=== PATIENT | male | born 1960 ===

== ENCOUNTER 2017-09-04 22:55 | Emergency (ER) | payer MEDICARE ==
[2017-09-04 22:55] VITALS: BMI 27.5
[2017-09-05 01:19] VITALS: BP 118/64; PULSE 84; RESP 18; TEMP 98.2; O2SAT 99
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
[2017-09-05] MEDS ORDERED: oxyCODONE 5 mg Immediate Release Tab PO STA ×2 (01:56→05:49)
--- NOTE | 2017-09-05 05:05 | RAD ---
EXAM: XR Right Ankle Complete, 3 or More Views CLINICAL HISTORY: 57 years old, male; Pain; Ankle; Right; Additional info: Injury TECHNIQUE: Frontal, lateral and oblique views of the right ankle. COMPARISON: No relevant prior studies available. FINDINGS: Limitations: Suboptimal positioning. Bones/joints: No displaced fracture. No dislocation. Hallux valgus deformity. Hammertoe deformities. No significant joint effusion. Soft tissues: Minimal calcification along distal Achilles tendon. IMPRESSION: 1. No displaced fracture. 2. If pain persists, suggest splinting and follow up radiographs in 7-10 days. 3. Incidental/non-acute findings are described above.
--- NOTE | 2017-09-05 10:34 | RAD ---
PROCEDURE: Pelvis and left hip HISTORY: injury COMPARISON: TECHNIQUE: Five views FINDINGS: There is an extensive amount of hardware in the left hip and femur. There is complete fusion of the left hip joint. A compression screw extends through the hip into the acetabulum and iliac bone. There is a distal thin intramedullary génesis that splits distally extending into both femoral condyles. There is no evidence of acute fracture. IMPRESSION: No acute findings
== END 2017-09-05 06:04 | disposition home or self-care (01) ==
LOC: ED 22:55
DX: S93.401A Sprain of unspecified ligament of right ankle, initial encounter (principal); S76.012A Strain of muscle, fascia and tendon of left hip, initial encounter; W01.0XXA Fall on same level from slipping, tripping and stumbling without subsequent striking against object, initial encounter; Y92.89 Other specified places as the place of occurrence of the external cause

== ENCOUNTER 2017-12-18 12:44 | Emergency (ER) | payer MEDICARE ==
[2017-12-18 12:56] VITALS: BMI 22.8
[2017-12-18 13:04] VITALS: BP 121/77; PULSE 84; RESP 18; TEMP 98.2; O2SAT 100
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
--- NOTE | 2017-12-18 13:58 | RAD ---
PROCEDURE: Left Foot Radiographs. HISTORY: Left foot pain COMPARISON: None. FINDINGS: BONES: There is diffuse bone demineralization. There is no acute fracture or bone destruction. Bone alignment is normal. JOINTS: Normal. SOFT TISSUES: Normal. OTHER FINDINGS: None. IMPRESSION: No acute fracture or dislocation.
== END 2017-12-18 15:08 | disposition home or self-care (01) ==
LOC: ED 12:44
DX: S93.602A Unspecified sprain of left foot, initial encounter (principal); W20.8XXA Other cause of strike by thrown, projected or falling object, initial encounter; I50.9 Heart failure, unspecified; I10 Essential (primary) hypertension; Z87.891 Personal history of nicotine dependence

== ENCOUNTER 2018-01-17 16:32 | Inpatient (IN) | payer MEDICARE, OTHER ==
[2018-01-17 16:32] VITALS: BMI 22.8
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
--- NOTE | 2018-01-17 17:36 | CT ---
PROCEDURE: CT HEAD WITHOUT CONTRAST. HISTORY: AMS, ? seizure/syncope COMPARISON: 12/29/2016 TECHNIQUE: Axial computed tomography images were obtained through the head/brain without intravenous contrast. Coronal and sagittal reconstructed images. Radiation dose: Total exam DLP = 884.98 mGy-cm. This CT exam was performed using one or more of the following dose reduction techniques: Automated exposure control, adjustment of the mA and/or kV according to patient size, and/or use of iterative reconstruction technique. FINDINGS: HEMORRHAGE: No intracranial hemorrhage. BRAIN: No mass effect or edema. No atrophy or chronic microvascular ischemic changes. VENTRICLES: Unremarkable. No hydrocephalus. CALVARIUM: Unremarkable. PARANASAL SINUSES: Unremarkable as visualized. No significant inflammatory changes. MASTOID AIR CELLS: Unremarkable as visualized. No inflammatory changes. OTHER FINDINGS: None. IMPRESSION: No acute intracranial abnormalities. No significant findings to account for the clinical presentation.
--- NOTE | 2018-01-17 17:53 | RAD ---
HISTORY: AMS, ? seizure COMPARISON: 08/01/2016 FINDINGS: LUNGS: No active pulmonary disease. PLEURA: No significant pleural effusion identified, no pneumothorax apparent. CARDIOVASCULAR: No radiographic findings to suggest acute or significant cardiovascular disease. OSSEOUS STRUCTURES: No significant abnormalities. VISUALIZED UPPER ABDOMEN: Normal. OTHER FINDINGS: None. IMPRESSION: No active disease. No significant interval change compared to the prior examination(s). Concordant results with the preliminary interpretation rendered by the emergency department physician procedure.
[2018-01-17 18:27] LABS: BASO # 0.03 K/mm3 (0.0-2.0); BASO % 0.2 % (0.0-3.0); EOS % 0.2 % (1.5-5.0); GRAN # 10.12 (1.4-6.5); GRAN % 83.6 % (50.0-68.0); HEMOGLOBIN 12.8 g/dL (14.0-18.0); LYMPH # 1.3 (1.2-3.4); LYMPH % 10.6 % (22.0-35.0); MEAN CELL VOLUME 87.1 fl (80.0-105.0); MEAN CORPUSCULAR HGB CONC 34.5 g/dl (31.0-37.0); MEAN PLATELET VOLUME 9.6 fl (7.0-11.0); MONO # 0.7 (0.1-0.6); MONO % 5.4 % (1.0-6.0); RBC 4.26 10^6/uL (3.5-6.1); RED CELL DISTRIBUTION WIDTH 13.3 % (11.5-14.5); WHITE BLOOD COUNT 12.1 10^3/ul (4.5-11.0)
[2018-01-17 18:38] LABS: INR 1.18 (0.93-1.08); PARTIAL THROMBOPLASTIN TIME 24.9 Seconds (25.1-36.5); PROTHROMBIN TIME 13.5 SECONDS (9.4-12.5)
[2018-01-17 18:46] LABS: ALB/GLOB RATIO 1.4 (1.1-1.8); ALBUMIN 4.8 g/dL (3.0-4.8); ALT/SGPT 20 U/L (7-56); AST/SGOT 39 U/L (17-59); BLOOD UREA NITROGEN 24 mg/dL (7-21); GFR AFRICAN-AMERICAN > 60; GFR NON-AFRICAN AMERICAN > 60
[2018-01-17] MEDS ORDERED: Potassium Chloride 20 mEq ER Tab PO STA ×2 (18:48→21:24)
[2018-01-17] MEDS ORDERED: HYDROmorphone 1 mg/ml ISec IVP STA (18:52)
[2018-01-17 18:56] LABS: TROPONIN I < 0.01 ng/mL
--- NOTE | 2018-01-17 21:09 | CARD ---
APPROVED REPORT EKG Measurement Heart [id number] <Conclusion> Normal sinus rhythm Right bundle branch block Abnormal ECG
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
[2018-01-17] MEDS: Morphine 30 mg SR Tab PO SCH (22:38)
[2018-01-18] MEDS: oxyCODONE 30 mg Immediate Release Tab PO PRN ×2 (03:27→15:02)
[2018-01-18] MEDS: Pantoprazole 40 mg EC Tab PO SCH (05:17)
[2018-01-18 06:47] LABS: BASO # 0.04 K/mm3 (0.0-2.0); BASO % 0.3 % (0.0-3.0); EOS # 0.1 (0.0-0.7); EOS % 0.5 % (1.5-5.0); GRAN # 9.04 (1.4-6.5); GRAN % 73.2 % (50.0-68.0); HEMOGLOBIN 12.1 g/dL (14.0-18.0); LYMPH # 2.5 (1.2-3.4); LYMPH % 20.1 % (22.0-35.0); MEAN CELL VOLUME 88.8 fl (80.0-105.0); MEAN CORPUSCULAR HEMOGLOBIN 29.6 pg (25.0-35.0); MEAN CORPUSCULAR HGB CONC 33.3 g/dl (31.0-37.0); MONO # 0.7 (0.1-0.6); MONO % 5.9 % (1.0-6.0); RBC 4.09 10^6/uL (3.5-6.1); RED CELL DISTRIBUTION WIDTH 13.4 % (11.5-14.5); WHITE BLOOD COUNT 12.4 10^3/ul (4.5-11.0)
[2018-01-18 06:59] LABS: LDL CHOLESTEROL 62 mg/dL (0-129)
[2018-01-18 07:11] LABS: FREE T4 1.83 ng/dL (0.78-2.19)
[2018-01-18 07:18] LABS: INR 1.21 (0.93-1.08)
[2018-01-18 07:20] LABS: ALB/GLOB RATIO 1.3 (1.1-1.8); ALBUMIN 4.1 g/dL (3.0-4.8); ALT/SGPT 17 U/L (7-56); AST/SGOT 26 U/L (17-59); BLOOD UREA NITROGEN 18 mg/dL (7-21); CALCIUM 8.3 mg/dL (8.4-10.5); GFR AFRICAN-AMERICAN > 60; GFR NON-AFRICAN AMERICAN > 60; HDL CHOLESTEROL 59 mg/dL (29-60)
[2018-01-18] MEDS ORDERED: Potassium Chloride 20 mEq ER Tab PO STA (07:33)
[2018-01-18 09:00] LABS: TROPONIN I < 0.01 ng/mL
[2018-01-18 09:06] LABS: FREE T4 1.89 ng/dL (0.78-2.19); T4 8.9 ug/dL (5.5-11.0)
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
[2018-01-18] MEDS ORDERED: Gadodiamide 287 MG/ML VIAL (15ML) IV ONE (10:12)
[2018-01-18] MEDS: POLYETHYLENE GLYCOL 3350 17 GM/Dose PACKET PO SCH ×3 (12:28→18:08)
[2018-01-18] MEDS: Enoxaparin 40 mg Syringe SC SCH (12:28)
[2018-01-18] MEDS: Morphine 30 mg SR Tab PO SCH ×2 (12:28→21:49)
[2018-01-18 12:41] LABS: FOLATE 10.8 ng/mL
--- NOTE | 2018-01-18 12:51 | US ---
PROCEDURE: Bilateral carotid artery duplex ultrasound HISTORY: Carotid stenosis PHYSICIAN(S): David Patel MD. TECHNIQUE: Duplex sonography and color-flow Doppler were used to evaluate the carotid bifurcations and limited segments of the vertebral arteries bilaterally. FINDINGS: There is mild smooth heterogeneous plaque noted at the carotid bifurcations bilaterally. The peak systolic velocity in the proximal right internal carotid artery is 69 cm/sec. This corresponds to a 20 to 39% proximal right ICA stenosis. Normal systolic velocities are noted in the proximal right external carotid artery. There is antegrade flow in the right vertebral artery. The peak systolic velocity in the proximal left internal carotid artery is 69 cm/sec. This corresponds to a 20 to 39% proximal left ICA stenosis. Normal systolic velocities are noted in the proximal left external carotid artery. There is antegrade flow in the left vertebral artery. IMPRESSION: 1. Bilateral 20-39% proximal ICA stenoses. 2. Antegrade flow in both vertebral arteries.
--- NOTE | 2018-01-18 13:39 | CARD ---
APPROVED REPORT EXAM: Two-dimensional and M-mode echocardiogram with Doppler and color Doppler. INDICATION Syncope 2D DIMENSIONS Left Atrium (2D)3.0 (1.6-4.0cm)IVSd1.3 (0.7-1.1cm) LVDd3.5 (3.9-5.9cm)PWd1.3 (0.7-1.1cm) LVDs2.6 (2.5-4.0cm)FS (%) 25.1 % LVEF (%)50.6 (>50%) M-Mode DIMENSIONS Aortic Root3.50 (2.2-3.7cm)Aortic Cusp Exc.2.10 (1.5-2.0cm) Aortic Valve AoV Peak Bojgwrtk234.0cm/Bogdan Peak GR.6mmHg Mitral Valve MV E Kyebohnb46.4cm/sMV A Fqiikajv26.4cm/sE/A ratio1.3 TDI E/Lateral E'0.0E/Medial E'0.0 Tricuspid Valve TR Peak Dzkmuzha488dt/sRAP VYZPMMMD28qhVgLE Peak Gr.19mmHg [id number] LEFT VENTRICLE The left ventricle is normal size. There is normal left ventricular wall thickness. Left ventricle systolic function is borderline. There is normal LV segmental wall motion. Transmitral Doppler flow pattern is abnormal. RIGHT VENTRICLE The right ventricle is normal size. There is normal right ventricular wall thickness. The right ventricular systolic function is normal. ATRIA The left atrium size is normal. The right atrium size is normal. AORTIC VALVE The aortic valve is not well visualized. No aortic regurgitation is present. There is no aortic valvular stenosis. MITRAL VALVE The mitral valve is normal in structure. There is no mitral valve regurgitation noted. There is no mitral valve stenosis. GREAT VESSELS The aortic root is normal in size. PERICARDIAL EFFUSION There is no pericardial effusion. <Conclusion> The left ventricle is normal size. There is normal left ventricular wall thickness. Left ventricle systolic function is borderline. There is normal LV segmental wall motion.
[2018-01-18 14:49] LABS: URINE BILIRUBIN NEGATIVE (NEGATIVE); URINE BLOOD SMALL (NEGATIVE); URINE GLUCOSE (UA) NEGATIVE (NEGATIVE); URINE LEUKOCYTE ESTERASE NEGATIVE Leu/uL (NEGATIVE); URINE PROTEIN NEGATIVE mg/dL (<30 mg/dL); URINE UROBILINOGEN 0.2 E.U./dL (<1 E.U./dL)
[2018-01-18 14:50] LABS: URINE APPEARANCE CLEAR (CLEAR); URINE COLOR YELLOW (YELLOW)
[2018-01-18 14:53] LABS: URINE BACTERIA FEW (NEG); URINE WBC 0 - 2 /hpf (0-6)
--- NOTE | 2018-01-18 14:57 | MRI ---
PROCEDURE: MRI BRAIN WITH AND WITHOUT CONTRAST HISTORY: ?syncope/siezure activity COMPARISON: None. TECHNIQUE: Multiplanar, multisequence MR images of the brain were obtained with and without intravenous contrast enhancement. FINDINGS: HEMORRHAGE: None DWI: No evidence of an acute or early subacute infarction. BRAIN PARENCHYMA: There is borderline diffuse cerebral atrophy appreciated. Minimal white matter signal changes are appreciated at the left periventricular space with a chronic lacune identified at the left periventricular white matter as well. Corticomedullary differentiation remains good throughout the brain and high-resolution imaging through the temporal lobes fail to demonstrate a pattern that would suggest mesial temporal sclerosis. There is no mass effect or suspicious extra-axial fluid collection identified. Posterior fossa contents appear grossly unremarkable. ENHANCEMENT: No abnormal intracranial enhancement. VENTRICLES: Unremarkable. No hydrocephalus. CRANIUM: Unremarkable. ORBITS: Grossly unremarkable. PARANASAL SINUSES/MASTOIDS: Clear VASCULAR SYSTEM: Skull base flow voids intact. OTHER FINDINGS: None . IMPRESSION: 1. Limited diffuse cerebral pleural atrophy and trace chronic microangiopathy. No abnormal intracranial enhancement. 2. No definite intracranial hemorrhage, mass effect or evidence of an acute or subacute brain infarction at this time. A chronic lacune is seen in the left periventricular white matter. 3. High-resolution imaging through the temporal lobes fails demonstrate definitive pathology.
--- NOTE | 2018-01-18 14:59 | MRI ---
PROCEDURE: Magnetic Resonance Angiography Brain HISTORY: ?syncope/seizure COMPARISON: None available. TECHNIQUE: 3D time of flight MR angiography of the intracranial arteries was performed. Rotating maximum intensity projection images were generated. FINDINGS: INTERNAL CAROTID ARTERIES: Unremarkable. The skull base, petrous, cavernous and supraclinoid segments are bilaterally widely patient. ANTERIOR CEREBRAL ARTERIES: Unremarkable. A1 and A2 segments are widely patent. Smaller distal branches unremarkable, as visualized. MIDDLE CEREBRAL ARTERIES: Unremarkable. M1 and M2 segments are widely patent. Perisylvian branches grossly symmetric. POSTERIOR CIRCULATION: Basilar Artery: Unremarkable. Distal Vertebral Arteries: Patent as imaged. Right dominant vertebrobasilar circulation. Posterior Cerebral Arteries: Unremarkable. Posterior Inferior Cerebellar Arteries: Unremarkable. ANEURYSM/ VASCULAR MALFORMATIONS: None. OTHER FINDINGS: None. IMPRESSION: Unremarkable MR angiography of the brain.
[2018-01-18] MEDS: Sodium Chloride 0.9% 1,000 ML IV SCH ×3 (15:03→20:37)
--- NOTE | 2018-01-18 16:38 | CP.PCM.PCO ---
Physician Communication Note - Physician Communication Note Physician Communication Note: pt was at ECHO, as per RN pt is not agitated, no acute issues, will f/u am
[2018-01-18 17:10] LABS: BARBITURATES, UR NEGATIVE (NEGATIVE); BENZODIAZEPINES, UR NEGATIVE (NEGATIVE); OPIATES, UR POSITIVE (NEGATIVE); PHENCYCLIDINE, UR NEGATIVE (NEGATIVE)
--- NOTE | 2018-01-18 19:16 | PN ---
DATE: 01/18/2018 SUBJECTIVE: The patient is seen on his way to MRI. Overnight nurse's notes were reviewed. The patient's telemetry monitoring shows sinus rhythm, sinus bradycardia. PHYSICAL EXAMINATION: VITAL SIGNS: T-max is 98; pulse 61, 56, 58; blood pressure 143/90; respirations 18; O2 sat 96%. HEENT: Head examination normocephalic, atraumatic. HEENT examination shows pinkish conjunctivae. Anicteric sclerae. No oropharyngeal lesion. No neck rigidity. CHEST: Kyphosis. LUNGS: Shows no rales, crackles or wheezing. CARDIOVASCULAR: S1, S2, regular rhythm. ABDOMEN: Soft. Positive bowel sound. No hepatosplenomegaly noted. GENITALIA: Male. RECTAL: Deferred. EXTREMITY: Shows no pitting edema, no calf tenderness, no Homans' sign. MUSCULOSKELETAL: Shows positive left lower extremity deformity. Motor strength is 5/5 in the upper and lower extremity. Cranial nerves II through XII limited. Gait examination is not tested. PSYCHIATRIC: Positive for narcotic dependent. DIAGNOSTICS: On 01/18/2018, WBC 12.4, hemoglobin and hematocrit 12.1 and 36.3; platelet 372; granulocytes 73. PT 14, INR 1.21. Chemistries: Potassium is 3.5, BUN is down to normal at 18, creatinine 0.6, calcium 8.3, magnesium 2.1. LFTs are within normal limit. Troponin is negative. Cholesterol 149, LDL 62, HDL 59. Vitamin B12 of 358. Thyroid panel is negative. RPR negative. The patient's carotid ultrasound, MRI of the brain were noted. Echocardiogram results were noted. IMPRESSION AND PLAN: 1. Questionable seizure versus questionable syncope. 2. Questionable possible drug and narcotic withdrawal symptoms. 3. Questionable seizure-like activity with questionable and possible syncope. 4. Chronic narcotic-dependent pain syndrome. 5. History of avascular necrosis of the left lower extremity. 6. Asymptomatic bradycardia. 7. History of hypertension. 8. Leukocytosis with granulocytosis. 9. Normocytic anemia. 10. Hypokalemia. 11. Mild prerenal kidney injury. 12. Ketonuria. 13. Microscopic hematuria. 14. Pyuria. 15. Bacteriuria. 16. Bilateral 20-39% proximal internal carotid artery stenosis. 17. Cerebral cortical atrophy of the brain. 18. Left periventricular white matter chronic lacunar infarct. 21. Left periventricular white matter chronic lacunar infarct. 22. Left ventricular ejection fraction of 50%. 23. Borderline left ventricular systolic function of 50%. 24. Right bundle-branch block. 25. Hypokalemia. 26. Constipation. 27. Narcotic dependent. 28. Chronic narcotic-dependent pain syndrome. 29. Hypercholesterolemia. 1. Questionable seizure versus questionable syncope. 2. Questionable possible drug and narcotic withdrawal symptoms. 3. Questionable seizure-like activity with questionable and possible syncope. 4. Chronic narcotic-dependent pain syndrome. 5. History of avascular necrosis of the left lower extremity. 6. Asymptomatic bradycardia. 7. History of hypertension. 8. Leukocytosis with granulocytosis. 9. Normocytic anemia. 10. Hypokalemia. 11. Mild prerenal kidney injury. 12. Ketonuria. 13. Microscopic hematuria. 14. Pyuria. 15. Bacteriuria. 16. Bilateral 20-39% proximal internal carotid artery stenosis. 17. Cerebral cortical atrophy of the brain. 18. Left periventricular white matter chronic lacunar infarct. 21. Left periventricular white matter chronic lacunar infarct. 22. Left ventricular ejection fraction of 50%. 23. Borderline left ventricular systolic function of 50%. 24. Right bundle-branch block. 25. Hypokalemia. 26. Constipation. 27. Narcotic dependent. 28. Chronic narcotic-dependent pain syndrome. 29. Hypercholesterolemia. Plan at this time, the patient is awaiting Neurology, Psychiatry and Cardiology evaluation. The patient's EEG results are pending. Repeat labs ordered. Current medications: Aspirin 81 mg daily. The patient's potassium supplementation ordered, Lipitor 40 mg daily, Lovenox 40 mg subcu daily, MiraLax 17 g three times a day, morphine extended release 90 mg every 12, Lovenox 40 mg subcu daily, Lipitor 40 mg daily, MiraLax 17 g three times a day, morphine extended release 90 mg every 12, oxycodone 30 mg every 8 p.r.n., Protonix 40 mg daily, Senokot 17.2 mg at bedtime, 0.9 normal saline at 100 mL an hour, oxygen 2 L continuous. Heart-healthy diet, out of bed, seizure precaution, CLIFFORD stockings, SCDs, occupational therapy, physical therapy ordered. The patient underwent EEG, results pending. The patient is awaiting Neurology, Cardiology, Psychiatry evaluation. Dictated and electronically signed, not read. Luis San MD [facility]
--- NOTE | 2018-01-18 23:18 | CON ---
DATE: 01/18/2018 HISTORY OF PRESENT ILLNESS: This is a 57-year-old male with past medical history of right bundle branch block , history of DVT, COPD, chronic pain and osteoarthritis, came to the emergency room, possibly had a witnessed seizure-like activity and tried to wake him up and immediately after the episode, patient did not bit tongue, no urinary incontinence, with the patient. PAST MEDICAL HISTORY: Hypertension, anemia, anxiety, depression, history of DVT, COPD. SOCIAL HISTORY: Active smoker. ALLERGIES: ALLERGIC TO CELEBREX, IBUPROFEN AND NAPROXEN. MEDICATIONS: Oxycodone. PHYSICAL EXAMINATION: HEENT: Normocephalic, atraumatic. NECK: Supple. NEUROLOGIC: Awake, oriented to self. ASSESSMENT: A 57-year-old with a past medical history of deep venous thrombosis, chronic obstructive lung disease, arthritis and query seizure at home. No tongue bite, no urinary incontinence. CAT scan of the head was done, which was reported negative and workup in progress. We will do MRI of the head and MRA. We will follow up. Ernst Snyder MD
[2018-01-19] MEDS: Pantoprazole 40 mg EC Tab PO SCH (05:09)
[2018-01-19] MEDS: Sodium Chloride 0.9% 1,000 ML IV SCH ×2 (05:12→22:52)
[2018-01-19 06:53] LABS: BASO # 0.03 K/mm3 (0.0-2.0); BASO % 0.4 % (0.0-3.0); EOS # 0.2 (0.0-0.7); EOS % 1.9 % (1.5-5.0); GRAN # 4.92 (1.4-6.5); GRAN % 63.5 % (50.0-68.0); HEMOGLOBIN 11.7 g/dL (14.0-18.0); LYMPH % 26.3 % (22.0-35.0); MEAN CELL VOLUME 88.3 fl (80.0-105.0); MEAN CORPUSCULAR HEMOGLOBIN 29.8 pg (25.0-35.0); MEAN CORPUSCULAR HGB CONC 33.8 g/dl (31.0-37.0); MEAN PLATELET VOLUME 9.7 fl (7.0-11.0); MONO # 0.6 (0.1-0.6); MONO % 7.9 % (1.0-6.0); RBC 3.92 10^6/uL (3.5-6.1); RED CELL DISTRIBUTION WIDTH 13.1 % (11.5-14.5); WHITE BLOOD COUNT 7.8 10^3/ul (4.5-11.0)
[2018-01-19 07:45] LABS: ALB/GLOB RATIO 1.3 (1.1-1.8); ALBUMIN 3.8 g/dL (3.0-4.8); ALT/SGPT 22 U/L (7-56); AST/SGOT 22 U/L (17-59); BILIRUBIN,DIRECT 0.2 mg/dL (0.0-0.4); BLOOD UREA NITROGEN 8 mg/dL (7-21); CALCIUM 8.4 mg/dL (8.4-10.5); GFR AFRICAN-AMERICAN > 60; GFR NON-AFRICAN AMERICAN > 60
[2018-01-19] MEDS ORDERED: Potassium Chloride 40 mEq/30 ml LIQ UD PO ONE (09:03)
[2018-01-19] MEDS: Enoxaparin 40 mg Syringe SC SCH (09:12)
[2018-01-19] MEDS: POLYETHYLENE GLYCOL 3350 17 GM/Dose PACKET PO SCH ×3 (09:13→17:30)
[2018-01-19] MEDS: Morphine 30 mg SR Tab PO SCH ×2 (09:13→22:50)
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
--- NOTE | 2018-01-19 12:55 | DS ---
HOSPITAL COURSE: The patient is seen in room 362 bed 1. The patient is lying in the bed. Overnight nurse's notes were reviewed. EEG was completed, results pending. The patient was seen by speech therapist. The patient was noted to have [id number] oropharyngeal dysphagia with moderate aspiration due to oral motor weakness, low voice, slow oral transit, oral residual, intermittent fatigue and tremors. Overnight nurse's notes were reviewed. No adverse events documented; otherwise, the patient was pain free. PHYSICAL EXAMINATION: VITAL SIGNS: T-max 98.2; pulse 63, 65; blood pressure 95/72, 123/89, 143/90, 149/89; respirations 20, O2 sat 95-96%. HEENT: The patient's head examination: Normocephalic, atraumatic. HEENT examination shows pinkish conjunctivae. Anicteric sclerae. No oropharyngeal lesion. No neck rigidity. CHEST: Examination, symmetrical. LUNGS: Examination shows no rales, crackles or wheezing. CARDIOVASCULAR: S1, S2. Regular rhythm. ABDOMEN: Soft. Positive bowel sound. GENITALIA: Male. RECTAL: Examination is deferred. EXTREMITIES: Shows no pitting edema, no calf tenderness, no Velia's signs. Motor strength is 5/5. MUSCULOSKELETAL: Examination shows a body mass index of 23. Cranial nerves II-XII limited. Gait examination is not tested. DIAGNOSTICS: 01/19, WBC 7.8, hemoglobin/hematocrit 11.7 and 34.6; platelets 328. Sodium 143, potassium 3.5, chloride 103, CO2 29, anion gap 15, BUN 8, creatinine 0.6. GFR greater than 60. Glucose 96, calcium 8.4, magnesium 2.1 and 1.8. LFTs are normal. Troponin is negative. B12, folate, lipid panel was noted. Blood cultures negative. MRI and MRA of the brain was noted. Echocardiogram results were noted and explained to the patient. FINAL IMPRESSION, PLAN AND DISCHARGE DIAGNOSES: 1. Questionable seizure-like activity with questionable possible syncope versus possible drug and narcotic withdrawal. 2. Chronic narcotic-dependent pain syndrome. 3. Hypertension. 4. Leukocytosis with granulocytosis. 5. Normocytic anemia. 6. Hypokalemia. 7. Prerenal kidney injury. 8. Ketonuria. 9. Microscopic hematuria. 10. Bacteriuria. 11. Bilateral 20-39% proximal internal carotid artery stenosis. 12. Cerebral cortical atrophy of the brain. 13. Left periventricular white matter chronic lacunar infarct. 14. Borderline left ventricular systolic function with left ventricular ejection fraction of 51%. 15. Right bundle-branch block. 1. Questionable seizure versus questionable syncope. 2. Questionable possible drug and narcotic withdrawal symptoms. 3. Questionable seizure-like activity with questionable and possible syncope. 4. Chronic narcotic-dependent pain syndrome. 5. History of avascular necrosis of the left lower extremity. 6. Asymptomatic bradycardia. 7. History of hypertension. 8. Leukocytosis with granulocytosis. 9. Normocytic anemia. 10. Hypokalemia. 11. Mild prerenal kidney injury. 12. Ketonuria. 13. Microscopic hematuria. 14. Pyuria. 15. Bacteriuria. 16. Bilateral 20-39% proximal internal carotid artery stenosis. 17. Cerebral cortical atrophy of the brain. 18. Left periventricular white matter chronic lacunar infarct. 21. Left periventricular white matter chronic lacunar infarct. 22. Left ventricular ejection fraction of 50%. 23. Borderline left ventricular systolic function of 50%. 24. Right bundle-branch block. 25. Hypokalemia. 26. Constipation. 27. Narcotic dependent. 28. Chronic narcotic-dependent pain syndrome. 29. Hypercholesterolemia. 1. Questionable seizure versus questionable syncope. 2. Questionable possible drug and narcotic withdrawal symptoms. 3. Questionable seizure-like activity with questionable and possible syncope. 4. Chronic narcotic-dependent pain syndrome. 5. History of avascular necrosis of the left lower extremity. 6. Asymptomatic bradycardia. 7. History of hypertension. 8. Leukocytosis with granulocytosis. 9. Normocytic anemia. 10. Hypokalemia. 11. Mild prerenal kidney injury. 12. Ketonuria. 13. Microscopic hematuria. 14. Pyuria. 15. Bacteriuria. 16. Bilateral 20-39% proximal internal carotid artery stenosis. 17. Cerebral cortical atrophy of the brain. 18. Left periventricular white matter chronic lacunar infarct. 21. Left periventricular white matter chronic lacunar infarct. 22. Left ventricular ejection fraction of 50%. 23. Borderline left ventricular systolic function of 50%. 24. Right bundle-branch block. 25. Hypokalemia. 26. Constipation. 27. Narcotic dependent. 28. Chronic narcotic-dependent pain syndrome. 29. Hypercholesterolemia. 16. [id number] oropharyngeal dysphagia with moderate risk for aspiration due to oral motor weakness, low voice, slow oral transit, oral residue and intermittent fatigue and tremors. 17. Constipation. 18. Dyslipidemia. PLAN: At this time, the patient has been medically cleared. The patient will be discharged to Psychiatry Service to 5B, was accepted; otherwise, the patient main may be discharged home after cleared by Neurology, Psychiatry and Cardiology if EEG is negative. Discharge followup with his own PMD, Neurology, Psychiatry and Pain Management doctor. The patient and the family to release all records from this hospitalization to PMD, Neurology, Psychiatry and Pain Management. DISCHARGE RESTRICTION: No alcohol, no smoking, no driving. The patient was advised to resume all home medications. The patient's home medications are Colace 100 mg three times a day, Tylenol 650 every 6 hours p.r.n., DuoNeb nebulizer four times a day, Xanax 2 mg every 8 hours p.r.n., aspirin 81 daily, Lipitor 40 mg daily, Drisdol 50,000 units weekly, morphine extended release 100 mg p.o. every 12 hours, oxycodone 30 mg four times a day. p.r.n. The last two medications, morphine and oxycodone, appears to be the most active medication. The other medications, the patient has apparently been not taking. The patient was also advised to resume his Protonix 40 mg, daily MiraLax 17 g 3 times a day. In addition, the patient was advised to take aspirin 81 daily, Colace 100 mg three times a day, Lipitor 40 mg daily, MiraLax 17 g three times a day, Protonix 40 mg daily. The patient was extensively explained about the details of his medical condition. The patient was explained about all the diagnostic test results which he acknowledged to understand. All questions concerned answered at length during this hospitalization at length and the patient was advised to minimize or control his narcotic use and the patient was advised about the consequences and risk of narcotic use, which he acknowledged to understand. The patient was advised close outpatient followup with his primary care physician, Neurology, Psychiatry, Pain Management, and Cardiology. Dictated and electronically signed, not read. Luis San MD [facility] # [id number] MTDAhmet
--- NOTE | 2018-01-19 14:13 | CON ---
DATE: 01/19/2018 CARDIOLOGY CONSULTATION HISTORY OF PRESENT ILLNESS: The patient is a 57-year-old male who presented with an episode of mild confusion. He states he was resting when all of a sudden developed mild headache and dizziness and some forgetfulness. No chest pain noted. No shortness of breath. PAST MEDICAL HISTORY: Includes a history of pulmonary embolism several years ago. The patient had seizure as a childhood. He denies previous cardiac history although is unaware of a previous myocardial infarction. No chest pain. No shortness of breath. He does suffer from hypercholesterolemia. He is on oxycodone at home. REVIEW OF SYSTEMS: [id number] review of systems was free of cardiac symptomatology. PHYSICAL EXAMINATION: VITAL SIGNS: Blood pressure 100 systolic, heart rates in the 70s. NECK: Negative JVD. LUNGS: Without rales. HEART: S1 and S2. EXTREMITIES: Without edema. LABORATORY DATA: Hemoglobin is 11.7. Chemistries: BUN and creatinine are unremarkable. Troponin is negative x1. EKG reveals normal sinus rhythm with right bundle-branch block with nonspecific ST-T changes. Echocardiogram reveals good LV function. No LV outflow obstruction. IMPRESSION: 1. Altered mental status, which is now resolved. 2. History of hypercholesterolemia. 3. History of pulmonary embolism. 4. Abnormal EKG. PLAN: The patient is being discharged today. We will arrange for an outpatient stress test to rule out coronary artery disease, which is unrelated to his presenting symptoms. David Zhao MD
[2018-01-19] MEDS: oxyCODONE 30 mg Immediate Release Tab PO PRN (16:50)
--- NOTE | 2018-01-20 02:59 | CON ---
DATE: 01/19/2018 HISTORY OF PRESENT ILLNESS: In short, the patient is a 57-year-old male who was admitted on the medical side for evaluation of altered mental status and possible seizures witnessed by his . Patient presented to be depressed and patient has multiple stressors in his life, that is why medical team requested evaluation by this data analyst report writer. Patient was seen and examined today. Patient presented to be alert, pleasant, mildly anxious. Patient's is next to him. Patient's son is resting in his bed. As per patient, patient's son has autistic spectrum disorder and he is blind. Patient reported that he lost his mother last year and anniversary is coming this February. Patient reported that recently he was feeling depressed. Patient reported that he has nightmares. Patient reported that at times he feels hopeless and helpless. Patient reported that he has difficulty to function, has insomnia, poor appetite, but patient denied any thoughts of killing himself or others. Patient reported that he is not seeing Psychiatrist in the community and alprazolam was prescribed by Dr. Herrera, Brick Baker. Patient reported that at times he could hear some noises or voices what are not there, but patient does not present to be psychotic. Patient reported that he never tried to kill himself in the past . Based on the history, patient has one short psychiatric admission and it was under Dr. Arellano's service in 2013 for suicidal ideations. Patient said that he is stressed out to take care of his autistic son. This data analyst report writer reviewed vital signs, seems to be stable. Temperature 98.2, pulse is 72, blood pressure 95/72, respiration 20, oxygen saturation is 95. As per nursing staff, patient has episode of desaturation when he tried to ambulate. Physical therapy also evaluated the patient and recommended Transitional Care Unit. This data analyst report writer reviewed medical notes as well as patient had brain MRI, which was done yesterday . There is no definite intracranial hemorrhage, mass effect or evidence of acute or subacute brain infarction at this time. A chronic lacunar seen in left periventricular white matter. High resolution imaging through the temporal lobe failed to demonstrate definitive pathology, limited diffuse atrophy and trace chronic microangiopathy. Had MRA also done, which was negative. Patient was seen by Dr. Snyder, notes reviewed. MEDICATIONS: Reviewed. Patient is on aspirin, Lipitor, Colace, Lovenox, morphine, oxycodone, Protonix, MiraLax, Senokot and sodium chloride. LABORATORY DATA: Labs reviewed. Initially,patient has leukocytosis, but today patient's WBC cells 7.8, hemoglobin and hematocrit 11.7 and 34.6. Coagulation reviewed. Chemistry reviewed. Toxicology positive for opioids. MENTAL STATUS EXAMINATION: Patient presented to be alert, oriented, pleasant, cooperative, intermittent eye contact. Speech was normal rate, tone, quality and quantity. Mood described, "I am depressed." Affect was constricted. Thought process: Sometimes, patient appears to be circumstantial and tangential. Thought content: Patient reported that at times he hears some voices or noises. Patient does not appear to be psychotic, but guarded. Insight and judgment seems to be fair. Impulses are well controlled. IMPRESSION: Based on presentation, patient most likely has mood spectrum disorder, rule out major depressive disorder, rule out posttraumatic stress disorder. Patient's twin daughter in early infancy. Patient's son is having autistic spectrum and he is blind. PLAN: This data analyst report writer offered the patient admission to the Psychiatric Inpatient Unit. Patient wants to think about it with his . Patient denied that he is suicidal, but patient appears to be depressed and anxious. Patient might benefit from admission, but this is up to the family. Meanwhile, patient has multiple medical issues. Patient desaturates when ambulates also. Physical therapy recommended Transitional Care Unit. This data analyst report writer offered Remeron for the nighttime for insomnia and depressive symptoms. Risks, benefits and alternatives discussed with the patient over the weekend. Dr. Coleman will follow up on this patient. Thank you very much for letting me participate in care of your patient. Should you have any questions, give me a call back. Cindy Gould MD
[2018-01-20] MEDS: oxyCODONE 30 mg Immediate Release Tab PO PRN ×2 (05:09→13:37)
[2018-01-20] MEDS: Pantoprazole 40 mg EC Tab PO SCH (06:30)
[2018-01-20 06:59] LABS: BASO # 0.02 K/mm3 (0.0-2.0); BASO % 0.3 % (0.0-3.0); EOS # 0.1 (0.0-0.7); EOS % 1.6 % (1.5-5.0); GRAN # 5.27 (1.4-6.5); GRAN % 70.2 % (50.0-68.0); HEMOGLOBIN 12.1 g/dL (14.0-18.0); LYMPH # 1.5 (1.2-3.4); LYMPH % 20.3 % (22.0-35.0); MEAN CELL VOLUME 88.1 fl (80.0-105.0); MEAN PLATELET VOLUME 9.9 fl (7.0-11.0); MONO # 0.6 (0.1-0.6); MONO % 7.6 % (1.0-6.0); RBC 4.04 10^6/uL (3.5-6.1); WHITE BLOOD COUNT 7.5 10^3/ul (4.5-11.0)
[2018-01-20 07:24] LABS: ALB/GLOB RATIO 1.2 (1.1-1.8); ALBUMIN 3.9 g/dL (3.0-4.8); ALT/SGPT 22 U/L (7-56); AST/SGOT 29 U/L (17-59); BILIRUBIN,DIRECT 0.3 mg/dL (0.0-0.4); BLOOD UREA NITROGEN 11 mg/dL (7-21); CALCIUM 8.8 mg/dL (8.4-10.5); GFR AFRICAN-AMERICAN > 60; GFR NON-AFRICAN AMERICAN > 60
[2018-01-20 08:19] VITALS: BP 122/83; RESP 19; TEMP 98.6; O2SAT 94
[2018-01-20] MEDS: Morphine 30 mg SR Tab PO SCH (09:34)
[2018-01-20] MEDS: POLYETHYLENE GLYCOL 3350 17 GM/Dose PACKET PO SCH ×2 (09:37→13:42)
[2018-01-20] MEDS: Enoxaparin 40 mg Syringe SC SCH (09:38)
[2018-01-20 14:27] VITALS: PULSE 79
--- NOTE | 2018-01-20 21:29 | CON ---
DATE: 01/20/2018 HISTORY OF PRESENT ILLNESS: Patient is a 57-year-old male who is medically admitted for evaluation of altered mental status and witnessed seizures by his . Psychiatry followed up with patient yesterday for depression secondary to multiple stressors in his life. I reviewed Dr. Gould's note, which indicated that patient did admit to depression, nightmares, feelings of hopelessness and helplessness, insomnia, poor appetite. Patient denies having any thoughts of harming himself or others and although he at times continue hearing voices that are not there, he did not appear to be psychotic at all. Patient had indicated he was considering transfer to the psychiatric unit and this provider is following up with patient regarding his current functioning and symptoms. I met with the patient at bedside this morning and he remains alert and well oriented to circumstances and month and year and location. Patient has very good memory of Dr. Gould's visit yesterday and he is communicative, speak with this provider today. Patient reported that he is depressed about current stressors in his life; however, he is not hopeless and he does not have any wishes or suicidal thoughts. He is hopeful about the future, improving. He does not have any hallucinations and he presented as coherent and goal-directed and responses relevant as well as consistent with questions. Delusions were not elicited. Patient's sleep is a little bit affected he indicated that he deferred on taking Remeron as he does not want to take this medication as he is generally against anti-depressants due to fear of side effect. Patient feels like he could function fairly well without antidepressant at this time and he deferred on any further psychiatric management while he is in the hospital. Specifically, he refuses any inpatient hospitalizations or transitions that suspect. Patient does report that his had made an appointment to see a psychiatrist in [place] and the followup is supposed to schedule for next week. Patient that Remeron be discontinued. Insight and judgment are considered to be fair. VITAL SIGNS: Reviewed by this provider. LABORATORY DATA: Reviewed by this provider. RELEVANT PSYCHIATRIC MEDICATIONS: Only include Remeron 30 mg at bedtime which patient respectively requests to be discontinued as he does not want to take any psychiatric antidepressants. IMPRESSION: Rule out major depressive disorder, rule out posttraumatic stress disorder. Patient's presentation appears to be secondary to adjustment disorder with depression and anxiety. PLAN AND RECOMMENDATIONS: I will continue Remeron per patients' request. Patient appears to be stable, though depressed. He is showing good judgment and can communicate easily. He does not appear to be a danger to himself. Denies having any suicidal thoughts. He is not psychotic. He does not have any history of suicide attempt. Patient also reports intent to follow up with a psychiatric outpatient provider next week, indicates that his has setup an appointment for him to follow up with somebody in [place] next week. Psychiatry will sign off on this patient at this time. Please re-consult if there are any changes in patient's presentation. Sage Coleman MD
--- NOTE | 2018-01-21 07:57 | DS ---
HOSPITAL COURSE: The patient was declined to be admitted to Psychiatry, now being discharged to TCU. The patient's discharge could not be done yesterday because of the delay in evaluation period by the Psychiatry and non-acceptance and denial by the Psychiatry. PHYSICAL EXAMINATION: VITAL SIGNS: T-max 98.6, pulse 68 to 79, blood pressure 122/83, respirations 19, O2 sat is 94%, 95%, 96%. GENERAL: Patient was seen lying in the bed, complaining of reflux symptoms, which he said that is worse by lying down. The patient was advised to sit up in the chair and walk around and the patient was advised to avoid lying down after having breakfast, which would increase his reflux, but that does not want to be out of bed to chair. HEENT: Head: Normocephalic, atraumatic. HEENT: Shows pink conjunctivae. Anicteric sclerae. No oropharyngeal lesion. NECK: No neck rigidity. CHEST: Kyphosis. LUNGS: Shows no rales, crackles or wheezing. CARDIOVASCULAR: S1, S2. Regular rhythm. ABDOMEN: Soft. Positive bowel sound. GENITALIA: Male. RECTAL: Deferred. EXTREMITIES: Shows no pitting edema, no calf tenderness, no Velia's signs. NEUROLOGIC: Patient is alert, awake, oriented x3. Cranial nerves II though XII intact. Gait examination is not tested. Vascular examination, palpable pulses. Motor strength is 5/5. MUSCULOSKELETAL: Shows a body mass index of 23. DIAGNOSTICS: 01/20, WBC 7.5, hemoglobin/hematocrit 12.1 and 35.6, platelets 335. Granulocytes 70. PT 14. Sodium 146, potassium 3.5, chloride 101, CO2 31, anion gap 17, BUN 11, creatinine 0.6. GFR greater than 60. Glucose 100, calcium 8.8, magnesium 1.9. LFTs are normal. RPR is nonreactive. Urine cultures, no growth. Blood cultures, no growth. FINAL IMPRESSION, PLAN AND DISCHARGE DIAGNOSES: 1. Questionable seizure versus seizure-like activity versus syncope. 2. Possible drug, narcotics and withdrawal. 3. Chronic narcotic-dependent pain syndrome. 4. Hypertension. 5. Leukocytosis with granulocytosis. 6. Normocytic anemia. 7. Hypokalemia. 8. Prerenal kidney injury. 9. Ketonuria. 10. Microscopic hematuria. 11. Bacteriuria. 12. Bilateral 20%-39% proximal internal carotid artery stenosis. 13. Cerebral cortical atrophy of the brain. 14. Left periventricular white matter chronic lacunar infarct. 15. Borderline left ventricular systolic function with left ventricular ejection fraction of 51%. 16. Right bundle-branch block. 17. [id number] oropharyngeal dysphagia with moderate risk for aspiration due to oral motor weakness, low voice, slow oral transit, oral residue and intermittent fatigue and tremors. 16. Constipation. 17. Dyslipidemia. 18. Altered mental status. 19. Depression. 20. Anxiety. 21. Insomnia. 22. Mood spectrum disorder. 23. Possible major depressive disorder. 24. Possible posttraumatic stress disorder. 25. Right bundle branch block. PLAN: At this time, the patient has been cleared for discharge and transferred to TCU by Cardiology, Neurology, Psychiatry. CURRENT DISCHARGE MEDICATIONS: As follows: Ecotrin 81 mg daily, Colace 100 mg three times a day, Lipitor 40 mg daily, Lovenox 40 mg subcu daily, MiraLax 17 g 3 times a day, Morphine Sulfate extended release 90 mg every 12, oxycodone 30 mg every 8 p.r.n. The patient was given K-rider 20 mEq x2 today, Protonix 40 mg daily, Remeron 15 mg at bedtime p.r.n., Senokot 17.2 mg at bedtime. At present, the patient will be discharged on the above medication to be continued. The patient will be continued on Transitional Care Unit for physical therapy, occupational therapy, ambulation therapy. The patient will be ordered out of bed to chair. During this hospitalization, the patient was extensively explained about the details of his medical condition, diagnoses, test results. All details are explained to the patient at length and all questions concerned answered, which he acknowledged and understood in detail. Time spent in the entire discharge process more than 45 minutes. Dictated and electronically signed, not read. Luis San MD
--- NOTE | 2018-01-22 10:48 | CP.PCM.PCO ---
Physician Communication Note - Physician Communication Note Physician Communication Note: psychiatric team signed off
[2018-01-22 15:25] LABS: 23 KD (IGG) BAND Nonreactive
== END 2018-01-20 14:31 | DRG 101 ==
LOC: ED 16:32 → ERH 18:48 → 3RNO 21:08
PROVIDERS: ADMIT Internal Medicine; ATTEND Internal Medicine
DX: R56.9 Unspecified convulsions (principal); F11.20 Opioid dependence, uncomplicated; I13.0 Hypertensive heart and chronic kidney disease with heart failure and stage 1 through stage 4 chronic kidney disease, or unspecified chronic kidney disease; N39.0 Urinary tract infection, site not specified; D64.9 Anemia, unspecified; E78.00 Pure hypercholesterolemia, unspecified; E78.5 Hyperlipidemia, unspecified; E87.6 Hypokalemia; F17.200 Nicotine dependence, unspecified, uncomplicated; F32.89 Other specified depressive episodes; F41.9 Anxiety disorder, unspecified; G47.00 Insomnia, unspecified; G89.4 Chronic pain syndrome; H54.7 Unspecified visual loss; I50.9 Heart failure, unspecified; N18.9 Chronic kidney disease, unspecified; I45.10 Unspecified right bundle-branch block; I65.29 Occlusion and stenosis of unspecified carotid artery; J44.9 Chronic obstructive pulmonary disease, unspecified; K59.00 Constipation, unspecified; R13.12 Dysphagia, oropharyngeal phase; R31.29 Other microscopic hematuria; Z79.82 Long term (current) use of aspirin; Z81.8 Family history of other mental and behavioral disorders; Z82.3 Family history of stroke; Z86.711 Personal history of pulmonary embolism; Z86.718 Personal history of other venous thrombosis and embolism; Z87.442 Personal history of urinary calculi; Z90.81 Acquired absence of spleen; Z88.6 Allergy status to analgesic agent; G31.9 Degenerative disease of nervous system, unspecified; R00.1 Bradycardia, unspecified

== ENCOUNTER 2018-01-20 14:35 | Inpatient (IN) | payer OTHER ==
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
[2018-01-20 17:06] VITALS: BMI 24.7
[2018-01-20] MEDS: POLYETHYLENE GLYCOL 3350 17 GM/Dose PACKET PO SCH (17:23)
[2018-01-20] MEDS: oxyCODONE 30 mg Immediate Release Tab PO PRN (19:39)
[2018-01-20] MEDS: Morphine 30 mg SR Tab PO SCH (21:52)
[2018-01-21] MEDS: Enoxaparin 40 mg Syringe SC SCH (05:21)
[2018-01-21] MEDS: Pantoprazole 40 mg EC Tab PO SCH (05:21)
[2018-01-21] MEDS: oxyCODONE 30 mg Immediate Release Tab PO PRN ×2 (05:26→17:58)
[2018-01-21] MEDS: Potassium Chloride 20 mEq ER Tab PO SCH (08:05)
--- NOTE | 2018-01-21 08:55 | CP.PCM.PN ---
Subjective - Date & Time of Evaluation Date of Evaluation: 01/21/18 Time of Evaluation: 07:55 - Subjective Subjective: (covering for Dr. San) Patient is seen this morning in the transitional care unit room 314. He is lying in bed comfortable. He has no new complaints. Objective - Vital Signs/Intake and Output Vital Signs (last 24 hours): Temp Pulse Resp BP Pulse Ox 97.7 F 59 L 18 111/74 95 01/20/18 16:48 01/20/18 16:48 01/20/18 16:48 01/20/18 16:48 01/20/18 14:57 - Medications Medications: Current Medications Aspirin (Aspirin Chewable) 81 mg PO 0800 [facility] Last Admin: 01/21/18 08:05 Dose: 81 mg Atorvastatin Calcium (Lipitor) 40 mg PO DAILY [facility] Docusate Sodium (Colace) 100 mg PO TID [facility] Last Admin: 01/20/18 17:22 Dose: Not Given Enoxaparin Sodium (Lovenox) 40 mg SC 0600 [facility] PRN Reason: Protocol Last Admin: 01/21/18 05:21 Dose: 40 mg Mirtazapine (Remeron) 15 mg PO HS PRN PRN Reason: Anxiety Morphine Sulfate (Morphine Extended Release Tab) 90 mg PO Q12 [facility] Last Admin: 01/20/18 21:52 Dose: 90 mg Oxycodone HCl (Oxycodone Immediate Release Tab) 30 mg PO Q8 PRN PRN Reason: Pain, moderate (4-7) Last Admin: 01/21/18 05:26 Dose: 30 mg Pantoprazole Sodium (Protonix Ec Tab) 40 mg PO 0600 [facility] Last Admin: 01/21/18 05:21 Dose: 40 mg Polyethylene Glycol (Miralax) 17 gm PO TID [facility] Last Admin: 01/20/18 17:23 Dose: Not Given Potassium Chloride (K-Dur 20 Meq Er Tab) 20 meq PO 0800 [facility] Last Admin: 01/21/18 08:05 Dose: 20 meq Sennosides (Senokot Tab) 17.2 mg PO HS [facility] Last Admin: 01/20/18 21:53 Dose: 17.2 mg - Constitutional Appears: No Acute Distress - Head Exam Head Exam: ATRAUMATIC, NORMOCEPHALIC - Cardiovascular Exam Cardiovascular Exam: +S1, +S2 - GI/Abdominal Exam GI & Abdominal Exam: Soft, Normal Bowel Sounds. absent: Tenderness - Extremities Exam Extremities Exam: Normal Inspection - Neurological Exam Neurological Exam: Alert, Awake, Oriented x3 Assessment and Plan - Assessment and Plan (Free Text) Assessment: Seizure like activity vs. syncope History of DVT/PE COPD Osteoarthritis HTN Plan: Patient is seen this morning. He will continue physical therapy. He is on chronic pain medications. He will continue his maintenance medications.
[2018-01-21] MEDS: Morphine 30 mg SR Tab PO SCH ×2 (09:59→21:33)
[2018-01-21] MEDS: POLYETHYLENE GLYCOL 3350 17 GM/Dose PACKET PO SCH ×3 (10:01→17:55)
[2018-01-22] MEDS: Pantoprazole 40 mg EC Tab PO SCH (05:26)
[2018-01-22] MEDS: Enoxaparin 40 mg Syringe SC SCH (05:26)
[2018-01-22] MEDS: oxyCODONE 30 mg Immediate Release Tab PO PRN ×3 (05:31→22:24)
[2018-01-22 07:25] LABS: BASO # 0.01 K/mm3 (0.0-2.0); BASO % 0.1 % (0.0-3.0); EOS # 0.3 (0.0-0.7); GRAN # 7.27 (1.4-6.5); GRAN % 70.7 % (50.0-68.0); HEMOGLOBIN 11.4 g/dL (14.0-18.0); LYMPH # 1.9 (1.2-3.4); LYMPH % 18.1 % (22.0-35.0); MEAN CORPUSCULAR HEMOGLOBIN 29.8 pg (25.0-35.0); MEAN CORPUSCULAR HGB CONC 33.4 g/dl (31.0-37.0); MEAN PLATELET VOLUME 9.7 fl (7.0-11.0); MONO # 0.8 (0.1-0.6); MONO % 8.1 % (1.0-6.0); RBC 3.83 10^6/uL (3.5-6.1); RED CELL DISTRIBUTION WIDTH 13.2 % (11.5-14.5); WHITE BLOOD COUNT 10.3 10^3/ul (4.5-11.0)
[2018-01-22] MEDS: Potassium Chloride 20 mEq ER Tab PO SCH (07:58)
[2018-01-22 08:06] LABS: ALB/GLOB RATIO 1.3 (1.1-1.8); ALBUMIN 3.9 g/dL (3.0-4.8); ALT/SGPT 19 U/L (7-56); AST/SGOT 21 U/L (17-59); BLOOD UREA NITROGEN 17 mg/dL (7-21); CALCIUM 8.7 mg/dL (8.4-10.5); GFR AFRICAN-AMERICAN > 60; GFR NON-AFRICAN AMERICAN > 60
[2018-01-22] MEDS: POLYETHYLENE GLYCOL 3350 17 GM/Dose PACKET PO SCH ×3 (10:10→17:04)
[2018-01-22] MEDS: Morphine 30 mg SR Tab PO SCH ×2 (10:12→21:23)
[2018-01-22] MEDS: Magnesium Oxide 400 mg Tab UD PO SCH (10:54)
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
--- NOTE | 2018-01-22 15:40 | PN ---
DATE: 01/22/2018 SUBJECTIVE: The patient was seen in the gym room in room 314. The patient is doing stationary bike. The patient states that she is interested in going home today. I have advised the patient to contact the Hot Walker regarding her wishes. Overnight nurse's notes were reviewed. OBJECTIVE: GENERAL: The patient was found to be alert, awake, oriented x3. VITAL SIGNS: T-max is 98.6; heart rate 59, 75, 71; blood pressure 101/69, 115/75, 111/74; respirations 18, O2 sat 95-99%. HEENT: Head examination, normocephalic, atraumatic. HEENT examination shows pinkish conjunctivae. Anicteric sclerae. No oropharyngeal lesion. No neck rigidity. CHEST: Examination, kyphosis. LUNGS: Examination shows no rales, crackles or wheezing. CARDIOVASCULAR: Examination, S1, S2, regular rhythm. Questionable soft systolic murmur, left sternal border and right second intercostal space. ABDOMEN: Soft. Positive bowel sounds. No hepatosplenomegaly noted. GENITALIA: Male. RECTAL: Examination is deferred. EXTREMITIES: Show no pitting edema, no calf tenderness, no Homans' sign. NEUROLOGIC: The patient is alert, awake, oriented x3. Cranial nerves II-XII intact. Motor strength is 5/5 in the upper and lower extremities. Gait examination is not tested. At this time, the patient is performing stationary bike. PSYCHIATRIC: As per psychiatric evaluation. Body mass index is 25. DIAGNOSTICS: 01/22, WBC 10.3, hemoglobin and hematocrit 11.4, 34.1, platelets 364. Granulocytes 71% segs. Sodium 139, potassium 3.9, chloride 97, CO2 32, anion gap 14, BUN 17, creatinine 0.7, GFR greater than 60, glucose 103 and 96, calcium 8.7, magnesium is 1.7 which is low normal. LFTs are normal. Potassium is 3.9 which is also low normal. IMPRESSION AND PLAN: 1. Deconditioning. 2. Gait dysfunction. 3. Status post questionable seizure versus seizure-like activity. 4. Questionable possible syncope. 5. Chronic narcotic-dependent pain syndrome. 6. Status post leukocytosis. 7. History of pulmonary embolism. 8. History of deep venous thrombosis. 9. History of hypertension. 10. Noncompliance with anticoagulation. 11. Questionable and possible drug and narcotic withdrawal syndrome. 12. Avascular necrosis of the left lower extremity. 13. Asymptomatic bradycardia. 14. Normocytic anemia with mild granulocytosis. 15. Hypokalemia. 16. Prerenal kidney injury. 17. Ketonuria. 18. Microscopic hematuria. 19. Pyuria. 20. Bacteriuria. 21. Bilateral 20 39% proximal internal carotid artery stenosis. 22. Cerebral cortical atrophy of the brain. 23. Left periventricular white matter chronic lacunar infarct. 24. Left ventricular ejection fraction of 50% with borderline left ventricular systolic function. 25. Right bundle-branch block. 26. Constipation. 27. Hypercholesteremia. 28. Pyuria. 29. Mild to moderate oropharyngeal dysphagia with moderate risk for aspiration due to oral motor weakness, low voice, low oral transit, oral residue and intermittent fatigue and tremors (resolved). 30. Depression. 31. Insomnia. 32. Possible mood spectrum disorder versus major depressive disorder versus post-traumatic stress disorder. 33. Possible adjustment disorder with anxiety disorder. 34. Borderline hypokalemia and hypomagnesemia. 35. Constipation. 36. Dyslipidemia. PLAN: At this time, the patient is to be continued on Transitional Care Unit until approved number of days; unless the patient wishes to leave early, the patient is to be continued with Psychiatry followup. CURRENT MEDICATIONS: 1. Aspirin 81 mg p.o. daily. 2. Colace 100 mg three times a day. 3. K-Dur 20 mEq daily. 4. Lipitor 40 mg daily. 5. Lovenox 40 mg subcutaneous daily. 6. Magnesium oxide 400 mg daily. 7. MiraLax 17 g three times a day. 8. Morphine extended release 60 mg every 12 hours. which has been decreased by the medical biller/coder. 9. The patient is on oxycodone 30 mg every 8 hours p.r.n. 10. Protonix 40 mg daily. 11. Remeron 15 mg at bedtime p.r.n. 12. Senokot 17.2 mg at bedtime. 13. Xanax 0.5 mg t.i.d. p.r.n. for anxiety. Oxygen nasal cannula. Altered GI hepatic diet. Aspiration precaution, out of bed, SCDs, CLIFFORD stockings, occupational therapy, physical therapy, speech therapy. has been noted. The patient was seen by the speech therapist. The patient had appropriate swallowing function, previous deficiencies have resolved. Dictated and electronically signed, not read. Luis San MD
[2018-01-23] MEDS: Enoxaparin 40 mg Syringe SC SCH (06:08)
[2018-01-23] MEDS: Pantoprazole 40 mg EC Tab PO SCH (06:08)
[2018-01-23] MEDS: oxyCODONE 30 mg Immediate Release Tab PO PRN ×3 (06:17→21:32)
[2018-01-23] MEDS: Potassium Chloride 20 mEq ER Tab PO SCH (08:37)
[2018-01-23] MEDS: POLYETHYLENE GLYCOL 3350 17 GM/Dose PACKET PO SCH ×3 (09:53→17:44)
[2018-01-23] MEDS: Magnesium Oxide 400 mg Tab UD PO SCH (09:53)
[2018-01-23] MEDS: Morphine 30 mg SR Tab PO SCH ×2 (09:56→21:31)
--- NOTE | 2018-01-23 13:26 | PN ---
DATE: 01/23/2018 SUBJECTIVE: The patient is seen in room 314, bed 1. The patient is out of bed to chair. The patient himself is stating that he is feeling significantly better after having physical therapy and occupational therapy, ambulation therapy done on TCU. The patient states that he is feeling stronger, more determined, not depressed, less anxious and more energetic. REVIEW OF SYSTEMS: Thirteen system review was done. Pertinent positive and negative dictated above. PHYSICAL EXAMINATION: VITAL SIGNS: T-max 98.6, heart rate 71, blood pressure 101/69. Interestingly, the patient had no vital signs documented since 01/21/2018. HEENT: The patient's head examination normocephalic, atraumatic. HEENT examination shows pinkish conjunctivae. Anicteric sclerae. No oropharyngeal lesion. No neck rigidity. CHEST: Kyphosis. LUNGS: Examination shows no rales, crackles or wheezing. CARDIOVASCULAR: S1 and S2, regular rhythm. ABDOMEN: Soft. Positive bowel sound. GENITALIA: Male. RECTAL: Deferred. EXTREMITY: Shows no pitting edema, no calf numbness, no Homans' sign. NEUROLOGICAL: The patient is alert, awake and oriented x3. Cranial nerves II through XII intact. Gait examination is independent without any assisting devices. MUSCULOSKELETAL: Shows a body mass index 25. PSYCHIATRIC: The patient denies any suicidal or homicidal ideation. Denies any auditory or visual hallucination. Denies any anxiety, depression. DIAGNOSTICS: None from today. IMPRESSION AND PLAN: 1. Deconditioning. 2. Gait dysfunction. 3. Chronic narcotic-dependent pain syndrome. 4. Status post questionable seizure-like activity versus questionable syncope versus drug withdrawal. 5. Status post leukocytosis. 6. Right bundle-branch block. 7. Hypertension. 8. History of poor compliance. 9. Normocytic anemia with granulocytosis. 10. Hypokalemia. 11. Constipation. 12. Hyperlipidemia. 13. Hypomagnesemia. 14. Insomnia. 15. Anxiety disorder. Plan at this time the patient will be continued on Transitional Care Unit with daily physical therapy, occupational therapy, ambulation therapy, gait training. The patient's current medications are Ecotrin 81 mg daily, Colace 100 mg three times a day, K-Dur 20 mEq daily, Lipitor 40 mg daily, Lovenox 40 mg subcu daily, magnesium oxide 400 mg daily, MiraLax 17 g three times a day, morphine extended release 60 mg p.o. every 12, oxycodone 30 mg p.o. every 8 hours p.r.n., Protonix 40 mg daily, Remeron 15 mg at bedtime p.r.n., Senokot 17.2 mg at bedtime, Xanax 0.5 mg t.i.d. p.r.n., oxygen per liters nasal cannula. Altered GI hepatic diet. Aspiration precautions. Head of the bed at 30 degrees. SCDs, CLIFFORD stockings, out of bed to chair ordered. The patient will continue on physical therapy, occupational therapy, gait training. The patient is agreeing to complete the TCU approved duration. We are awaiting further recommendation from Psychiatry. Dictated and electronically signed, not read. Luis San MD
[2018-01-24] MEDS: Pantoprazole 40 mg EC Tab PO SCH (05:36)
[2018-01-24] MEDS: Enoxaparin 40 mg Syringe SC SCH (05:36)
[2018-01-24] MEDS: oxyCODONE 30 mg Immediate Release Tab PO PRN ×3 (06:34→22:02)
[2018-01-24] MEDS: Potassium Chloride 20 mEq ER Tab PO SCH (07:48)
[2018-01-24] MEDS: Morphine 30 mg SR Tab PO SCH ×2 (09:41→21:16)
[2018-01-24] MEDS: Magnesium Oxide 400 mg Tab UD PO SCH (09:42)
[2018-01-24] MEDS: POLYETHYLENE GLYCOL 3350 17 GM/Dose PACKET PO SCH ×3 (09:42→17:47)
--- NOTE | 2018-01-24 21:44 | PN ---
DATE: 01/24/2018 SUBJECTIVE: Patient was seen in the chamber room. Patient was doing exercises. Patient was later seen in room 314, bed 1. Patient is alert, awake, responsive. Initially, patient wanted to leave the Transitional Care Unit and wanted to sign out against medical advice. Patient was advised against signing out AMA. OBJECTIVE: VITAL SIGNS: T-max 98.4 to 98.6 to 99.4; pulse rate 75 to 81; blood pressure 115/83, 118/72; respirations 18; O2 sat 95%. HEENT: Head: Normocephalic, atraumatic. HEENT examination shows pinkish conjunctivae. Anicteric sclerae. No oropharyngeal lesion. NECK: No neck rigidity. CHEST: Kyphosis. LUNGS: Shows no rales, crackles, or wheezing. CARDIOVASCULAR: S1, S2, regular rhythm. Questionable soft systolic murmur, left sternal border, right second intercostal space. ABDOMEN: Soft. Positive bowel sounds. GENITALIA: Male. RECTAL: Deferred. EXTREMITY: Shows no pitting edema, no calf tenderness, no Homans' sign. NEUROLOGIC: Patient is alert, awake, oriented x3. Cranial nerves II through XII intact. Gait examination is independent. Patient is seen on the stationary bike. VASCULAR: Palpable pulses. PSYCHIATRIC: As per Psychiatry evaluation. DIAGNOSTIC DATA: None. IMPRESSION: 1. Deconditioning. 2. Gait dysfunction. 3. Poor compliance. 4. Normocytic anemia. 5. Granulocytosis. 6. Right bundle-branch block. 7. Chronic narcotic-dependent pain syndrome. 8. Hypokalemia. 9. Dyslipidemia. 10. Hypomagnesemia. 11. Narcotic-induced constipation. 12. Insomnia, depression, anxiety. PLAN: At this time, patient is started on aspirin 81 daily, Colace 100 three times a day, K-Dur 20 mEq daily, Lipitor 40 mg daily, Lovenox 40 mg subcu daily, magnesium oxide 400 mg daily, MiraLax 17 g three times a day, morphine extended release 60 mg every 12 hours, oxycodone 30 mg every eight p.r.n., Protonix 40 mg daily, Remeron 15 mg at bedtime p.r.n., Senokot 17.2 mg at bedtime, Xanax 0.5 mg t.i.d. p.r.n. Oxygen nasal cannula. CLIFFORD stockings. Out of bed. Seizure precaution. Occupational therapy, physical therapy, speech therapy ordered. Patient has been threatening to sign out against medical advice. Patient has been advised against signing out against medical advice, which he acknowledged to understand. Patient is contemplating about possible signing out AMA. Dictated and electronically signed, not read. Luis San MD
[2018-01-25] MEDS: Pantoprazole 40 mg EC Tab PO SCH ×2 (05:47→05:50)
[2018-01-25] MEDS: Enoxaparin 40 mg Syringe SC SCH (05:47)
[2018-01-25] MEDS: Potassium Chloride 20 mEq ER Tab PO SCH (08:13)
[2018-01-25] MEDS: Morphine 30 mg SR Tab PO SCH ×2 (09:20→21:52)
[2018-01-25] MEDS: Magnesium Oxide 400 mg Tab UD PO SCH (09:24)
[2018-01-25] MEDS: POLYETHYLENE GLYCOL 3350 17 GM/Dose PACKET PO SCH ×3 (09:25→17:28)
[2018-01-25] MEDS ORDERED: Morphine 30 mg SR Tab PO SCH (11:14)
[2018-01-25 11:27] VITALS: O2SAT 97
[2018-01-25] MEDS: oxyCODONE 30 mg Immediate Release Tab PO PRN ×3 (11:55→23:49)
[2018-01-26] MEDS: Pantoprazole 40 mg EC Tab PO SCH (05:17)
[2018-01-26] MEDS: Enoxaparin 40 mg Syringe SC SCH (05:17)
[2018-01-26] MEDS: Potassium Chloride 20 mEq ER Tab PO SCH (08:08)
--- NOTE | 2018-01-26 08:09 | PN ---
DATE: 01/25/2018 SUBJECTIVE: Patient is seen ambulating in the room, room 314, bed 1. Patient today appears to be more compliant and agreeable to stay and patient did not sign against medical advice yesterday. Patient is requesting to change his pain medication; requesting to have the morphine extended release decreased and increase the p.r.n. oxycodone. OBJECTIVE: VITAL SIGNS: T-max 98.4; pulse 74 to 81 to 79; blood pressure 119/83, 109/73; respirations 16; O2 sat 97%. HEENT: Head: Normocephalic, atraumatic. HEENT examination shows pink conjunctivae. Anicteric sclerae. No oropharyngeal lesion. NECK: No neck rigidity. CHEST: Kyphosis. LUNGS: Shows no rales, crackles, or wheezing. CARDIOVASCULAR: S1, S2, regular rhythm. ABDOMEN: Soft. Positive bowel sounds. GENITALIA: Male. RECTAL: Deferred. EXTREMITY: Shows no pitting edema, no calf tenderness, no Homans sign. NEUROLOGIC: Patient is alert, awake, responsive. Patient is able to ambulate without assistance. Motor strength is 5/5 in the upper and lower extremity. Cranial nerves II through XII intact. Gait examination is independent. VASCULAR: Palpable pulses. PSYCHIATRIC: As per Psychiatry evaluation. DIAGNOSTICS DATA: None. IMPRESSION: 1. Deconditioning. 2. Gait dysfunction. 3. Chronic narcotic-dependent pain syndrome. 4. Anxiety. 5. Depression. 6. Right bundle-branch block. 7. Insomnia. 8. Hypokalemia. 9. Mild normocytic anemia. 10. Transient granulocytosis. 11. Narcotic-induced constipation. 12. Dyslipidemia. 13. Hypomagnesemia. 14. Constipation. PLAN: At this time, patient is to be continued on Transitional Care Unit. Patient is to continue on physical therapy, occupational therapy, ambulation therapy, gait training. CURRENT MEDICATIONS: 1. Aspirin 81 mg p.o. daily. 2. Colace 100 mg three times a day. 3. K-Dur 20 mEq daily. 4. Lipitor 40 mg daily. 5. Lovenox 40 mg subcu daily. 6. Magnesium oxide 400 mg daily. 7. MiraLax 17 g three times a day. 8. Morphine extended release 30 mg every 12 hours. 9. Patient's oxycodone is changed to 30 mg p.o. every 6 hours p.r.n., hold for sedation. 10. Protonix 40 mg daily. 11. Remeron 15 mg at bedtime p.r.n. 12. Senokot 17.2 mg at bedtime. 13. Xanax 0.5 mg t.i.d. p.r.n. Patient will be continued on the above therapeutic intervention. As above, patient will continue on physical therapy, occupational therapy, ambulation therapy, gait training. Patient will continue on TCU till approved number of days, which patient is at present agreeable to. Dictated and electronically signed, not read. Luis San MD
[2018-01-26] MEDS: oxyCODONE 30 mg Immediate Release Tab PO PRN ×3 (08:14→23:40)
[2018-01-26] MEDS: POLYETHYLENE GLYCOL 3350 17 GM/Dose PACKET PO SCH ×3 (09:19→17:16)
[2018-01-26] MEDS: Morphine 30 mg SR Tab PO SCH ×2 (09:19→21:06)
[2018-01-26] MEDS: Magnesium Oxide 400 mg Tab UD PO SCH (09:20)
--- NOTE | 2018-01-26 14:51 | PN ---
DATE: 01/26/2018 SUBJECTIVE: Patient is seen in the physical therapy room doing stationary bike. Patient is alert, awake, responsive. Patient was evaluated also last night on TCU. Patient has been requesting and threatening. Patient has been requesting to be discharged or otherwise threatening to sign AMA, but today patient has a completely changed statement that the patient would like to stay and complete his TCU to stay until tomorrow and would like to be discharged tomorrow. REVIEW OF SYSTEMS: Patient's 13 system review was done. Patient denies any chest pain, denies shortness breath, denies nausea, denies vomiting, denies diarrhea, denies hemoptysis, denies melena. PHYSICAL EXAMINATION: VITAL SIGNS: T-max 98.4. Heart rate 74, 97, 81, 75; blood pressure 119/83, 109/73; respirations 16 to 18; O2 sat 97%. HEAD: Normocephalic, atraumatic. HEENT: Shows pinkish conjunctivae, anicteric sclerae. No oropharyngeal lesion. NECK: No neck rigidity. CHEST: Kyphosis. LUNGS: Show no rales, crackles, or wheezing. CARDIOVASCULAR: S1 and S2, regular rhythm. Questionable soft systolic murmur at the left sternal border, right second intercostal space, and left second intercostal space. ABDOMEN: Soft. Positive bowel sound. GENITALIA: Male. RECTAL: Deferred. EXTREMITIES: Show no pitting edema, no calf tenderness, no Velia signs. Patient's motor strength appears to be 5/5 in upper and lower extremities as patient is doing stationary bike without any assistance. PSYCHIATRIC: As per Psychiatry evaluation. DIAGNOSTICS: None. MICROBIOLOGY SECTION: None. IMPRESSION: 1. Deconditioning. 2. Gait dysfunction. 3. Chronic narcotic-dependent pain syndrome. 4. Generalized anxiety disorder. 5. Questionable seizure-like activity versus questionable syncope. 6. Possible and questionable drug and narcotic withdrawal symptoms. 7. History of avascular necrosis of the lower extremity. 8. Asymptomatic bradycardia. 9. Hypertension. 10. Right bundle-branch block. 11. Mild normocytic anemia. 12. Granulocytosis. 13. Constipation. 14. Hypokalemia. 15. Hyperlipidemia. 16. Hypomagnesemia. 17. Anxiety and depression and insomnia. PLAN: At this time, patient is to be continued on Transitional Care Unit. Patient is to be continued on the above therapeutic intervention. Patient is currently being seen by Psychiatry. CURRENT MEDICATIONS: 1. Ecotrin 81 mg daily. 2. Colace 100 mg three times a day. 3. K-Dur 20 mEq daily. 4. Lipitor 40 mg daily. 5. Lovenox 40 mg subcu daily. 6. Magnesium oxide 400 mg daily. 7. MiraLax 17 g three times a day. 8. Morphine extended release 30 mg every 12 hours. 9. Oxycodone 30 mg every 6 hours p.r.n., hold for sedation. 10. Protonix 40 mg daily. 11. Remeron 15 mg at bedtime p.r.n. 12. Senokot 17.2 mg at bedtime. 13. Xanax 0.5 mg three times a day p.r.n. Patient is on altered GI hepatic diet, out of bed, CLIFFORD stockings, physical therapy, occupational therapy. At present, plan at this time, patient is to be continued on TCU for continuation of the physical therapy, occupational therapy, ambulation therapy, gait training. Patient has been updated about his condition, diagnosis, treatment plan at length, which he acknowledged and understands. Dictated and electronically signed, not read. Luis San MD
[2018-01-26 17:40] VITALS: BP 108/69; PULSE 68; RESP 18; TEMP 98.1
[2018-01-27] MEDS: Enoxaparin 40 mg Syringe SC SCH (05:24)
[2018-01-27] MEDS: Pantoprazole 40 mg EC Tab PO SCH (05:24)
[2018-01-27] MEDS: Potassium Chloride 20 mEq ER Tab PO SCH (08:04)
[2018-01-27] MEDS: oxyCODONE 30 mg Immediate Release Tab PO PRN ×2 (08:07→13:42)
[2018-01-27] MEDS: Magnesium Oxide 400 mg Tab UD PO SCH (10:06)
[2018-01-27] MEDS: Morphine 30 mg SR Tab PO SCH (10:06)
[2018-01-27] MEDS: POLYETHYLENE GLYCOL 3350 17 GM/Dose PACKET PO SCH ×2 (10:06→13:48)
--- NOTE | 2018-01-28 04:15 | DS ---
FINAL PROGRESS NOTE AND DISCHARGE SUMMARY HOSPITAL COURSE: The patient was seen, lying in the bed, in room 314, bed 1. Overnight nurse's notes were reviewed. The patient stayed without any adverse event, complained of chronic pain for which the patient was medicated. REVIEW OF SYSTEMS: A 13-system review was done, pertinent positive and negative dictated above. PHYSICAL EXAMINATION: VITAL SIGNS: T-max 98.1, pulse 68, blood pressure 108/69, respirations 18, O2 sat 97%. HEENT: Head examination, normocephalic and atraumatic. HEENT examination shows pinkish conjunctivae. Anicteric sclerae. No oropharyngeal lesion. NECK: No neck rigidity. CHEST: Kyphosis. LUNGS: Examination shows no rales, crackles or wheezing. CARDIOVASCULAR: S1 and S2, regular rhythm. Questionable soft systolic murmur at left sternal border, right second intercostal space. ABDOMEN: Soft. Positive bowel sound. GENITALIA: Male. RECTAL: Deferred. EXTREMITIES: Show no pitting edema, no calf tenderness, no Homans sign. MUSCULOSKELETAL: Shows a body mass index of 25. Cranial nerves II through XII limited. Gait examination is independent without assistive device. PSYCHIATRIC: Examination is positive for anxiety as per Psychiatry evaluation. DIAGNOSTIC DATA: None from today. LABORATORY DATA: Microbiology, negative. Blood bank, negative. FINAL IMPRESSION, PLAN AND DISCHARGE DIAGNOSES: 1. Deconditioning. 2. Gait dysfunction. 3. Questionable seizure-like activity versus questionable syncope versus questionable narcotic withdrawal syndrome. 4. Chronic narcotic-dependent pain syndrome. 5. History of pulmonary embolism and deep vein thrombosis with noncompliance with anticoagulation. 6. Hypokalemia. 7. Hyperlipidemia. 8. Questionable and possible drug and narcotic withdrawal syndrome. 9. Avascular necrosis of the left lower extremity. 10. Asymptomatic bradycardia. 11. History of hypertension. 12. Leukocytosis with granulocytosis. 13. Normocytic anemia. 14. Mild prerenal kidney injury. 15. Ketonuria. 16. Microscopic hematuria. 17. Pyuria. 18. Bacteriuria. 19. Bilateral 20%-39% proximal internal carotid artery stenosis. 20. Cerebral cortical atrophy of the brain. 21. Left periventricular white matter chronic lacunar infarct. 22. Left ventricular ejection fraction of 50%. 23. Borderline left ventricular systolic function of 50%. 24. Right bundle-branch block. 25. Narcotic-induced constipation. 26. Hypercholesterolemia. 27. History of poor compliance. 28. Hypomagnesemia. 29. Avnl-vv-nrdwaype oropharyngeal dysphagia with moderate risk for aspiration due to oral motor weakness, low voice, slow oral transit, oral residue and intermittent fatigue and tremors (resolved). 30. Depression. 31. Anxiety. 32. Insomnia. 33. Mood spectrum disorder. 34. Possible major depressive disorder versus possible post-traumatic stress disorder. Plan at this time, the patient has been cleared by all subspecialties for discharge. Patient will be discharged home. The patient's discharge followup with pain management physician within 1 week. Follow up with Dr. San within 1 week. Follow up with Dr. David Zhao for scheduled cardiac stress test on 01/31/2018. The patient has been discharged home. DISCHARGE MEDICATIONS: 1. Tylenol 650 mg every 6 hours p.r.n. 2. DuoNeb nebulizer four times a day. 3. Ecotrin 81 mg daily. 4. Lipitor 40 mg daily. 5. Colace 100 mg three times a day. 6. Drisdol 50,000 units weekly. 7. Magnesium oxide 400 mg daily. 8. Remeron 15 mg at bedtime p.r.n. 9. Morphine extended release 30 mg every 12 hours, which the patient already has at home which he will resume. 10. Oxycodone immediate release 30 mg four times daily p.r.n., which the patient already has at home. 11. Protonix 40 mg daily. 12. MiraLax 17 g three times a day. 13. Senokot 17.2 mg at bedtime. During this hospitalization, the patient was extensively explained about his diagnoses, test results, recommendation by all the physician involved in the care of the patient on almost daily basis and the patient was reinforced about above. The patient was also reinforced and educated about control of his narcotic use, with close pain management followup. The patient is advised to follow up with Dr. Zhao on 01/31/2018 for a stress test. Time spent in the entire discharge process more than 45 minutes. Dictated and electronically signed, not read. Luis San MD [facility] # [id number]
== END 2018-01-27 15:26 | disposition home or self-care (01) | DRG 92 ==
LOC: TRCU 14:35
PROVIDERS: ADMIT Internal Medicine; ATTEND Internal Medicine
PROC: F07Z9FZ Gait Training/Functional Ambulation Treatment using Assistive, Adaptive, Supportive or Protective Equipment (ICD-10-PCS; principal; 2018-01-21)
PROC: F07L6YZ Therapeutic Exercise Treatment of Musculoskeletal System - Lower Back / Lower Extremity using Other Equipment (ICD-10-PCS; 2018-01-22)
PROC: F08Z0FZ Bathing/Showering Techniques Treatment using Assistive, Adaptive, Supportive or Protective Equipment (ICD-10-PCS; 2018-01-22)
PROC: F08Z2FZ Grooming/Personal Hygiene Treatment using Assistive, Adaptive, Supportive or Protective Equipment (ICD-10-PCS; 2018-01-22)
DX: R26.81 Unsteadiness on feet (principal); I13.0 Hypertensive heart and chronic kidney disease with heart failure and stage 1 through stage 4 chronic kidney disease, or unspecified chronic kidney disease; I50.9 Heart failure, unspecified; N18.9 Chronic kidney disease, unspecified; G89.4 Chronic pain syndrome; F41.1 Generalized anxiety disorder; R56.9 Unspecified convulsions; I45.10 Unspecified right bundle-branch block; F32.9 Major depressive disorder, single episode, unspecified; E78.00 Pure hypercholesterolemia, unspecified; J44.9 Chronic obstructive pulmonary disease, unspecified; M19.90 Unspecified osteoarthritis, unspecified site; I65.23 Occlusion and stenosis of bilateral carotid arteries; M48.00 Spinal stenosis, site unspecified; D64.9 Anemia, unspecified; R00.1 Bradycardia, unspecified; E78.5 Hyperlipidemia, unspecified; G47.00 Insomnia, unspecified; K59.03 Drug induced constipation; T40.605A Adverse effect of unspecified narcotics, initial encounter; E87.6 Hypokalemia; E83.42 Hypomagnesemia; R13.12 Dysphagia, oropharyngeal phase; G31.9 Degenerative disease of nervous system, unspecified; Z79.01 Long term (current) use of anticoagulants; Z91.14 Patient's other noncompliance with medication regimen; Z86.718 Personal history of other venous thrombosis and embolism; Z86.711 Personal history of pulmonary embolism

== ENCOUNTER 2018-02-27 06:29 | Day surgery (SDC) | payer MEDICARE ==
[2018-02-23 06:36] VITALS: BMI 27.3
[2018-02-27] MEDS ORDERED: Lidocaine 2% Inj (20ml) ONE (06:52)
[2018-02-27] MEDS ORDERED: Nitroglycerin 50mg in D5W 0 MG/0 ML BOTTLE IV ONE (06:53)
[2018-02-27] MEDS ORDERED: Iodixanol 320 MG/ML 200 ML BOTTLE IV ONE (06:53)
[2018-02-27] MEDS ORDERED: Iodixanol 320 MG/ML 100 ML BOTTLE IV ONE (06:53)
[2018-02-27] MEDS ORDERED: Iohexol 350mgl/ml 50 ML ONE (06:53)
[2018-02-27] MEDS ORDERED: Phenylephrine 10 mg/ml Inj ONE (06:53)
[2018-02-27 07:04] LABS: BASO # 0.05 K/mm3 (0.0-2.0); BASO % 0.6 % (0.0-3.0); EOS # 0.4 (0.0-0.7); EOS % 4.4 % (1.5-5.0); GRAN # 4.71 (1.4-6.5); GRAN % 54.7 % (50.0-68.0); HEMOGLOBIN 11.6 g/dL (14.0-18.0); LYMPH # 2.9 (1.2-3.4); LYMPH % 33.9 % (22.0-35.0); MEAN CELL VOLUME 89.7 fl (80.0-105.0); MEAN CORPUSCULAR HEMOGLOBIN 29.7 pg (25.0-35.0); MEAN CORPUSCULAR HGB CONC 33.1 g/dl (31.0-37.0); MEAN PLATELET VOLUME 9.6 fl (7.0-11.0); MONO # 0.6 (0.1-0.6); MONO % 6.4 % (1.0-6.0); RBC 3.9 10^6/uL (3.5-6.1); WHITE BLOOD COUNT 8.6 10^3/ul (4.5-11.0)
[2018-02-27 07:09] LABS: BLOOD UREA NITROGEN 17 mg/dL (7-21); CALCIUM 8.4 mg/dL (8.4-10.5); GFR NON-AFRICAN AMERICAN > 60; HDL CHOLESTEROL 58 mg/dL (29-60)
[2018-02-27 07:15] LABS: INR 1.04 (0.93-1.08); PARTIAL THROMBOPLASTIN TIME 32.2 Seconds (25.1-36.5)
[2018-02-27 07:28] LABS: LDL CHOLESTEROL < 30 mg/dL (0-129)
[2018-02-27 07:50] VITALS: RESP 18
[2018-02-27] MEDS ORDERED: Midazolam 2 MG/2 ML VIAL ONE ×2 (07:51→08:03)
[2018-02-27 08:45] VITALS: TEMP 97.7
[2018-02-27] MEDS ORDERED: Sodium Chloride 0.9% 1,000 ML IV SCH (08:45)
--- NOTE | 2018-02-27 09:15 | CARDCATH ---
PROCEDURE DATE: 02/27/2018 HISTORY: The patient is a 57-year-old male who presented to the hospital with confusion. He is status post pulmonary embolism in the past. He suffers from hypercholesterolemia and had an abnormal EKG. Stress test revealed a depressed ejection fraction with with a small area of ischemia and a cardiac catheterization was recommended for his cardiomyopathy. PROCEDURE: Left heart catheterization with coronary arteriography and left ventriculogram. The right femoral artery was cannulated with a 6-Indonesian sheath. There were no complications. I performed moderate sedation, which included the presence of an independent trained observer that assisted in monitoring the patient's level of consciousness and physiologic status. After administration of Versed and fentanyl, my intra service time was 15 minutes. Findings on catheterization revealed a left ventricle that was low normal EF. EF was approximately 50%. The patient had a right dominant circulation. The RCA was free of significant disease. The left main artery was unremarkable. The LAD and diagonal vessels revealed mild intimal irregularities without critical lesions. The circumflex artery and obtuse marginal branches were free of significant disease. Angio-Seal was used to close the femoral artery site. The patient tolerated the procedure well. In summary, the procedure revealed low normal LV function. His coronary arteries were unremarkable. Given these findings, I have discussed the results with the patient. A report was sent to the primary care doctor. I have discussed with him about cardiac risk reduction program. David Zhao MD
[2018-02-27 12:09] VITALS: O2SAT 97
[2018-02-27 15:10] VITALS: BP 129/78; PULSE 51
--- NOTE | 2018-02-27 22:56 | CARD ---
APPROVED REPORT EKG Measurement Heart [id number] MS [id number] <Conclusion> Sinus bradycardia with occasional premature ventricular complexes Right bundle branch block Abnormal ECG
== END 2018-02-27 15:15 | disposition home or self-care (01) ==
LOC: CATH 06:29
PROVIDERS: ATTEND Internal Medicine Cardiovascular Disease
DX: I20.0 Unstable angina (principal); I10 Essential (primary) hypertension; E78.00 Pure hypercholesterolemia, unspecified; I45.10 Unspecified right bundle-branch block; F32.9 Major depressive disorder, single episode, unspecified; R41.0 Disorientation, unspecified; Z86.711 Personal history of pulmonary embolism
CPT/HCPCS: 36415; 80048; 80061; 85025; 85610; 85730; 86850; 86900; 93005; 93458; 99152; C1760; C1769; C2629; J1644; J2250; J3010; J7030 ×2; Q9966

== ENCOUNTER 2018-09-25 19:01 | Inpatient (IN) | payer MEDICARE, OTHER ==
[2018-09-25 19:04] VITALS: BMI 26.6
[2018-09-25 19:15] LABS: BASO # 0.02 K/mm3 (0.0-2.0); BASO % 0.2 % (0.0-3.0); GRAN # 9.65 (1.4-6.5); GRAN % 78.6 % (50.0-68.0); HEMOGLOBIN 13.7 g/dL (14.0-18.0); LYMPH % 16.5 % (22.0-35.0); MEAN CELL VOLUME 91.4 fl (80.0-105.0); MEAN CORPUSCULAR HEMOGLOBIN 30.2 pg (25.0-35.0); MEAN CORPUSCULAR HGB CONC 33.1 g/dl (31.0-37.0); MEAN PLATELET VOLUME 9.5 fl (7.0-11.0); MONO # 0.6 (0.1-0.6); MONO % 4.7 % (1.0-6.0); RBC 4.53 10^6/uL (3.5-6.1); RED CELL DISTRIBUTION WIDTH 13.9 % (11.5-14.5); WHITE BLOOD COUNT 12.3 10^3/uL (4.5-11.0)
[2018-09-25 19:24] LABS: ALB/GLOB RATIO 1.2 (1.1-1.8); ALBUMIN 5.3 g/dL (3.0-4.8); ALT/SGPT 13 U/L (7-56); BLOOD UREA NITROGEN 19 mg/dL (7-21); CALCIUM 10.1 mg/dL (8.4-10.5); GFR NON-AFRICAN AMERICAN > 60
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
[2018-09-25 19:27] LABS: INR 1.25; PARTIAL THROMBOPLASTIN TIME 34.4 Seconds (26.9-38.3); PROTHROMBIN TIME 13.9 SECONDS (9.4-12.5)
[2018-09-25 19:35] LABS: TROPONIN I < 0.01 ng/mL
[2018-09-25 19:37] LABS: AST/SGOT 51 U/L (17-59)
[2018-09-25] MEDS ORDERED: Iohexol 350 MG/100 ML VIAL ONE (21:43)
[2018-09-25] MEDS ORDERED: DiphenhydrAMINE 50 mg/ml Inj IVP STA (21:50)
[2018-09-25] MEDS ORDERED: Lactated Ringer's 1,000 ML IV SCH (22:15)
[2018-09-25 22:29] LABS: URINE BILIRUBIN NEGATIVE (NEGATIVE); URINE BLOOD MODERATE (NEGATIVE); URINE GLUCOSE (UA) NEGATIVE (NEGATIVE); URINE LEUKOCYTE ESTERASE NEGATIVE Leu/uL (NEGATIVE); URINE PROTEIN 100 mg/dL (<30 mg/dL); URINE UROBILINOGEN 0.2 E.U./dL (<1 E.U./dL)
[2018-09-25 22:34] LABS: URINE APPEARANCE SLIGHT-CLOUDY (CLEAR); URINE COLOR YELLOW (YELLOW); URINE RBC 20 - 25 /hpf (0-2)
[2018-09-25 22:35] LABS: URINE AMORPHOUS SEDIMENT TRACE /hpf; URINE BACTERIA TRACE /hpf
[2018-09-25 22:51] LABS: PHENCYCLIDINE, UR NEGATIVE (NEGATIVE)
[2018-09-25 23:03] LABS: BARBITURATES, UR NEGATIVE (NEGATIVE); BENZODIAZEPINES, UR POSITIVE (NEGATIVE); OPIATES, UR POSITIVE (NEGATIVE)
[2018-09-25 23:33] LABS: FREE T4 1.16 ng/dL (0.78-2.19); T4 9.4 ug/dL (5.5-11.0)
[2018-09-25] MEDS: POLYETHYLENE GLYCOL 3350 17 GM/Dose PACKET PO SCH (23:34)
[2018-09-26] MEDS ORDERED: cefTRIAXone 1 GM/100 ML BAG IVPB STA (01:00)
[2018-09-26] MEDS ORDERED: cefTRIAXone 1 gm 1 GM/100 ML BAG IVPB ONE (01:16)
[2018-09-26] MEDS ORDERED: Azithromycin 500MG/NS 250ml 500 MG/250 ML BAG IVPB ONE (02:46)
[2018-09-26] MEDS ORDERED: Azithromycin 500MG/NS 250ml 500 MG/250 ML BAG IVPB SCH (06:00)
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
[2018-09-26] MEDS: Pantoprazole 40 mg EC Tab PO SCH (06:47)
[2018-09-26 06:54] LABS: ARTERIAL BLOOD GAS O2 SAT 96.7 % (95-98); ARTERIAL BLOOD GAS PCO2 33 mm/Hg (35-45); ARTERIAL BLOOD GAS PH 7.47 (7.35-7.45)
[2018-09-26 07:10] LABS: VENOUS BLOOD GAS BASE EXCESS 1.9 mmol/L (0.0-2.0); VENOUS BLOOD GAS PO2 36 mm/Hg (30-55); VENOUS BLOOD PH 7.33 (7.32-7.43)
[2018-09-26 07:12] LABS: BASO # 0.01 K/mm3 (0.0-2.0); BASO % 0.1 % (0.0-3.0); GRAN # 9.14 (1.4-6.5); HEMOGLOBIN 12.1 g/dL (14.0-18.0); LYMPH # 1.2 (1.2-3.4); LYMPH % 10.8 % (22.0-35.0); MEAN CELL VOLUME 90.5 fl (80.0-105.0); MEAN CORPUSCULAR HEMOGLOBIN 29.4 pg (25.0-35.0); MEAN CORPUSCULAR HGB CONC 32.4 g/dl (31.0-37.0); MEAN PLATELET VOLUME 9.3 fl (7.0-11.0); MONO # 0.6 (0.1-0.6); MONO % 5.1 % (1.0-6.0); RBC 4.12 10^6/uL (3.5-6.1); RED CELL DISTRIBUTION WIDTH 13.9 % (11.5-14.5); WHITE BLOOD COUNT 10.9 10^3/uL (4.5-11.0)
[2018-09-26 07:22] LABS: TROPONIN I 0.02 ng/mL
[2018-09-26 07:29] LABS: TROPONIN I 0.03 ng/mL
--- NOTE | 2018-09-26 07:55 | CT ---
Date of service: 09/25/2018 PROCEDURE: CT HEAD WITHOUT CONTRAST. HISTORY: altered mental status COMPARISON: 01/17/2018 CT head TECHNIQUE: Axial computed tomography images were obtained through the head/brain without intravenous contrast. Radiation dose: Total exam DLP = 2056.98 mGy-cm. This CT exam was performed using one or more of the following dose reduction techniques: Automated exposure control, adjustment of the mA and/or kV according to patient size, and/or use of iterative reconstruction technique. FINDINGS: Exam markedly limited due to excessive patient motion associated artifact HEMORRHAGE: No intracranial hemorrhage. BRAIN: No mass effect or edema. Generalized atrophy is nevertheless suspect. Evaluation for chronic microvascular ischemic changes limited. VENTRICLES: Unremarkable. No hydrocephalus. CALVARIUM: Unremarkable. PARANASAL SINUSES: Unremarkable as visualized. No significant inflammatory changes. MASTOID AIR CELLS: Unremarkable as visualized. No inflammatory changes. OTHER FINDINGS: None. IMPRESSION: Markedly limited exam because of motion related artifact . No intracranial gross hemorrhage seen. Clinical follow-up as deemed appropriate.
[2018-09-26 07:57] LABS: ALB/GLOB RATIO 1.2 (1.1-1.8); ALBUMIN 4.6 g/dL (3.0-4.8); ALT/SGPT 24 U/L (7-56); AST/SGOT 34 U/L (17-59); BILIRUBIN,DIRECT 0.1 mg/dL (0.0-0.4); BLOOD UREA NITROGEN 19 mg/dL (7-21); CALCIUM 9.2 mg/dL (8.4-10.5); GFR NON-AFRICAN AMERICAN > 60
[2018-09-26] MEDS ORDERED: Levalbuterol 0.63 MG/3 ML Inhal Soln UD IH SCH (08:00)
--- NOTE | 2018-09-26 08:28 | RAD ---
Date of service: 09/25/2018 HISTORY: ams COMPARISON: 01/17/2018 FINDINGS: LUNGS: No active pulmonary disease. The extreme left costophrenic angle is not visually included on the exam. Mild scarring with or without bronchiectasis in each upper lobe left greater than right [id number]. PLEURA: No significant pleural effusion identified, no pneumothorax apparent. CARDIOVASCULAR: No aortic atherosclerotic calcification present. Minimal cardiomegaly No significant appearing pulmonary venous congestion. OSSEOUS STRUCTURES: No significant abnormalities. VISUALIZED UPPER ABDOMEN: Normal. OTHER FINDINGS: None. IMPRESSION: No interval pathology noted. Other findings as above.
--- NOTE | 2018-09-26 09:45 | US ---
PROCEDURE: Bilateral duplex carotid ultrasound HISTORY: Carotid stenosis PHYSICIAN(S): David Patel MD. TECHNIQUE: Duplex sonography and color-flow Doppler were used to evaluate the carotid bifurcations and limited segments of the vertebral arteries bilaterally. FINDINGS: There is mild smooth heterogeneous plaque noted at the carotid bifurcations bilaterally. The peak systolic velocity in the proximal right internal carotid artery is 59 cm/sec. This corresponds to a 20 to 39% proximal right ICA stenosis. Normal systolic velocities are noted in the proximal right external carotid artery. There is antegrade flow in the right vertebral artery. The peak systolic velocity in the proximal left internal carotid artery is 65 cm/sec. This corresponds to a 20 to 39% proximal left ICA stenosis. Normal systolic velocities are noted in the proximal left external carotid artery. There is antegrade flow in the left vertebral artery. IMPRESSION: 1. Bilateral 20-39% proximal ICA stenoses. 2. Antegrade flow in both vertebral arteries.
--- NOTE | 2018-09-26 09:48 | CT ---
Date of service: 09/26/2018 PROCEDURE: CT Chest without contrast HISTORY: PNEUMONIA COMPARISON: CT chest 08/01/2016 TECHNIQUE: Contiguous axial images were obtained through the chest without intravenous contrast enhancement. Sagittal and coronal reconstructions were performed. Radiation dose: Total exam DLP = 438.67 mGy-cm. This CT exam was performed using one or more of the following dose reduction techniques: Automated exposure control, adjustment of the mA and/or kV according to patient size, and/or use of iterative reconstruction technique. FINDINGS: LUNGS: There is some linear consolidation of both lung bases which most likely represents atelectasis. The lungs are otherwise clear. MEDIASTINUM: Unremarkable thoracic aorta. No aneurysm. Normal sized heart. Main pulmonary artery unremarkable. No vascular congestion. No lymphadenopathy. No aortic atherosclerotic calcification. PLEURA: No pleural fluid. No pneumothorax. BONES: Severe compression fractures are seen in the upper thoracic spine. The age of these fractures is uncertain. These were not present on the previous chest CT from 2015 UPPER ABDOMEN: Grossly unremarkable. OTHER FINDINGS: None. IMPRESSION: Severe compression fractures are seen in the upper thoracic spine. The age of these fractures is uncertain. These were not present on the previous chest CT from 2015 There is some linear consolidation of both lung bases which most likely represents atelectasis. The lungs are otherwise clear.
--- NOTE | 2018-09-26 09:53 | CT ---
Date of service: 09/25/2018 PROCEDURE: CT Abdomen and Pelvis with contrast HISTORY: abdominal tenderness COMPARISON: None. TECHNIQUE: Contrast dose: 100 cc of Omni 350 Radiation dose: Total exam DLP = 777.86 mGy-cm. This CT exam was performed using one or more of the following dose reduction techniques: Automated exposure control, adjustment of the mA and/or kV according to patient size, and/or use of iterative reconstruction technique. FINDINGS: LOWER THORAX: There is some linear consolidation of both lung bases most likely representing atelectasis. Pneumonia cannot be excluded LIVER: Unremarkable. No gross lesion or ductal dilatation. GALLBLADDER AND BILE DUCTS: Unremarkable. PANCREAS: Unremarkable. No gross lesion or ductal dilatation. SPLEEN: Unremarkable. ADRENALS: Unremarkable. No mass. KIDNEYS AND URETERS: Unremarkable. No hydronephrosis. No solid mass. VASCULATURE: Unremarkable. No aortic aneurysm. No aortic atherosclerotic calcification or mural plaque present. BOWEL: Unremarkable. No obstruction. No gross mural thickening. APPENDIX: Normal appendix. PERITONEUM: Unremarkable. No free fluid. No free air. LYMPH NODES: Unremarkable. No enlarged lymph nodes. BLADDER: Nondistended bladder. Mural thickening REPRODUCTIVE: Unremarkable. BONES: Compression fractures are seen at L1 and L3, age uncertain fusion of left hip joint OTHER FINDINGS: The report concurs with the preliminary [facility] report IMPRESSION: No acute intra-abdominal findings.
[2018-09-26] MEDS ORDERED: Magnesium Oxide 400 mg Tab UD PO SCH (10:00)
[2018-09-26] MEDS ORDERED: Morphine 2 mg/ml ISec IVP PRN (10:12)
--- NOTE | 2018-09-26 10:30 | CP.PCM.PCO ---
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
[2018-09-26] MEDS: POLYETHYLENE GLYCOL 3350 17 GM/Dose PACKET PO SCH ×2 (10:40→18:09)
[2018-09-26] MEDS: Insulin Lispro (humaLOG) MEDIUM Coverage SC SCH ×3 (10:41→18:06)
[2018-09-26] MEDS: cefTRIAXone 2 GM IN NS 2 GM/100 ML BAG IVPB SCH (10:42)
[2018-09-26 11:37] LABS: TROPONIN I 0.02 ng/mL
--- NOTE | 2018-09-26 12:04 | CARD ---
APPROVED REPORT Date of service: 09/25/2018 EKG Measurement Heart [id number] <Conclusion> Sinus tachycardia Right bundle branch block Inferior infarct, age undetermined Abnormal ECG
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
[2018-09-26] MEDS: Lidocaine 5% Patch TD SCH (12:43)
[2018-09-26] MEDS: Acetylcysteine 20% Inhal Soln (4ml) IH SCH ×2 (13:03→21:02)
[2018-09-26] MEDS: Levalbuterol 0.63 MG/3 ML Inhal Soln UD IH SCH ×2 (13:03→21:02)
--- NOTE | 2018-09-26 13:17 | PN ---
DATE: 09/26/2018 SUBJECTIVE: The patient is the patient is in room 276, bed one. The patient was admitted yesterday from the emergency room. Overnight nurse's notes were reviewed. No presenting complaints of the patient has not recurred. OBJECTIVE: VITAL SIGNS: T-max is afebrile. Telemetry shows sinus rhythm, heart rate is 74, blood pressure 137/81, respirations 18, O2 sat 95%. Head: Normocephalic, atraumatic. HEENT examination shows pinkish conjunctivae, anicteric sclerae. No oropharyngeal lesion. NECK: No neck rigidity. Dry oral mucosa. Questionable soft carotid bruit. CHEST: Kyphosis. LUNGS: Shows positive rhonchi bilaterally, right more than the left. CARDIOVASCULAR: S1, S2, regular rhythm. Questionable soft systolic murmur left sternal border, right second intercostal space, left second intercostal space. ABDOMEN: Soft. Positive bowel sound. No palpable hepatosplenomegaly at this time. No guarding. No rigidity. No rebound tenderness at this time. GENITALIA: Male. RECTAL: Deferred. EXTREMITIES: Shows positive surgical scars of the left hip, left lower extremity. NEUROLOGIC: The patient is alert, awake, responsive. The patient was found to be episodically confused, disoriented and agitated yesterday. GAIT: Strength examination is not tested. MUSCULOSKELETAL: As per the body mass index. DIAGNOSTICS: 09/26, WBC 10.9, hemoglobin/hematocrit 12.1, 37.3, platelet 394. Granulocytes 84% segs. Sodium 141, potassium 3.9, chloride 102, CO2 29, BUN 19, creatinine 0.7, glucose 109, calcium 9.2, phosphorus 5.6, magnesium 1.9. Troponin negative. IMPRESSION AND PLAN: 1. Questionable and possible seizure-like activity versus postictal state. 2. Acute encephalopathy with episodic confusion, agitation and disorientation. 3. Normocytic anemia. 4. Leukocytosis with granulocytosis. 5. Hypokalemia. 6. Questionable increase anion gap metabolic acidosis. 7. Bilateral bibasilar airspace disease and pneumonia, right more than the left. 8. Questionable right lower lobe lung mass. 9. Degenerative joint disease of the spine. 10. History of gait dysfunction. 11. History of recurrent fall. 12. Right bundle-branch block. 13. Sinus tachycardia. 14. Ketonuria, microscopic hematuria, pyuria, bacteriuria. 15. Questionable bilateral bibasilar community-acquired pneumonia. 16. Narcotic-dependent chronic pain syndrome. 17. Chronic narcotic dependence and narcotic abuse. 18. History of narcotic induced constipation. 19. History of nonobstructive coronary artery disease. 20. History of hypovitaminosis D, history of hyperlipidemia, history of anxiety, history of mood spectrum disorder. 21. Bilateral carotid siphon plaques. PLAN: At this time, the patient has been ordered a CT scan of the chest, results are pending. The patient has been ordered carotid and vertebral Doppler. The patient has been ordered broad-spectrum IV antibiotics, nebulizer treatment has been ordered. In addition, the patient has been ordered chest PT, incentive spirometry. The patient is presently on aspirin 81 daily, Lipitor 40 daily, Protonix 40 mg daily. The patient is awaiting Neurology and Psychiatry evaluation. Once the patient has had Neurology, Psychiatry evaluation, the patient's home medications including the morphine, oxycodone and Xanax and other medications will be considered to be resumed and also once the patient's mental status has improved, above medications will be considered to be reduced. In addition, the patient has been ordered out of bed to chair, physical therapy, occupational therapy, ambulation therapy, gait training, SCDs, CLIFFORD stockings, DVT prophylaxis ordered. At present, the patient's further management will be dependent upon the patient's clinical condition, hemodynamic status and as per the patient response to therapeutic intervention as per the patient's diagnostic test results and as per recommendation by all the physician involved in the care of the patient. Dictated and electronically signed, not read. Luis San MD
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
[2018-09-26] MEDS ORDERED: Lidocaine 5% Patch TD SCH (15:30)
--- NOTE | 2018-09-26 15:34 | MRI ---
Date of service: 09/26/2018 PROCEDURE: MR THORACIC SPINE WITHOUT CONTRAST HISTORY: COMPRESSION FX COMPARISON: None available. TECHNIQUE: Multiecho multiplanar sequences were performed through the thoracic spine without the use of intravenous contrast. FINDINGS: ALIGNMENT: There is no evidence of significant subluxation. Thoracic spine kyphosis is noted centered at T6 VERTEBRA: . there is severe compression deformity of T6 associated with bone marrow edema. There is also moderate to severe compression deformity of T8 associated with bone marrow edema. Moderate compression deformity of T5 is also noted. There is moderate compression deformity at the superior endplate of T7 associated with bone marrow edema. Mild to moderate compression deformity of T3 likely chronic mild compression deformity at the superior endplate of T4 likely chronic. Mild compression deformity of T10 without bone marrow edema likely chronic. MARROW: Bone marrow edema noted at T6-T7 and T8 likely due to acute or subacute compression fracture. PARASPINAL SOFT TISSUES: Unremarkable. CORD: Unremarkable thoracic cord. No volume loss, signal abnormality or syrinx. DISCS: Multilevel moderate degenerative disc changes noted. OTHER FINDINGS: At T6 level there is small bony retropulsion which resulting in mild central thecal sac narrowing. IMPRESSION: Severe compression deformity of T6 associated with bone marrow edema likely acute or subacute. Moderate compression deformity of T8 associated with bone marrow edema also likely acute or subacute. Aert-of-bnvlwcaz superior endplate T7 compression deformity associated with bone marrow edema likely acute or subacute. Multilevel chronic mild compression deformity including T3-T4 T5 T10 without bone marrow edema likely chronic. No evidence of cord compression. Small bony retropulsion at T6 level associated with mild thecal sac narrowing. Moderate degenerative disc changes.
--- NOTE | 2018-09-26 15:39 | MRI ---
Date of service: 09/26/2018 PROCEDURE: MR LUMBAR SPINE WITHOUT CONTRAST HISTORY: COMPRESSION FX COMPARISON: Comparison is made with 12/29/2016 TECHNIQUE: Multiecho multiplanar sequences were performed through the lumbar spine without the use of intravenous contrast. FINDINGS: Normal lumbar lordosis. There is moderate compression deformity of L1 and L3 associated with bone marrow edema likely represent subacute for compression fracture. No evidence of destructive bony lesion. Conus medullaris unremarkable at the level of T12 Paraspinal soft tissues are unremarkable. T12-L1: No disc herniation, spinal canal stenosis or neural foraminal narrowing. L1-2: No disc herniation, spinal canal stenosis or neural foraminal narrowing. L2-3: No disc herniation, spinal canal stenosis or neural foraminal narrowing. L3-4: No disc herniation, spinal canal stenosis or neural foraminal narrowing. L4-5: There is a broad-based small posterior bulging disc associated with posterior ligament and facet joint hypertrophy which resulting in mild thecal sac and left neural foraminal narrowing. L5-S1: No disc herniation, spinal canal stenosis or neural foraminal narrowing. OTHER FINDINGS: There is a small bony retropulsion at L1 level without evidence of significant spinal or neural foraminal narrowing P IMPRESSION: Moderate subacute compression fracture of L1 and L3. Small bony retropulsion at L1 level without evidence of significant spinal stenosis. Small bulging disc at L4-L5 associated with posterior ligament and facet joint hypertrophy which resulting in mild spinal stenosis.
--- NOTE | 2018-09-26 22:09 | CON ---
DATE: 09/26/2018 TIME: 5:36 p.m. CHIEF COMPLAINT/HISTORY OF PRESENT ILLNESS: This is a 58-year-old who was admitted for mental status changes and possible seizure. He states he is having severe mid thoracic back pain since admission. His workup has noted multiple thoracic and lumbar compression fractures. On thoracic MRI, there are acute fractures of T6 and T8 with edema. This corresponds to the patient's severe interscapular pain. He has no bowel or bladder issues. He denies any chronic fever or night sweats. He has no history of malignancy Mr. South has a challenging past medical history. He has chronic pain syndrome with prolonged opiate use. He also has a history of anxiety. I spoke with Mr. South concerning the kyphoplasty procedure. His pain is severe and he said he has not had this type of pain in the past. I will schedule for T6 and T8 kyphoplasty. He understands the risks, benefits and alternatives. David Patel MD MTDAhmet
--- NOTE | 2018-09-27 00:05 | CON ---
DATE: 09/26/2018 HISTORY OF PRESENT ILLNESS: This is a 58-year-old male who came to the emergency room by ambulance because he was found altered by his and had difficulty breathing. So, emergency physician evaluated the patient, and at that time patient was unable to answer the questions. Patient has a long past medical history of coronary artery disease, COPD, DVT, right bundle branch block, depression, anxiety, called to evaluate the patient. In the emergency room, patient was uncooperative, confused, combative, and was oriented only to self. REVIEW OF SYSTEMS: A 10-point review of system was negative. ALLERGIES: TO CELEBREX, IBUPROFEN, AND NAPROXEN. SOCIAL HISTORY: Positive for substance abuse. Positive for alcohol abuse, nicotine dependence. PHYSICAL EXAMINATION NEUROLOGIC: The patient is awake, oriented to self and place. Cranial nerves II through XII are tested. Pupils reactive. EOM intact. Visual field full. No facial asymmetry. Tongue midline. Motor exam, moves all the extremities spontaneously upper more than the lower. Deep tendon reflexes 1+. Both plantars are downgoing. Sensory appears intact. Cerebellar gait deferred. IMPRESSION AND PLAN: Altered mental status, possibly toxic metabolic encephalopathy. MRI of the lumbar spine and thoracic spine showed subacute to acute vertebral body compressions, C7 to T10, and also in the lumbar L1 to L4. Dr. aDvid Patel was consulted for possible kyphoplasty. Otherwise, he is more awake. CAT scan of the head was negative. Carotid Doppler, mild stenosis and thoracic and lumbar MRI suggested and continue present management. We will follow up. Ernst Snyder MD
[2018-09-27] MEDS: Levalbuterol 0.63 MG/3 ML Inhal Soln UD IH SCH ×4 (01:31→20:45)
[2018-09-27] MEDS: Acetylcysteine 20% Inhal Soln (4ml) IH SCH ×4 (01:31→20:45)
[2018-09-27] MEDS: Pantoprazole 40 mg EC Tab PO SCH (05:48)
[2018-09-27 06:50] LABS: BASO # 0.03 K/mm3 (0.0-2.0); BASO % 0.4 % (0.0-3.0); EOS % 0.1 % (1.5-5.0); GRAN # 4.98 (1.4-6.5); GRAN % 68.5 % (50.0-68.0); LYMPH # 1.6 (1.2-3.4); LYMPH % 21.6 % (22.0-35.0); MEAN CELL VOLUME 90.7 fl (80.0-105.0); MEAN CORPUSCULAR HEMOGLOBIN 29.3 pg (25.0-35.0); MEAN CORPUSCULAR HGB CONC 32.4 g/dl (31.0-37.0); MEAN PLATELET VOLUME 9.6 fl (7.0-11.0); MONO # 0.7 (0.1-0.6); MONO % 9.4 % (1.0-6.0); RBC 3.75 10^6/uL (3.5-6.1); RED CELL DISTRIBUTION WIDTH 13.9 % (11.5-14.5); WHITE BLOOD COUNT 7.3 10^3/uL (4.5-11.0)
[2018-09-27 06:55] LABS: ALB/GLOB RATIO 1.2 (1.1-1.8); ALBUMIN 4.1 g/dL (3.0-4.8); ALT/SGPT 17 U/L (7-56); AST/SGOT 27 U/L (17-59); BILIRUBIN,DIRECT 0.1 mg/dL (0.0-0.4); BLOOD UREA NITROGEN 14 mg/dL (7-21); CALCIUM 8.8 mg/dL (8.4-10.5); GFR NON-AFRICAN AMERICAN > 60
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
--- NOTE | 2018-09-27 09:35 | PN ---
DATE: 09/27/2018 LOCATION: The patient is in room 276, bed 1. SUBJECTIVE: Overnight nurse's notes were reviewed. The patient complained of very few episodes of pain which was relived by IV Toradol. The patient also complained of anxiety for which the patient receives Xanax 1 mg with positive relief. The patient is seen lying in the bed. The patient is awake, responsive, alert, is able to follow commands. The patient does have difficulty sitting up from the lying position. PHYSICAL EXAMINATION: VITAL SIGNS: Telemetry monitoring shows sinus rhythm, heart rate 60-74, T-max 98.1, blood pressure 136/91, respirations 20 and O2 sat 96%. HEENT: Head examination normocephalic and atraumatic. HEENT examination shows pinkish pale conjunctivae. Anicteric sclerae. No oropharyngeal lesion. No neck rigidity. CHEST: Kyphosis. LUNGS: Shows positive rhonchi bilaterally. No audible crackle, rales or wheezing. CARDIOVASCULAR: Examination S1, S2, regular rhythm. Questionable soft systolic murmur left sternal border, right second intercostal space, left second intercostal space. ABDOMEN: Soft. Positive bowel sounds. GENITALIA: Male. RECTAL: Deferred. EXTREMITIES: Shows no pitting edema, no calf tenderness, no Velia's signs. Positive surgical scar of the left hip and left lower extremity noted. Gait examination is not tested. Positive spine tenderness noted. DIAGNOSTIC DATA: CMP is available from today September 27, 2018, sodium 142, potassium 4.0, chloride 108, CO2 of 27, BUN 14, creatinine 0.5, glucose 95, calcium 8.8, phosphorus 3.8 and magnesium 2.0. LFTs are within normal limit. MRI of the thoracic spine and lumbar spine, CT of the chest, CT abdomen and pelvis, carotid Doppler and EKG reviewed. IMPRESSION: 1. Altered mental status versus episodic confusion, agitation and encephalopathy, etiology unclear. 2. Questionable postictal state. 3. Questionable seizure or unwitnessed seizure. 4. Hypokalemia. 5. Multilevel thoracic spine compression deformity. 6. T5, T6, T7 and T8 acute versus subacute compression fracture. 7. T3, T4 and T10 chronic compression deformity. 8. Degenerative disc disease of the thoracic spine. 9. L1 and L3 acute versus subacute compression deformity. 10. Lumbar spine degenerative disc disease. 11. A 20-39% bilateral internal carotid artery stenosis. 12. Bibasilar atelectasis versus bibasilar pneumonia. 13. Gait dysfunction. 14. Chronic narcotic-dependent pain syndrome. 15. Generalized anxiety disorder. 16. Leukocytosis. 17. Granulocytosis. 18. Normocytic anemia. PLAN: At this time, the patient is awaiting kyphoplasty by Dr. David Patel today. The patient will be undergoing kyphoplasty today. The patient was seen by Neurology, their recommendations were noted. The patient is still awaiting Psychiatry official evaluation. At present, the patient will be continued on IV fluid normal saline at 100 mL an hour with adjusted dose of potassium 10 mEq, in each liter. The patient will be continued on GI and DVT prophylaxis. The patient's Xanax is resumed p.r.n. The patient is on GI and DVT prophylaxis. The patient is on broad-spectrum antibiotic for suspicion of bibasilar pneumonia. The patient will await blood cultures results. The patient will be continued on IV antibiotics if the cultures are negative. The patient has been ordered chest PT. The patient has been ordered bronchodilators, Mucomyst and Xopenex nebulizer treatment. Chest PT, and incentive spirometry has been ordered. The patient has also been ordered physical therapy, occupational therapy, ambulation therapy and gait training. The patient has been ordered PT and OT evaluation. The patient is awaiting for kyphoplasty of the compression deformity of the spine. Current consultation, Neurology, Interventional Radiology and Psychiatry. The patient's further management will be dependent upon the patient's clinical condition, hemodynamic status and as per the patient response to therapeutic intervention as per the patient's diagnostic test results and as per recommendation by all the physicians involved in the care of the patient. Dictated and electronically signed, not read. Luis San MD
[2018-09-27] MEDS: Lidocaine 5% Patch TD SCH (09:43)
[2018-09-27] MEDS: POLYETHYLENE GLYCOL 3350 17 GM/Dose PACKET PO SCH ×2 (09:45→17:51)
[2018-09-27] MEDS ORDERED: ALPRAZOLAM 2 MG PO SCH (10:00)
--- NOTE | 2018-09-27 10:54 | MRI ---
Date of service: 09/27/2018 PROCEDURE: MRI BRAIN WITHOUT CONTRAST HISTORY: AMS COMPARISON: Comparison made with prior CT scan brain 09/25/2018. TECHNIQUE: Patient terminated the exam with only axial diffusion and T2 weighted sequences obtained... Study is further limited by motion artifact FINDINGS: HEMORRHAGE: No gross intracranial hemorrhage. DWI: No evidence of an acute or early subacute infarction seen on imaging. BRAIN PARENCHYMA: There appears to be very mild chronic periventricular white matter ischemic changes with chronic infarct left superior caudate body. Moderate central volume loss evidenced by slight disproportionate enlargement of ventricles compared the sulci. VENTRICLES: No obstructive hydrocephalus. CRANIUM: Calvarium poorly delineated on this limited exam ORBITS: Orbits and contents grossly unremarkable. PARANASAL SINUSES/MASTOIDS: Clear VASCULAR SYSTEM: Visualized major vascular flow voids at skull base appear patent. OTHER FINDINGS: None. IMPRESSION: Incomplete study further limited by motion artifact as detailed above. No evidence acute infarcts seen. No gross intracranial hemorrhage.. Suspect mild chronic periventricular white matter ischemic changes. Small chronic infarct superior left caudate body felt be present
[2018-09-27] MEDS: cefTRIAXone 2 GM IN NS 2 GM/100 ML BAG IVPB SCH (11:12)
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
[2018-09-27] MEDS ORDERED: Lidocaine 2% Inj (20ml) ONE (13:40)
[2018-09-27] MEDS ORDERED: Iodixanol 320 MG/ML 200 ML BOTTLE IV ONE (13:41)
[2018-09-27] MEDS ORDERED: Midazolam 2 MG/2 ML VIAL ONE ×3 (14:28→14:45)
--- NOTE | 2018-09-27 16:00 | VASCULAR ---
PROCEDURE: 1. T6 kyphoplasty. 2. T8 kyphoplasty HISTORY: Recent fall. Severe refractory mid thoracic spine pain. Acute T6 and T8 compression fractures on MRI. PHYSICIAN(S): David Patel MD. TECHNIQUE: he relative risks and indications of the procedure were explained to the patient and informed written consent obtained. The patient was placed prone on the arteriography table and the thoracolumbar spine prepped and draped in the usual sterile fashion. Conscious sedation and monitoring were provided throughout the procedure by a nurse. The T8 vertebral body was carefully localized with fluoroscopy. The skin and soft tissues were anesthetized with 1% Xylocaine. Under direct fluoroscopic guidance, a right transpedicular bone needle was placed into the posterior medial aspect of the T8 vertebral body. A curette was utilized. A 10 mm bone balloon was inflated to 3 cc. The balloon was removed and 3 cc of barium-impregnated PMMA cement placed in the T8 vertebral body. No extravasation was appreciated Next the T6 vertebral body was carefully localized with fluoroscopy. The skin and soft tissues were anesthetized 1 percent xylocaine. Through a left transpedicular approach, a bone needle was placed in the posterior and medial aspect of the T6 vertebral body. Once again a curette was utilized. A 10 mm bone balloon was placed in the T6 vertebral body and inflated to 1.75 cc. The balloon was removed and 1.5 cc of barium-impregnated PMM a cement placed in the T6 vertebral body. A minimal amount of extravasation superiorly into the disc space was noted [place] were removed and dressings applied. The patient tolerated the procedure well IMPRESSION: 1. T6 kyphoplasty. 2. T8 kyphoplasty.
--- NOTE | 2018-09-27 16:35 | PCM.EEG ---
Electroencephalogram Report - Electroencephalogram Report Procedure Date: 09/27/18 Medication: ASA, Ativan Zofran. Interpretation: C Technical Information: This was a 16 -channel EEG, 1-channel EKG routine EEG performed using an Tapvalue machine. Electrodes were applied using the 10/20 international placement system. linical Information: Alter mental status During resting wakefulness there was a symmetric posterior dominant rhythm at 8.5-9.5 Hz, 30-50 uV, which was reactive to eye opening and closing. Drowsiness was not seen. There was an excessive amount of beta activity seen. Light sleep was not recorded Hyperventilation was not performed. Photic stimulation was performed and there were no changes on the record. Focal abnormality; none ECG was associated with a normal sinus rhythm. I Impression: This is a normal awake electroencephalogram.
[2018-09-27 18:12] VITALS: RESP 18
[2018-09-27 18:35] VITALS: O2SAT 97
--- NOTE | 2018-09-28 01:02 | CON ---
DATE OF CONSULTATION: 09/27/2018 HISTORY OF PRESENT ILLNESS: In Short, the patient is a 58-year-old male, history of right bundle branch block, history of DVT/PE. The patient also has multiple medical issues. The patient was admitted for evaluation of altered mental status. In the emergency room, the patient was combative, uncooperative, confused and medical team wants to rule out seizure episode. This bid writer was involved into the patient because the patient has history of misuse and abuse of pain medication as well as benzodiazepines. Yesterday, the patient was in procedure and this bid writer met this patient. The patient was seen today. The patient presented to be alert and oriented, pleasant, cooperative. The patient is quite aware of the circumstances of his admission and all medical procedures what he had so far. The patient reported that he was not feeling depressed. He was taking benzodiazepines and pain killers. Benzodiazepines the patient reported that he is taking for muscle relaxation as well as pain killers he is taking for chronic back pain. The patient reports that he has a pain specialist and he practices somewhere in [place]. The patient does not remember the name of the pain specialist. The patient denies being depressed. Denied any thoughts of harming herself or others. The patient denied seeing things, denied hearing things. The patient denied feeling anxious. The patient reported that he has never been admitted to the psychiatric inpatient unit. The patient reported that he never tried to kill himself in the past. This bid writer reviewed previous history. The patient was admitted to [facility] and it was only for 1 day. The patient was admitted for possible suicidal ideations. The patient has history of mood disorder due to drug dependency. The patient reported that he does not have a psychiatrist in the community and the patient did not want to be seen by a psychiatrist in the past. Further review in the history, the patient was screened by [facility] in 2013, but was found to be not committable. Going back to current presentation, at present moment, vital signs seem to be stable. Temperature 98.1, pulse is 57, blood pressure 136/91, respirations 26 and saturation is 96. MEDICATIONS: Reviewed. Tylenol,Xanax 2 mg three times a day as needed for anxiety, aspirin, Lipitor, Rocephin, Colace, heparin, Lidoderm, Ativan as needed for seizure activity, Zofran, Protonix, MiraLax, potassium chloride. LABS: Reviewed. There is no signs of leukocytosis. Toxicology reviewed. Benzodiazepines and opioids was positive. The patient has multiple tests including cardiac cath. The patient also had brain MRI, which was done today, on 09/27/2018, which showed incomplete study further limited by motion artifact as detailed above and also suspected mild chronic periventricular white matter ischemic changes. The patient also had thoracicolumbar spine MRI, which showed severe compression deformity of T6 and multilevel chronic mild compression deformity including T3, T4, T5 and T10. Lumbar spine MRI also was obtained. Moderate subacute compression fracture of L1 and L3, small bony retropulsion at L1 without spinal stenosis, small bulging disk L4 and L5. As per nursing staff, the patient does not have any agitation or aggression. MENTAL STATUS EXAMINATION: The patient presented to be alert and oriented, pleasant and cooperative. No signs of depression. The patient denied any thoughts of harming himself or others. The patient reported his mood is okay. Affect was constricted. Thought process coherent and goal directed. Thought content, the patient denied visual, auditory, tactile hallucinations. Denied paranoid ideation. The patient denied thoughts of harming himself or others. Denied intent or plan. Insight and judgment seems to be improving. Impulses are well controlled. IMPRESSION Rule out misuse and abuse painkillers as well as benzodiazepines, but at the same time, this is obvious that the patient has changes with his thoracic and lumbar spine and has chronic back pain. PLAN: This bid writer suggested to medical team to call to the patient's pharmacy and confirm all of the medications. The patient was not depressed. Denied thoughts of harming himself or others and the patient is not psychotic. This bid writer will sign off from this case. The patient posed no imminent danger to self or others. Should you have any questions, give me a call back. Cindy Gould MD [facility]
[2018-09-28] MEDS: Levalbuterol 0.63 MG/3 ML Inhal Soln UD IH SCH ×4 (01:59→20:49)
[2018-09-28] MEDS: Acetylcysteine 20% Inhal Soln (4ml) IH SCH ×4 (01:59→20:49)
[2018-09-28] MEDS: Pantoprazole 40 mg EC Tab PO SCH (05:24)
[2018-09-28 07:16] LABS: BASO # 0.01 K/mm3 (0.0-2.0); BASO % 0.1 % (0.0-3.0); GRAN # 7.13 (1.4-6.5); GRAN % 79.7 % (50.0-68.0); HEMOGLOBIN 12.1 g/dL (14.0-18.0); LYMPH # 1.1 (1.2-3.4); MEAN CELL VOLUME 89.6 fl (80.0-105.0); MEAN CORPUSCULAR HEMOGLOBIN 29.3 pg (25.0-35.0); MEAN CORPUSCULAR HGB CONC 32.7 g/dl (31.0-37.0); MEAN PLATELET VOLUME 9.8 fl (7.0-11.0); MONO # 0.7 (0.1-0.6); MONO % 8.2 % (1.0-6.0); RBC 4.13 10^6/uL (3.5-6.1); RED CELL DISTRIBUTION WIDTH 13.7 % (11.5-14.5); WHITE BLOOD COUNT 8.9 10^3/uL (4.5-11.0)
[2018-09-28 07:41] LABS: ALB/GLOB RATIO 1.2 (1.1-1.8); ALBUMIN 4.1 g/dL (3.0-4.8); ALT/SGPT 20 U/L (7-56); AST/SGOT 24 U/L (17-59); BILIRUBIN,DIRECT 0.2 mg/dL (0.0-0.4); BLOOD UREA NITROGEN 11 mg/dL (7-21); CALCIUM 8.7 mg/dL (8.4-10.5); GFR NON-AFRICAN AMERICAN > 60
[2018-09-28] MEDS: POLYETHYLENE GLYCOL 3350 17 GM/Dose PACKET PO SCH (09:28)
[2018-09-28 10:50] LABS: GLYCOMARK(R) 17.6 mcg/mL (7.3-36.6)
[2018-09-28] MEDS: Lactobacillus Acidophilus 500 MU Cap PO SCH ×2 (11:11→18:10)
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
[2018-09-28] MEDS ORDERED: Morphine 30 mg SR Tab PO PRN ×3 (11:39→12:28)
[2018-09-28] MEDS ORDERED: Morphine 30 mg SR Tab PO SCH (11:45)
[2018-09-28] MEDS: cefTRIAXone 2 GM IN NS 2 GM/100 ML BAG IVPB SCH (11:52)
[2018-09-28] MEDS: oxyCODONE 30 mg Immediate Release Tab PO PRN ×2 (11:55→18:10)
[2018-09-28] MEDS ORDERED: oxyCODONE 30 mg Immediate Release Tab PO SCH (12:00)
[2018-09-28] MEDS: Lidocaine 5% Patch TD SCH (12:02)
[2018-09-28] MEDS ORDERED: Lidocaine 5% Patch TD SCH (15:30)
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
[2018-09-28 17:41] VITALS: BP 132/91; PULSE 64; TEMP 97.7
--- NOTE | 2018-09-29 02:04 | DS ---
FINAL PROGRESS NOTE AND DISCHARGE SUMMARY SUBJECTIVE: The patient is discharged to transitional care unit. Today, the patient was seen and examined in room 226, bed 1. The patient is complaining of pain. According to the nurses' notes, the patient was found to be verbally abusive to the staff. The patient was also found to be making inappropriate statements towards the staff. The patient refused the Ultram, which was ordered. The patient stated that he had diarrhea yesterday and last night. Telemetry shows sinus rhythm, intermittent sinus bradycardia. PHYSICAL EXAMINATION: VITAL SIGNS: T-max 98.1; blood pressure 132/91 146/96, 145/90, 144/89; respirations 18 to 20; O2 sat is 97% to 100%. HEENT: Head examination; normocephalic, atraumatic. HEENT examination shows pinkish pale conjunctivae. Anicteric sclerae. No oropharyngeal lesion. NECK: No neck rigidity. CHEST: Symmetrical. LUNGS: Show no audible crackle, rales, or wheezing. Occasional rhonchi noted. CARDIOVASCULAR: S1 and S2, regular rhythm. Questionable soft systolic murmur, left sternal border, right second intercostal space, left second intercostal space. ABDOMEN: Soft. Positive bowel sounds. No palpable hepatosplenomegaly noted. BACK: Positive dressing of the spine area noted, which is status post kyphoplasty. MUSCULOSKELETAL: Shows a body mass index of 26. Motor strength is 5/5 in the upper and lower extremities. NEUROLOGIC: Gait examination is not tested. VASCULAR: Palpable pulses. DIAGNOSTICS: On September 28, 2018, WBC 8.9, hemoglobin/hematocrit 12.1/37.0, platelets 388. Granulocytes 79% segs. Sodium 142, potassium 3.0, chloride 107, CO2 of 27, anion gap 12, BUN 11, creatinine 0.6. GFR greater than 60. Glucose 102, calcium 8.7. Phosphorus 4.0, magnesium 1.8. LFTs are normal. Troponin, all 3 sets are negative. Thyroid panel is within normal limit. Blood and urine cultures, negative. IMPRESSION: 1. Altered mental status with episodic confusion, disorientation with questionable and possible seizure disorder or unwitnessed seizure with postictal state. 2. Chronic narcotic-dependent pain syndrome. 3. Intermittent sinus bradycardia. 4. Right bundle-branch block. 5. Hypertension. 6. History of chronic noncompliance and poor compliance. 7. Transient leukocytosis with granulocytosis. 8. Normocytic anemia. 9. Hypokalemia. 10. Increased anion gap transient, increased anion gap metabolic acidosis. 11. Hyperfructosenemia with prediabetes and hemoglobin A1c of 5.3. 12. Transient hyperphosphatemia. 13. Proteinuria, microscopic hematuria, pyuria, bacteriuria. 14. Urine drug screen positive for opiates and benzodiazepine. 15. 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 16. Cerebral cortical volume loss with disproportionate ventriculomegaly. 17. Incomplete MRI brain study. 18. T6, T7, T8 compression deformity and [id number] compression fracture. 19. T3, T4, T5, T10 multilevel chronic compression deformity and chronic compression fracture. 20. Degenerative disc disease of the thoracic spine. 21. Subacute compression deformity of L1 and L2 with moderate compression deformity and bony marrow edema. 22. L4-L5 bulging disc. 23. L4-L5 spinal stenosis. 24. Lumbar spine degenerative disc disease. 25. A 20% to 39% bilateral proximal internal carotid artery stenosis. 26. Severe compression fracture of the thoracic spine. 27. Bibasilar linear consolidation and atelectasis. 28. Narcotic and benzodiazepine misuse and abuse. 29. Status post thoracic 6 and thoracic 8 kyphoplasty. 30. Gait dysfunction. 31. Behavioral disorder with verbal abusive nature. 32. Hyperlipidemia. 33. Anxiety disorder. PLAN: At this time, the patient has been accepted to TCU. The patient will be discharged to TCU on following medications: Xopenex nebulizer 0.63 mg and Mucomyst nebulizer every 6 hours; Ativan 1 mg IV every 4 hours p.r.n.; Bacid 1 capsule twice a day, total 4 doses; Ecotrin 81 mg daily; heparin 5000 units subcutaneous every 8 hours to be resumed tomorrow; Lidoderm 5% patch to the affected area of the spine; Lipitor 40 mg daily; morphine sulfate 90 mg every 12 hours, oxycodone 30 mg every 6 hours p.r.n. The patient is ordered potassium riders, which will be completed; Protonix 40 mg daily; Tylenol 650 mg p.o. suppository every 6 and 4 hours p.r.n.; Xanax 2 mg t.i.d. p.r.n.; Zofran 4 mg IV every 4 hours p.r.n. The patient will be resumed on vitamin D 50,000 units weekly. The patient will be discharged to TCU under Dr. San's service. The patient will be followed up on TCU. The patient will undergo daily physical therapy, occupational therapy, ambulation therapy, gait training, etc. on TCU. The patient will be continued on TCU for approved number of days. Dictated and electronically signed, not read. Luis San MD
--- NOTE | 2018-10-02 18:03 | PQF ---
PROVIDER RESPONSE TEXT: PROBABLY SECONDARY TO UNDERLYING MEDICAL CONDITIONS AND NARCOTICS AND BENZODIAZEPINE USE REVIEWER QUERY TEXT: Clarification of Clinical Diagnostic Findings Please clarify documentation or clinical relevance for the clinical / diagnostic findings or whether those are insignificant or unable to be further specified. The patient's Clinical Indicators include: Query created by: Jodie Obando on 10/01/2018 5:18 PM Electronically signed by: Luis San MD 10/02/2018 5:59 PM
== END 2018-09-28 21:17 | DRG 939 ==
LOC: ED 19:01 → ERH 23:45 → 2RSO 09-26 02:10
PROVIDERS: ADMIT Internal Medicine; ATTEND Internal Medicine
PROC: 0PS43ZZ Reposition Thoracic Vertebra, Percutaneous Approach (ICD-10-PCS; principal; 2018-09-27)
PROC: 0PU43JZ Supplement Thoracic Vertebra with Synthetic Substitute, Percutaneous Approach (ICD-10-PCS; 2018-09-27)
DX: R41.82 Altered mental status, unspecified (principal); J18.9 Pneumonia, unspecified organism; G92 Toxic encephalopathy; E87.2 Acidosis; E87.3 Alkalosis; F11.20 Opioid dependence, uncomplicated; M48.56XA Collapsed vertebra, not elsewhere classified, lumbar region, initial encounter for fracture; M48.54XA Collapsed vertebra, not elsewhere classified, thoracic region, initial encounter for fracture; J44.0 Chronic obstructive pulmonary disease with (acute) lower respiratory infection; J98.11 Atelectasis; N39.0 Urinary tract infection, site not specified; T42.4X5A Adverse effect of benzodiazepines, initial encounter; T40.605A Adverse effect of unspecified narcotics, initial encounter; F10.10 Alcohol abuse, uncomplicated; J44.9 Chronic obstructive pulmonary disease, unspecified; G89.29 Other chronic pain; I25.10 Atherosclerotic heart disease of native coronary artery without angina pectoris; E87.6 Hypokalemia; D64.9 Anemia, unspecified; E83.39 Other disorders of phosphorus metabolism; M51.34 Other intervertebral disc degeneration, thoracic region; M51.36 Other intervertebral disc degeneration, lumbar region; F41.1 Generalized anxiety disorder; Z91.19 Patient's noncompliance with other medical treatment and regimen; Z87.891 Personal history of nicotine dependence; Z86.718 Personal history of other venous thrombosis and embolism; Z86.711 Personal history of pulmonary embolism; E78.5 Hyperlipidemia, unspecified; F39 Unspecified mood [affective] disorder; F91.9 Conduct disorder, unspecified; G93.89 Other specified disorders of brain; H54.7 Unspecified visual loss; I11.9 Hypertensive heart disease without heart failure; I45.10 Unspecified right bundle-branch block; I65.23 Occlusion and stenosis of bilateral carotid arteries; K57.30 Diverticulosis of large intestine without perforation or abscess without bleeding; K86.89 Other specified diseases of pancreas; M47.9 Spondylosis, unspecified; M48.061 Spinal stenosis, lumbar region without neurogenic claudication; M85.80 Other specified disorders of bone density and structure, unspecified site; R31.29 Other microscopic hematuria; R73.03 Prediabetes; Z79.899 Other long term (current) drug therapy; Z81.8 Family history of other mental and behavioral disorders; Z90.81 Acquired absence of spleen; R00.1 Bradycardia, unspecified; R91.8 Other nonspecific abnormal finding of lung field; K59.03 Drug induced constipation; M19.90 Unspecified osteoarthritis, unspecified site; G40.909 Epilepsy, unspecified, not intractable, without status epilepticus

== ENCOUNTER 2018-09-28 20:55 | Inpatient (IN) | payer OTHER ==
[2018-09-29] MEDS: oxyCODONE 30 mg Immediate Release Tab PO PRN ×4 (00:17→21:28)
[2018-09-29] MEDS: Morphine 30 mg SR Tab PO PRN ×2 (00:47→12:25)
[2018-09-29] MEDS: Acetylcysteine 20% Inhal Soln (4ml) IH SCH ×4 (01:45→19:52)
[2018-09-29 05:28] VITALS: BMI 25.3
[2018-09-29] MEDS: Pantoprazole 40 mg EC Tab PO SCH (05:42)
[2018-09-29] MEDS: Levalbuterol 0.63 MG/3 ML Inhal Soln UD IH SCH ×3 (08:47→19:52)
[2018-09-29] MEDS: Lidocaine 5% Patch TD SCH (09:29)
[2018-09-29] MEDS: Lactobacillus Acidophilus 500 MU Cap PO SCH ×2 (09:30→17:18)
[2018-09-29 09:31] LABS: ALB/GLOB RATIO 1.2 (1.1-1.8); ALBUMIN 3.9 g/dL (3.0-4.8); ALT/SGPT 16 U/L (7-56); AST/SGOT 23 U/L (17-59); BILIRUBIN,DIRECT 0.1 mg/dL (0.0-0.4); BLOOD UREA NITROGEN 11 mg/dL (7-21); CALCIUM 8.5 mg/dL (8.4-10.5); GFR NON-AFRICAN AMERICAN > 60
[2018-09-29] MEDS: Magnesium Sulfate 2 gm/50 ml 2 GM/50 ML BAG IVPB SCH ×2 (13:44→16:17)
[2018-09-29] MEDS: Potassium Chloride 20 mEq ER Tab PO SCH (14:30)
--- NOTE | 2018-09-29 15:19 | CP.PCM.PCO ---
Physician Communication Note - Physician Communication Note Physician Communication Note: discussed with today, no acute changes with pt, signed off
[2018-09-29] MEDS: Magnesium Oxide 400 mg Tab UD PO SCH (17:18)
--- NOTE | 2018-09-29 19:19 | HP ---
DATE OF EXAM: 09/29/2018 HISTORY OF PRESENT ILLNESS: The patient is now in TCU 322, bed one. The patient is seen and examined. The patient was transferred last night from telemetry to TCU.. Overnight nurse's notes were reviewed. No adverse events documented, notified or called. The patient's vital signs from today are not listed in the [facility]. The patient's further details about the patient's previous hospitalization, the patient's past medical history, surgical history, social history, occupational history, medication history, all family history please refer to the history and physical examination dictated on the acute hospitalization dated yesterday and please refer to the discharge summary. PHYSICAL EXAMINATION HEENT: Head examination normocephalic, atraumatic. HEENT examination shows pinkish conjunctivae. Anicteric sclerae. No oropharyngeal lesion. No neck rigidity. CHEST: Examination kyphosis. LUNGS: Examination shows no audible crackle, rales or wheezing. CARDIOVASCULAR: Examination S1, S2, regular rhythm. Questionable soft systolic murmur. ABDOMEN: Soft. Positive bowel sound. GENITALIA: Male. RECTAL: Examination is deferred. EXTREMITIES: Shows no pitting edema, no calf tenderness, no Homans' sign. Motor strength is 5/5 in upper and lower extremity. Gait examination is not tested. MUSCULOSKELETAL: As per the body mass index. NEUROLOGIC: Cranial nerves II-XII limited. Gait examination is not tested. The patient is alert, awake, responsive. PSYCHIATRICALLY: The patient has episodes of anxiety. Yesterday, the patient was noted by the nurses to be threatening and verbally abusive. LABORATORY DATA: The patient's diagnostic labs are pending from today, which will be reviewed once available. IMPRESSION: 1. Deconditioning. 2. Gait dysfunction. 3. Multilevel thoracic and lumbar spine acute, subacute and chronic compression fracture. 4. Status post thoracic 6 and thoracic 8 lumbar spine kyphoplasty. 5. Chronic narcotic-dependent pain syndrome. 6. Status post altered mental status and questionable postictal versus seizure-like activity. 7. Behavioral disorder with verbally abusive behavior. 8. Right bundle-branch block. 9. Degenerative disc disease of the thoracic and lumbar spine. 10. Bibasilar atelectasis and linear scarring right more than the left. 11. Microvascular ischemic disease of the brain. 12. History of noncompliance, poor compliance. 13. Questionable hypertension. 14. History of constipation. 15. Hyperlipidemia. 16. Hypovitaminosis D. 17. Anxiety disorder. 18. Narcotic seeking behavior and chronic narcotic-dependent pain syndrome. 19. Leukocytosis. 20. Hypokalemia. PLAN: At this time, the patient is to be continued on Transitional Care Unit stay. The patient will be continued on the medications as per the MAR of today which was reviewed with continuation of the GI, DVT prophylaxis. The patient's lab work which are ordered for this morning will be reviewed once available. The patient will continue on Transitional Care Unit with daily physical therapy, occupational therapy, ambulation therapy, gait training, increased activity and out of bed to chair. The patient has been advised and counseled extensively about cooperating with the medical staff, physicians, nurses and physical therapy and comply with their recommendation. The patient was advised to be out of bed as much as possible and to cooperate with physical therapy, occupational therapy, ambulation therapy and gait training. The patient will be followed up on TCU on a regular basis. Dictated and electronically signed, not read. Signing off Luis San MD. Thank you. Luis San MD
[2018-09-30] MEDS: Morphine 30 mg SR Tab PO PRN ×2 (00:36→21:32)
[2018-09-30] MEDS: Levalbuterol 0.63 MG/3 ML Inhal Soln UD IH SCH ×4 (01:44→19:25)
[2018-09-30] MEDS: Acetylcysteine 20% Inhal Soln (4ml) IH SCH ×4 (01:44→19:25)
[2018-09-30] MEDS: Pantoprazole 40 mg EC Tab PO SCH (05:28)
[2018-09-30 07:21] LABS: ALB/GLOB RATIO 1.1 (1.1-1.8); ALBUMIN 3.4 g/dL (3.0-4.8); ALT/SGPT 20 U/L (7-56); AST/SGOT 17 U/L (17-59); BILIRUBIN,DIRECT 0.2 mg/dL (0.0-0.4); BLOOD UREA NITROGEN 9 mg/dL (7-21); CALCIUM 8.3 mg/dL (8.4-10.5); GFR NON-AFRICAN AMERICAN > 60
[2018-09-30] MEDS: Potassium Chloride 20 mEq ER Tab PO SCH (08:03)
[2018-09-30] MEDS: oxyCODONE 30 mg Immediate Release Tab PO PRN ×2 (08:38→16:40)
[2018-09-30] MEDS: Lidocaine 5% Patch TD SCH (09:35)
[2018-09-30] MEDS: Magnesium Oxide 400 mg Tab UD PO SCH ×2 (09:36→17:46)
[2018-09-30] MEDS: Benzocaine/Menthol (Cepacol) Lozenge MT PRN ×3 (11:38→21:27)
--- NOTE | 2018-09-30 13:19 | PN ---
DATE: 09/30/2018 SUBJECTIVE: The patient was seen in room 322, bed 1. The patient is lying in the bed. The patient appears to be much more cheerful happy does not appear to be in any distress or pain. The patient is complaining of some sore throat, in right throat. The patient denies any chest pain, shortness of breath. Denies diarrhea. Denies vomiting. Denies constipation. OBJECTIVE: VITAL SIGNS: T-max 98.2, pulse 76, blood pressure 107/66, respiration 18, O2 sat 94%-96%. HEENT: Head is normocephalic, atraumatic. Eyes; shows pink conjunctivae. Anicteric sclerae. No oropharyngeal lesion. NECK: No neck rigidity. CHEST: Kyphosis. LUNGS: Shows no audible crackle, rales or wheezing. CARDIOVASCULAR: S1, S2, regular rhythm. No questionable soft systolic murmur left sternal border, left second intercostal space. ABDOMEN: Soft. Positive bowel sounds. No palpable hepatosplenomegaly noted. GENITALIA: Male. RECTAL: Deferred. EXTREMITIES: Shows no pitting edema, no calf tenderness, no Homans' sign. Positive healed surgical scar of the left hip and left lower extremity. Motor strength is 5/5 in upper and lower extremity. Gait examination is not tested. MUSCULOSKELETAL: Shows a body mass index of 25. PSYCHIATRIC: Positive for anxiety. DIAGNOSTICS: On 09/30/2018; potassium 3.3, phosphorus 4.7, magnesium, rest of the labs are within normal limit. IMPRESSION: 1. Deconditioning. 2. Gait dysfunction. 3. Transient hypotension, asymptomatic. 4. Bibasilar pulmonary chronic changes. 5. Chronic narcotic-dependent pain syndrome. 6. Hyperlipidemia. 7. Hypomagnesemia. 8. Hypokalemia. 9. Anxiety disorder. PLAN: At this time, the patient has been continued on Transitional Care Unit with daily physical therapy, occupational therapy, ambulation therapy, gait training . CURRENT MEDICATIONS: Mucomyst nebulizer 20% 4 mL every 6 hours, Xopenex 0.63 mg every 6 hours, Ativan 1 mg IV every 4 hours, Cepacol lozenges every 2 hours p.r.n., Ecotrin 81 mg daily, heparin 5000 subcu every 8 hours, K-Dur 20 mEq daily, Lidoderm 5% patch daily, Lipitor 40 mg daily, magnesium oxide 400 mg twice a day, morphine extended release 90 mg every 12 hours p.r.n. and oxycodone 30 mg p.o. every 6 hours p.r.n., potassium rider 10 mEq IV piggyback rider x2 given, Protonix 40 mg daily, Tylenol 650 mg every 6 hours p.r.n., Xanax 2 mg three times a day p.r.n., Xopenex nebulizer 0.63 every 6 hours, Zofran 4 mg IV every 6 hours p.r.n. has been ordered. The patient will be continued on the above therapeutic intervention with daily physical therapy, occupational therapy, ambulation therapy, gait training. The patient will be followed up on TCU on a regular basis. Dictated and electronically signed, not read. Luis San MD
[2018-10-01] MEDS: oxyCODONE 30 mg Immediate Release Tab PO PRN ×3 (00:52→17:39)
[2018-10-01] MEDS: Acetylcysteine 20% Inhal Soln (4ml) IH SCH ×4 (01:07→20:05)
[2018-10-01] MEDS: Levalbuterol 0.63 MG/3 ML Inhal Soln UD IH SCH ×4 (01:14→20:05)
[2018-10-01] MEDS: Pantoprazole 40 mg EC Tab PO SCH (05:47)
[2018-10-01] MEDS: Benzocaine/Menthol (Cepacol) Lozenge MT PRN ×5 (06:22→17:42)
[2018-10-01] MEDS: Potassium Chloride 20 mEq ER Tab PO SCH (08:31)
[2018-10-01 09:39] LABS: BLOOD UREA NITROGEN 14 mg/dL (7-21); GFR NON-AFRICAN AMERICAN > 60
[2018-10-01] MEDS: Magnesium Oxide 400 mg Tab UD PO SCH ×2 (10:33→17:38)
[2018-10-01] MEDS: Lidocaine 5% Patch TD SCH (10:34)
--- NOTE | 2018-10-01 14:46 | PN ---
DATE: 10/01/2018 SUBJECTIVE: The patient is seen again lying in the bed in room 322, bed 1. The patient is again seen lying in the bed as mentioned, this is the third of the fourth day. During the hospitalization, I have only seen the patient lying in the bed, not sitting in the chair. The patient denies any chest pain. Denies nausea, vomiting, diarrhea, denies hemoptysis, hematemesis, melena, denies any new pains. PHYSICAL EXAMINATION: VITAL SIGNS: T-max 98.7, heart rate 85, blood pressure 118/76, respiration 20, O2 sat 97%. HEENT: Head: Normocephalic, atraumatic. HEENT exam shows pink conjunctivae. Anicteric sclerae. No oropharyngeal lesion. No neck rigidity. CHEST: Kyphosis. LUNGS: Occasional rhonchi. No crackle, rales or wheezing. CARDIOVASCULAR: S1, S2, regular rhythm. Questionable soft systolic murmur, left sternal border, right second intercostal space, left second intercostal space. ABDOMEN: Soft. Positive bowel sound, no palpable hepatosplenomegaly. GENITALIA: Male. RECTAL: Deferred. EXTREMITIES: No pitting edema, no calf tenderness, no Velia's signs. Motor strength is 5/5 in upper and lower extremity. Gait examination is not tested. VASCULAR: Palpable pulses. NEUROLOGIC: Without gross deficit. PSYCHIATRIC: Positive for history of anxiety. The patient's sore throat symptoms have improved since yesterday. The patient was ordered Cepacol lozenges which the patient is getting every 2 hours p.r.n. DIAGNOSTICS: 10/01/2018: Sodium 139, potassium 4.2, chloride 99, CO2 of 33, anion gap 10, BUN 14, creatinine 0.6, GFR greater than 60, glucose 93, calcium 9. IMPRESSION: 1. Gait dysfunction. 2. Deconditioning. 3. History of poor compliance, noncompliance. 4. Hypokalemia. 5. Hypomagnesemia. 6. Anxiety disorder. 7. Sore throat. 8. Hypokalemia. 9. Chronic narcotic-dependent pain syndrome. 10. Hyperlipidemia. 11. History of constipation. 12. Hypomagnesemia. 13. Anxiety disorder. The patient has been ordered repeat labs. CURRENT MEDICATIONS: Mucomyst nebulizer 20% 4 mL, Xopenex nebulizer 0.63 mg every 6 hours, Ativan 1 mg IV every 4 hours p.r.n., Cepacol lozenges every 2 hours p.r.n., aspirin 81 mg daily, heparin 5000 subcu every 8 hours, K-Dur 20 mEq daily, Lidoderm 5% patch to the affected area, Lipitor 40 mg daily, magnesium oxide 400 mg twice a day, morphine extended release 90 mg p.o. every 12 hours p.r.n., oxycodone IR 30 mg p.o. every 6 hours p.r.n., Protonix 40 mg p.o. daily, Tylenol 650 mg p.o. every 6 hours p.r.n., Xanax 2 mg t.i.d. p.r.n., Zofran 4 mg IV every 6 hours p.r.n. The patient has been repeatedly advice to spend more time sitting out of bed to chair and in therapy. PLAN: At this time, the patient will be continued on TCU stay until approved number of days with daily physical therapy, occupational therapy, ambulation therapy, gait training. Dictated and electronically signed, not read. Luis San MD
[2018-10-01] MEDS: Morphine 30 mg SR Tab PO PRN (15:14)
[2018-10-02] MEDS: oxyCODONE 30 mg Immediate Release Tab PO PRN ×4 (00:32→22:23)
[2018-10-02] MEDS: Levalbuterol 0.63 MG/3 ML Inhal Soln UD IH SCH ×4 (01:14→21:30)
[2018-10-02] MEDS: Acetylcysteine 20% Inhal Soln (4ml) IH SCH ×4 (01:14→21:30)
[2018-10-02] MEDS: Benzocaine/Menthol (Cepacol) Lozenge MT PRN ×5 (05:13→20:32)
[2018-10-02] MEDS: Pantoprazole 40 mg EC Tab PO SCH (05:13)
[2018-10-02 06:49] LABS: ALB/GLOB RATIO 1.2 (1.1-1.8); ALBUMIN 3.8 g/dL (3.0-4.8); ALT/SGPT 13 U/L (7-56); AST/SGOT 16 U/L (17-59); BILIRUBIN,DIRECT 0.2 mg/dL (0.0-0.4); BLOOD UREA NITROGEN 17 mg/dL (7-21); CALCIUM 9.1 mg/dL (8.4-10.5); GFR NON-AFRICAN AMERICAN > 60
[2018-10-02] MEDS: Potassium Chloride 20 mEq ER Tab PO SCH (08:45)
[2018-10-02] MEDS: Magnesium Oxide 400 mg Tab UD PO SCH ×2 (10:42→17:11)
[2018-10-02] MEDS: Lidocaine 5% Patch TD SCH (10:42)
--- NOTE | 2018-10-02 12:00 | PN ---
DATE: 10/02/2018 LOCATION: The patient is seen in room 322, bed 1. SUBJECTIVE: Overnight nurse's notes were reviewed. No adverse events documented, reported, or notified. The patient denies any chest pain. Denies shortness of breath. Denies nausea, vomiting, diarrhea. The patient reports chronic pain complaints of the back. The patient is presently on high doses of morphine. PHYSICAL EXAMINATION: VITAL SIGNS: T-max 98.1, blood pressure 114/62, respirations 18, pulse 74, O2 sat 99%. HEENT: Head normocephalic, atraumatic. Pinkish conjunctivae. Anicteric sclerae. No oropharyngeal lesion. NECK: No neck rigidity. CHEST: Kyphosis. LUNGS: Occasional rhonchi at the bases. No audible crackle, rales, or wheezing. CARDIOVASCULAR: S1, S2. Regular rhythm. Questionable soft systolic murmur at the left sternal border, right second intercostal space, left second intercostal space. ABDOMEN: Soft. Positive bowel sounds. No palpable hepatosplenomegaly noted. GENITALIA: Male. RECTAL: Examination deferred. EXTREMITIES: Healed surgical scar of the left hip surgery. MUSCULOSKELETAL: As per body mass index. Gait examination is not tested. Motor strength is 5/5 in upper lower extremities. NEUROLOGIC: The patient is alert, awake, oriented x3. Cranial nerve examination is limited as the patient is lying in the bed. DIAGNOSTICS: From today, sodium 136, potassium 4.6, chloride 96, CO2 of 34, BUN 17, creatinine 0.6, glucose 101, calcium 9.1, phosphorus 4.9, magnesium 2. IMPRESSION: 1. Gait dysfunction. 2. Deconditioning. 3. Status post acute altered mental status change and acute encephalopathy. 4. Questionable status post postictal state. 5. Chronic narcotic-dependence. 6. Hypomagnesemia. 7. Bibasilar atelectasis, right more than the left. 8. Hypertension. 9. Right bundle-branch block. 10. Anxiety disorder. 11. Questionable behavioral disorder. 12. History of noncompliance and poor compliance. 13. History of constipation. 14. Chronic pain syndrome. 15. Mild normocytic anemia. RECOMMENDATIONS: 1. At present, the patient will be continued on transitional care unit with daily physical therapy, occupational therapy, ambulation therapy, gait training. 2. The patient's medications will be continued as per the MAR of today which was reviewed. The patient will continue to be on TCU until approved number of days. 3. The patient is advised to contact Design Chief regarding arrangements for discharge planning. Dictated and electronically signed, not read. Luis San MD
[2018-10-03] MEDS: Levalbuterol 0.63 MG/3 ML Inhal Soln UD IH SCH ×4 (02:32→23:45)
[2018-10-03] MEDS: Acetylcysteine 20% Inhal Soln (4ml) IH SCH ×4 (02:32→23:45)
[2018-10-03] MEDS: oxyCODONE 30 mg Immediate Release Tab PO PRN ×3 (04:41→18:19)
[2018-10-03] MEDS: Pantoprazole 40 mg EC Tab PO SCH (05:26)
[2018-10-03] MEDS: Potassium Chloride 20 mEq ER Tab PO SCH (07:55)
[2018-10-03] MEDS: Benzocaine/Menthol (Cepacol) Lozenge MT PRN ×4 (07:56→22:18)
[2018-10-03] MEDS: Lidocaine 5% Patch TD SCH (10:27)
[2018-10-03] MEDS: Magnesium Oxide 400 mg Tab UD PO SCH ×2 (10:28→17:12)
--- NOTE | 2018-10-03 13:03 | PN ---
DATE: 10/03/2018 SUBJECTIVE: The patient is in room 322, bed 1. Overnight nurse's notes were reviewed. The patient did sit up out of bed to chair according to the nurse's note. The patient had intermittent complaint of some sore throat, which improved with Cepacol lozenges. The patient's 14-system review was positive for chronic back pain. PHYSICAL EXAMINATION: VITAL SIGNS: T-max 98.8, heart rate 93, 94, blood pressure 121/78, respirations 18. HEENT AND NECK: Head: Normocephalic, atraumatic. HEENT examination shows pinkish pale conjunctivae. Anicteric sclerae. No oropharyngeal lesion. No neck rigidity. CHEST: Kyphosis. LUNGS: Shows no audible crackles, rales or wheezing. CARDIOVASCULAR: S1, S2, regular rhythm. Questionable soft systolic murmur left sternal border, right second intercostal space, left second intercostal space. ABDOMEN: Soft. Positive bowel sounds. No palpable hepatosplenomegaly. No guarding. No rigidity. No rebound tenderness. Positive spine tenderness noted examination. EXTREMITIES: Show no pitting edema, no calf tenderness, no Homans' sign. MUSCULOSKELETAL: Motor strength is 5/5 in upper and lower extremity. Gait examination is not tested. Vascular examination is not tested. DIAGNOSTICS; None from today. IMPRESSION AND PLAN: 1. Gait dysfunction. 2. Deconditioning. 3. Chronic narcotic-dependent pain syndrome. 4. Thoracic and lumbar spine compression fracture. 5. Status post thoracic spine 6 and thoracic spine 8 kyphoplasty. 6. 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 7. Hypokalemia. 8. Hypomagnesemia. 9. Right bundle-branch block. 10. Normocytic anemia. 11. Bibasilar atelectasis. 12. Status post encephalopathy, altered mental status. 13. 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 14. Questionable behavioral disorder. 15. chronic narcotic user. 16. History of anxiety disorder. 17. History of constipation. 18. History of chronic noncompliance. 19. History of deep venous thrombosis and pulmonary embolism, noncompliance with anticoagulation. 20. History of nephrolithiasis. PLAN: At this time, the patient will be continued on the TCU till approved number of days. The patient will be continued on daily physical therapy, occupational therapy, ambulation therapy, gait training. The patient has been advised as much out of bed to chair and ambulate. The patient has been ordered GI, DVT prophylaxis, CLIFFORD stockings, SCDs. The patient will be continued on his pain medications. The patient will be continued on his Xanax. The patient will be continued on both GI, DVT prophylaxis. The patient will continue daily physical therapy, occupational therapy, ambulation therapy, gait training. The patient will be continued on TCU till approved number of days. The patient will be continued on medications as per the MAR of today which was reviewed. Dictated and electronically signed, not read. Luis San MD
[2018-10-03] MEDS: guaiFENesin-DM 600-30 mg ER Tab PO SCH ×2 (13:53→17:13)
[2018-10-03 16:55] VITALS: RESP 18
[2018-10-03] MEDS: Morphine 30 mg SR Tab PO PRN (22:16)
[2018-10-04] MEDS: oxyCODONE 30 mg Immediate Release Tab PO PRN ×4 (01:16→23:51)
[2018-10-04] MEDS: Benzocaine/Menthol (Cepacol) Lozenge MT PRN ×6 (01:19→23:51)
[2018-10-04] MEDS: Levalbuterol 0.63 MG/3 ML Inhal Soln UD IH SCH ×4 (03:00→20:01)
[2018-10-04] MEDS: Acetylcysteine 20% Inhal Soln (4ml) IH SCH ×4 (03:00→20:02)
[2018-10-04] MEDS: Pantoprazole 40 mg EC Tab PO SCH (05:52)
[2018-10-04] MEDS: Potassium Chloride 20 mEq ER Tab PO SCH (08:12)
[2018-10-04] MEDS: Lidocaine 5% Patch TD SCH (11:00)
[2018-10-04] MEDS: guaiFENesin-DM 600-30 mg ER Tab PO SCH ×2 (11:00→17:59)
[2018-10-04] MEDS: Magnesium Oxide 400 mg Tab UD PO SCH ×2 (11:00→17:58)
--- NOTE | 2018-10-04 20:39 | PN ---
DATE: 10/04/2018 SUBJECTIVE: The patient is seen today again lying in the bed. The patient was made to sit up without assistance. The patient was able to sit up without assistance. The patient has complained of chronic back pain where the patient had kyphoplasty, but there was no abnormality noted on the spine area. Overnight nurse's notes were reviewed. The patient is also complaining of neck pain, back pain, diffuse pain all over. PHYSICAL EXAMINATION: VITAL SIGNS: T-max 98.2, heart rate 74, 78, blood pressure 95/ 65. Repeat blood pressure 130/85, respiration 18, O2 sat 95% to 99%. HEENT: Head is normocephalic, atraumatic. HEENT examination shows pink conjunctivae. Anicteric sclerae. No oropharyngeal lesion. NECK: No neck rigidity. CHEST: Kyphosis. SPINE: Shows dressings which appears to be clear without any drainage. No spinal tenderness noted. CARDIOPULMONARY: S1, S2, regular rhythm. LUNGS: Shows no audible crackle, rales or wheezing. ABDOMEN: Soft. Positive bowel sound. No palpable hepatosplenomegaly. GENITALIA: Male. RECTAL: Deferred. EXTREMITIES: Shows no pitting edema. No calf tenderness. No Homans' sign. NEUROLOGIC: The patient is alert, awake, responsive. He is able to move upper lower extremity without assistance. Gait examination is not tested. VASCULAR: Palpable pulses. The patient is able to sit up without any assistance from lying position to sitting up. MUSCULOSKELETAL: Shows a body mass index of . NEUROLOGIC: The patient is alert, awake, responsive, oriented x3. IMPRESSION: 1. Deconditioning. 2. Gait dysfunction. 3. Chronic narcotic-dependent pain syndrome. 4. Anxiety disorder. 5. Hypokalemia. 6. Hyperlipidemia. 7. Hypomagnesemia. 8. Deconditioning. 9. History of extremely poor compliance and noncompliance. 10. History of pulmonary embolism and deep venous thrombosis. 11. History of severe noncompliance with medication and anticoagulation. PLAN: At this time, the patient has been ordered repeat labs for the morning. Current medications, the patient is on Xopenex and Mucomyst nebulizer every 6 hours, Ativan at event 1 mg IV every 4 p.r.n. Cepacol lozenges every 2 hours p.r.n., Ecotrin 81 mg daily, heparin 5000 subcutaneously every 8, K-Dur 20 mEq daily, Lidoderm 5% patch to the affected area of pain, Lipitor 40 mg daily, magnesium oxide 400 mg twice a day, morphine extended release 90 mg every 12. The patient is on Mucinex DM 1 tablet b.i.d., oxycodone immediate release 30 mg every 6 p.r.n., Protonix 40 mg daily. The patient is on GI, DVT prophylaxis, Singulair 10 mg daily Tylenol 650 mg p.o. suppository every 6 p.r.n., Xanax 2 mg t.i.d. p.r.n., Xopenex nebulizer 0.63 every 6 hours, Zofran 4 mg IV every 6 p.r.n. The patient has been ordered SCDs, CLIFFORD stockings, out of bed to chair, daily physical therapy, occupational therapy. The patient has been advised to participate to the maximum with physical therapy, ambulation therapy, gait training which he acknowledged understand. At present, the patient was also advised to contact Rewind Operator regarding the needs of the discharge planning. Dictated and electronically signed, not read. Luis San MD
[2018-10-04] MEDS: Morphine 30 mg SR Tab PO PRN (20:42)
[2018-10-05] MEDS: Acetylcysteine 20% Inhal Soln (4ml) IH SCH ×4 (02:03→20:45)
[2018-10-05] MEDS: Levalbuterol 0.63 MG/3 ML Inhal Soln UD IH SCH ×4 (02:03→20:45)
[2018-10-05] MEDS: Benzocaine/Menthol (Cepacol) Lozenge MT PRN ×2 (05:41→23:06)
[2018-10-05] MEDS: oxyCODONE 30 mg Immediate Release Tab PO PRN ×3 (05:42→21:11)
[2018-10-05] MEDS: Pantoprazole 40 mg EC Tab PO SCH (05:43)
[2018-10-05 07:06] LABS: BASO # 0.06 K/mm3 (0.0-2.0); BASO % 0.7 % (0.0-3.0); EOS # 0.4 (0.0-0.7); EOS % 4.4 % (1.5-5.0); HEMOGLOBIN 10.7 g/dL (14.0-18.0); LYMPH # 2.1 (1.2-3.4); LYMPH % 25.5 % (22.0-35.0); MEAN CELL VOLUME 93.4 fl (80.0-105.0); MEAN CORPUSCULAR HEMOGLOBIN 29.4 pg (25.0-35.0); MEAN CORPUSCULAR HGB CONC 31.5 g/dl (31.0-37.0); MEAN PLATELET VOLUME 9.7 fl (7.0-11.0); MONO # 0.7 (0.1-0.6); MONO % 8.8 % (1.0-6.0); RBC 3.64 10^6/uL (3.5-6.1); RED CELL DISTRIBUTION WIDTH 13.8 % (11.5-14.5); WHITE BLOOD COUNT 8.1 10^3/uL (4.5-11.0)
[2018-10-05 07:34] LABS: ALB/GLOB RATIO 1.2 (1.1-1.8); ALBUMIN 3.8 g/dL (3.0-4.8); ALT/SGPT 12 U/L (7-56); AST/SGOT 27 U/L (17-59); BILIRUBIN,DIRECT 0.1 mg/dL (0.0-0.4); BLOOD UREA NITROGEN 24 mg/dL (7-21); GFR NON-AFRICAN AMERICAN > 60
[2018-10-05] MEDS: Potassium Chloride 20 mEq ER Tab PO SCH (08:04)
[2018-10-05] MEDS: Lidocaine 5% Patch TD SCH (10:24)
[2018-10-05] MEDS: Magnesium Oxide 400 mg Tab UD PO SCH ×2 (10:24→18:10)
[2018-10-05] MEDS: guaiFENesin-DM 600-30 mg ER Tab PO SCH ×2 (10:25→18:11)
[2018-10-05] MEDS: Morphine 30 mg SR Tab PO PRN (21:26)
--- NOTE | 2018-10-05 22:17 | PN ---
DATE: 10/05/2018 SUBJECTIVE: The patient is seen again lying in the bed in room 322, bed 1. The patient is alert, awake, responsive, just finished eating breakfast. Overnight nurse's notes were reviewed. The patient was found to be without any adverse events overnight. PHYSICAL EXAMINATION: VITAL SIGNS: T-max 98.9, 98.1, heart rate 86, blood pressure 107/75, 96/ 61, respiration 18, O2 sat 95%. HEENT: Normocephalic, atraumatic. HEENT examination shows pinkish conjunctivae. Anicteric sclerae. No oropharyngeal lesion. NECK: No neck rigidity. CHEST: Kyphosis. CARDIOPULMONARY: S1, S2, regular rhythm. Questionable soft systolic murmur at the left sternal border, right second intercostal space, left second intercostal space. LUNGS: Shows no audible crackle, rales or wheezing. ABDOMEN: Soft. Positive bowel sounds. No palpable hepatosplenomegaly. GENITALIA: Male. RECTAL: Deferred. EXTREMITIES: Shows No pitting edema, no calf tenderness, no Homans' sign. MUSCULOSKELETAL: Shows a body mass index of 25.4. NEUROLOGIC: The patient is alert, awake, oriented x3. He is able to move upper and lower extremity without assistance. Gait examination is not tested. VASCULAR: Palpable pulses. PSYCHIATRIC: Positive for anxiety disorder. DIAGNOSTICS: On 10/05/2018, WBC 8.1, hemoglobin and hematocrit 10.7, 34.0, platelet 417. Sodium 138, potassium 4.0, chloride 97, CO2 33, anion gap 11, BUN 24, creatinine 0.8, GFR greater than 60, glucose 98, calcium 9.0, phosphorus 4.8, magnesium 1.9. LFTs are normal. IMPRESSION: 1. Gait dysfunction. 2. Deconditioning. 3. History of poor compliance and noncompliance. 4. Questionable seizure-like activity versus questionable postictal state with episodic combativeness, confusion and altered mental status. 5. Questionable upper and lower extremity tremors. 6. Encephalopathy with confusion (resolved). 7. Hypokalemia. 8. Status post increased anion gap, metabolic acidosis. 9. Hyperphosphatemia. 10. Proteinuria, ketonuria, microscopic hematuria, pyuria, bacteriuria. 11. Urine drug screen positive for opiates and benzodiazepine. 12. Hyperglycemia. 13. Mild normocytic anemia. 14. Status post leukocytosis with granulocytosis. 15. Right bundle-branch block. 16. Sinus tachycardia. 17. Generalized cerebral cortical atrophy of the brain. 18. Bibasilar air space opacities and questionable right lower lobe pneumonia with a possible right lower lobe mass-like appearance. 19. Cardiomegaly. 20. Pancreatic atrophy. 21. Left renal midportion hypodensities. 22. Sigmoid diverticulosis. 23. Bilateral inguinal lymphadenopathy. 24. Left hip fusion and left hip open reduction and internal fixation. 25. Degenerative joint disease of spine. 26. Osteopenia. 27. Lumbar and thoracic spine compression fractures. 28. History of recurrent fall. 29. Chronic narcotic-dependent pain syndrome. 30. History of possible narcotic abuse and dependence. 31. Bilateral carotid siphon dense atheromatous calcific plaque. 32. History of constipation, hypomagnesemia, history of insomnia, history of hypovitaminosis D, history of anxiety, history of dyslipidemia. 33. Status post thoracic 6, thoracic 8 kyphoplasty. 34. History of multiple thoracic and lumbar spine compression deformity. 35. Mild prerenal kidney injury. 36. Hypomagnesemia. 37. Misuse and abuse of narcotic pain killers and benzodiazepine. PLAN: At this time, the patient will be continued on daily physical therapy, occupational therapy, daily physical therapy, ambulation therapy, gait training while the patient is on Transitional Care Unit. CURRENT MEDICATIONS: Mucomyst nebulizer 20% 4 mL every 6 hours with Xopenex nebulizer 0.63 mg every 6 hours, Ativan 1 mg IV every 4 p.r.n. Cepacol lozenges every 2 p.r.n., Ecotrin 81 mg daily, heparin 5000 subcutaneously every 8, K-Dur 20 mEq daily, Lidoderm 5% patch to the affected area, Lipitor 40 mg daily, magnesium oxide 400 mg twice a day, morphine extended release tablet 90 mg twice a day, Mucinex DM 1 tablet twice a day, oxycodone immediate release 30 mg p.o. every 6 hours . p.r.n., Protonix 40 mg daily, Singulair 10 mg daily, Tylenol 650 mg p.o. suppository every 6 and 4 hours p.r.n., Xanax 2 mg t.i.d. p.r.n., Xopenex nebulizer 0.63 mg every 6 hours, Zofran 4 mg IV every 4 p.r.n. At present, the patient is to continue on TCU till approved number of days. The patient will be considered for discharge home upon completion of TCU stay. Dictated and electronically signed, not read. Luis San MD
[2018-10-06] MEDS: Levalbuterol 0.63 MG/3 ML Inhal Soln UD IH SCH ×3 (01:45→14:17)
[2018-10-06] MEDS: Acetylcysteine 20% Inhal Soln (4ml) IH SCH ×3 (01:45→14:16)
[2018-10-06] MEDS: oxyCODONE 30 mg Immediate Release Tab PO PRN (03:48)
[2018-10-06] MEDS: Benzocaine/Menthol (Cepacol) Lozenge MT PRN (05:43)
[2018-10-06] MEDS: Pantoprazole 40 mg EC Tab PO SCH (05:43)
[2018-10-06] MEDS: Potassium Chloride 20 mEq ER Tab PO SCH (09:55)
[2018-10-06] MEDS: Magnesium Oxide 400 mg Tab UD PO SCH (09:56)
[2018-10-06] MEDS: Lidocaine 5% Patch TD SCH (09:56)
[2018-10-06] MEDS: guaiFENesin-DM 600-30 mg ER Tab PO SCH (09:56)
[2018-10-06] MEDS: Morphine 30 mg SR Tab PO PRN (10:00)
[2018-10-06 11:05] VITALS: BP 105/67; PULSE 68; TEMP 97.7; O2SAT 94
--- NOTE | 2018-10-06 23:37 | DS ---
FINAL PROGRESS NOTE AND DISCHARGE SUMMARY HISTORY OF PRESENT ILLNESS: The patient is being discharged from Transitional Care Unit. The patient was discharged from room 322, bed 1. PHYSICAL EXAMINATION: VITAL SIGNS: T-max 97.7, pulse 68, blood pressure 105/67, respirations 18, and O2 sat 94%. Overnight nurse's notes were reviewed. GENERAL: In the last 24 hours, the patient was alert, awake, and oriented x3. No complaints were documented or reported or called by the nurses overnight. HEENT: Head; normocephalic and atraumatic. HEENT examination shows pinkish pale conjunctivae. Anicteric sclerae. No oropharyngeal lesion. NECK: No neck rigidity. CHEST: Kyphosis. LUNGS: Show no audible crackles, rales or wheezing. CARDIOVASCULAR: S1 and S2, regular rhythm. Questionable soft systolic murmur left sternal border, right second intercostal space, left second intercostal space. ABDOMEN: Soft. Positive bowel sounds. GENITALIA: Male. RECTAL: Deferred. EXTREMITIES: Show no pitting edema. No calf tenderness. No Homans' sign. NEUROLOGIC: The patient is alert, awake, and oriented x3, is able to move upper lower extremity without assistance. Gait examination is not tested. Motor strength is 5/5. VASCULAR: Palpable pulses. Cranial nerves II through XII limited. DIAGNOSTIC DATA: During this hospitalization, all reviewed. The patient is cleared for discharge by all subspecialty. FINAL IMPRESSION, PLAN, AND DISCHARGE DIAGNOSES. 1. Gait dysfunction. 2. Deconditioning. 3. Poor compliance, noncompliance. 4. Status post questionable seizure-like activity versus questionable postictal state with episodic combativeness, confusion and altered mental status. 5. Questionable upper and lower extremity tremors (resolved). 6. Status post encephalopathy and confusion. 7. Hypokalemia. 8. Episodic hypotension. 9. Right bundle-branch block. 10. Chronic narcotic-dependent pain syndrome. 11. Chronic narcotic user, abuser, and misuser. 12. Normocytic anemia. 13. Hypomagnesemia. 14. Hyperphosphatemia. 15. Anxiety disorder. 16. History of constipation. 17. Degenerative joint disease of the spine. 18. Multilevel lumbar and thoracic spine compression fracture. 19. Thoracic 6 and thoracic 8 kyphoplasty. 20. Hyperlipidemia. The patient has completed the duration of TCU stay. The patient has been cleared for discharge. DISCHARGE MEDICATIONS: The patient is to resume on Xanax 2 mg t.i.d. p.r.n., Ecotrin 81 mg daily, Lipitor 40 mg daily, vitamin D 50,000 units weekly, Colace 100 mg daily, magnesium oxide 400 mg twice a day, Remeron 15 mg at bedtime p.r.n. to resume, Singulair 10 mg daily, morphine 90 mg p.o. every 12 hours, oxycodone immediate release 30 mg every 6 hours p.r.n., K-Dur 20 mEq daily, and Senokot 8.6 mg twice a day for constipation. DISCHARGE INSTRUCTIONS: The patient is discharged home with discharge follow up with the pain management physician within 48 hours for narcotic refill and follow up with Dr. San within 1 week. Discharge medications as per updated ambulatory orders plus new script. The patient was advised no driving, no alcohol, and no smoking. Time spent in the discharge process 45 minutes. Dictated and electronically signed, not read. Luis San MD
== END 2018-10-06 15:19 | disposition home or self-care (01) | DRG 92 ==
LOC: TRCU 20:55
PROVIDERS: ADMIT Internal Medicine; ATTEND Internal Medicine
PROC: F07Z9FZ Gait Training/Functional Ambulation Treatment using Assistive, Adaptive, Supportive or Protective Equipment (ICD-10-PCS; principal; 2018-09-29)
PROC: F08Z4FZ Home Management Treatment using Assistive, Adaptive, Supportive or Protective Equipment (ICD-10-PCS; 2018-09-29)
PROC: 3E0F7GC Introduction of Other Therapeutic Substance into Respiratory Tract, Via Natural or Artificial Opening (ICD-10-PCS; 2018-09-29)
DX: R26.9 Unspecified abnormalities of gait and mobility (principal); G93.40 Encephalopathy, unspecified; M48.54XA Collapsed vertebra, not elsewhere classified, thoracic region, initial encounter for fracture; M48.56XA Collapsed vertebra, not elsewhere classified, lumbar region, initial encounter for fracture; J98.11 Atelectasis; I45.10 Unspecified right bundle-branch block; I11.9 Hypertensive heart disease without heart failure; D64.9 Anemia, unspecified; E55.9 Vitamin D deficiency, unspecified; E78.5 Hyperlipidemia, unspecified; E83.42 Hypomagnesemia; E87.6 Hypokalemia; F41.9 Anxiety disorder, unspecified; G89.4 Chronic pain syndrome; M51.34 Other intervertebral disc degeneration, thoracic region; M51.36 Other intervertebral disc degeneration, lumbar region; K57.30 Diverticulosis of large intestine without perforation or abscess without bleeding; K59.00 Constipation, unspecified; G47.00 Insomnia, unspecified; Z91.19 Patient's noncompliance with other medical treatment and regimen; Z86.711 Personal history of pulmonary embolism; Z86.718 Personal history of other venous thrombosis and embolism; Z79.01 Long term (current) use of anticoagulants

== ENCOUNTER 2018-12-23 15:10 | Inpatient (IN) | payer MEDICARE, OTHER ==
[2018-12-23 15:41] VITALS: BMI 25.1
[2018-12-23 16:21] LABS: BASO # 0.05 K/mm3 (0.0-2.0); BASO % 0.6 % (0.0-3.0); EOS % 0.1 % (1.5-5.0); HEMOGLOBIN 13.4 g/dL (14.0-18.0); LYMPH # 1.4 (1.2-3.4); LYMPH % 16.9 % (22.0-35.0); MEAN CELL VOLUME 88.7 fl (80.0-105.0); MEAN CORPUSCULAR HEMOGLOBIN 29.7 pg (25.0-35.0); MEAN CORPUSCULAR HGB CONC 33.5 g/dl (31.0-37.0); MEAN PLATELET VOLUME 9.5 fl (7.0-11.0); MONO # 0.5 (0.1-0.6); MONO % 5.5 % (1.0-6.0); RBC 4.51 10^6/uL (3.5-6.1); RED CELL DISTRIBUTION WIDTH 13.9 % (11.5-14.5); WHITE BLOOD COUNT 8.3 10^3/uL (4.5-11.0)
[2018-12-23 16:34] LABS: ALB/GLOB RATIO 1.4 (1.1-1.8); ALBUMIN 4.9 g/dL (3.0-4.8); AST/SGOT 32 U/L (17-59); BLOOD UREA NITROGEN 16 mg/dL (7-21); CALCIUM 9.3 mg/dL (8.4-10.5); GFR NON-AFRICAN AMERICAN > 60
[2018-12-23 16:39] LABS: ALT/SGPT < 6 U/L (7-56)
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
[2018-12-23] MEDS ORDERED: Oxycodone/Acetaminophen 5/325 mg Tab PO STA (17:47)
[2018-12-23 18:08] LABS: URINE APPEARANCE CLEAR (CLEAR); URINE BILIRUBIN NEGATIVE (NEGATIVE); URINE BLOOD SMALL (NEGATIVE); URINE COLOR YELLOW (YELLOW); URINE GLUCOSE (UA) NEGATIVE (NEGATIVE); URINE LEUKOCYTE ESTERASE NEGATIVE Leu/uL (NEGATIVE); URINE PROTEIN 30 mg/dL (<30 mg/dL); URINE UROBILINOGEN 0.2 E.U./dL (<1 E.U./dL)
[2018-12-23 18:09] LABS: INR 1.17
[2018-12-23] MEDS ORDERED: Magnesium Sulfate 2 gm/50 ml 2 GM/50 ML BAG IVPB ONE (18:43)
[2018-12-23] MEDS ORDERED: levETIRAcetam 1,000 MG in Sodium Chloride 0.9% 100 ML IVPB ONE (18:47)
[2018-12-23 19:13] LABS: URINE BACTERIA MOD /hpf; URINE EPITHELIAL CELLS 0 - 2 /hpf (0-5); URINE WBC 0 - 2 /hpf (0-6)
[2018-12-23] MEDS ORDERED: Potassium Chloride 20 mEq ER Tab PO STA ×2 (19:51→20:08)
[2018-12-23] MEDS ORDERED: Sodium Chloride 0.9% 1,000 ML IV SCH (20:00)
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
[2018-12-23] MEDS ORDERED: Morphine 30 mg SR Tab PO PRN (20:13)
[2018-12-23] MEDS ORDERED: oxyCODONE 30 mg Immediate Release Tab PO PRN (20:15)
[2018-12-23] MEDS ORDERED: Morphine 30 mg SR Tab PO SCH ×2 (20:20→22:00)
[2018-12-23 20:41] LABS: BARBITURATES, UR NEGATIVE (NEGATIVE); BENZODIAZEPINES, UR POSITIVE (NEGATIVE); OPIATES, UR POSITIVE (NEGATIVE); PHENCYCLIDINE, UR NEGATIVE (NEGATIVE)
[2018-12-23] MEDS: oxyCODONE 30 mg Immediate Release Tab PO PRN (21:08)
[2018-12-23] MEDS: Sodium Chloride 0.9% 1,000 ML IV SCH (21:10)
[2018-12-23 21:40] LABS: TROPONIN I < 0.01 ng/mL
[2018-12-23] MEDS ORDERED: levETIRAcetam 500 MG in Sodium Chloride 0.9% 100 ML IVPB SCH (22:00)
[2018-12-23] MEDS: POLYETHYLENE GLYCOL 3350 17 GM/Dose PACKET PO SCH (22:30)
[2018-12-23] MEDS: Morphine 30 mg SR Tab PO SCH (22:30)
[2018-12-23] MEDS: levETIRAcetam 500mg IVPB 500 MG/100 ML BAG IVPB SCH (22:30)
--- NOTE | 2018-12-23 23:16 | CT ---
Date of service: 12/23/2018 PROCEDURE: CT HEAD WITHOUT CONTRAST. HISTORY: seizure COMPARISON: Comparison is made to the previous study dated 09/25/2018 TECHNIQUE: Axial computed tomography images were obtained through the head/brain without intravenous contrast. Radiation dose: Total exam DLP = 1087.54 mGy-cm. This CT exam was performed using one or more of the following dose reduction techniques: Automated exposure control, adjustment of the mA and/or kV according to patient size, and/or use of iterative reconstruction technique. FINDINGS: HEMORRHAGE: No intracranial hemorrhage. BRAIN: No mass effect or edema. Mild volume loss and mild chronic microvascular white matter ischemic changes are again noted. VENTRICLES: Unremarkable. No hydrocephalus. CALVARIUM: Again noted is heterogeneous sclerotic bony lesion at the lateral aspect of the left maxillary sinus extending to the lateral wall of the left orbit likely represent benign lesions such as fibrous dysplasia. PARANASAL SINUSES: Unremarkable as visualized. No significant inflammatory changes. MASTOID AIR CELLS: Unremarkable as visualized. No inflammatory changes. OTHER FINDINGS: None. IMPRESSION: No evidence of acute intracranial hemorrhage intracranial collection mass effect or midline shift. Preliminary report was submitted by [facility] Radiology contains concordant findings.
[2018-12-24 03:55] LABS: BASO # 0.02 K/mm3 (0.0-2.0); BASO % 0.2 % (0.0-3.0); EOS % 0.2 % (1.5-5.0); HEMOGLOBIN 11.9 g/dL (14.0-18.0); LYMPH # 1.8 (1.2-3.4); LYMPH % 17.5 % (22.0-35.0); MEAN PLATELET VOLUME 9.2 fl (7.0-11.0); MONO # 0.6 (0.1-0.6); MONO % 5.6 % (1.0-6.0); RBC 4.1 10^6/uL (3.5-6.1); RED CELL DISTRIBUTION WIDTH 13.9 % (11.5-14.5); WHITE BLOOD COUNT 10.5 10^3/uL (4.5-11.0)
[2018-12-24 03:59] LABS: ALB/GLOB RATIO 1.2 (1.1-1.8); ALT/SGPT 13 U/L (7-56); AST/SGOT 30 U/L (17-59); BILIRUBIN,DIRECT 0.1 mg/dL (0.0-0.4); BLOOD UREA NITROGEN 14 mg/dL (7-21); CALCIUM 8.4 mg/dL (8.4-10.5); GFR NON-AFRICAN AMERICAN > 60; HDL CHOLESTEROL 72 mg/dL (29-60)
[2018-12-24 04:10] LABS: LDL CHOLESTEROL 70 mg/dL (0-129); TROPONIN I < 0.01 ng/mL
[2018-12-24] MEDS: oxyCODONE 30 mg Immediate Release Tab PO PRN ×3 (05:30→20:33)
--- NOTE | 2018-12-24 05:52 | RAD ---
Date of service: 12/23/2018 HISTORY: seizure COMPARISON: Comparison is made with 09/25/2018 TECHNIQUE: 1 view obtained. FINDINGS: LUNGS: No active pulmonary disease. PLEURA: No significant pleural effusion identified, no pneumothorax apparent. CARDIOVASCULAR: No aortic atherosclerotic calcification present. Normal cardiac size. No pulmonary vascular congestion. OSSEOUS STRUCTURES: No significant abnormalities. VISUALIZED UPPER ABDOMEN: Normal. OTHER FINDINGS: None. IMPRESSION: No active disease.
[2018-12-24] MEDS: Pantoprazole 40 mg EC Tab PO SCH (06:04)
[2018-12-24] MEDS ORDERED: Potassium Chloride 20 mEq ER Tab PO ONE ×2 (06:49→16:30)
[2018-12-24] MEDS ORDERED: Gadodiamide 287 MG/ML VIAL (15ML) IV ONE (08:50)
[2018-12-24] MEDS: POLYETHYLENE GLYCOL 3350 17 GM/Dose PACKET PO SCH ×2 (09:55→17:26)
[2018-12-24] MEDS: Magnesium Oxide 400 mg Tab UD PO SCH ×2 (09:55→17:27)
[2018-12-24] MEDS: Enoxaparin 40 mg Syringe SC SCH (09:55)
[2018-12-24] MEDS: Morphine 30 mg SR Tab PO SCH ×2 (09:56→21:54)
[2018-12-24] MEDS: levETIRAcetam 500mg IVPB 500 MG/100 ML BAG IVPB SCH ×2 (09:57→21:45)
--- NOTE | 2018-12-24 10:22 | MRI ---
Date of service: 12/24/2018 PROCEDURE: MRI BRAIN WITH AND WITHOUT CONTRAST HISTORY: ??SYNCOPE/SEIZURE COMPARISON: None available. TECHNIQUE: Multiplanar, multisequence MR images of the brain were obtained with and without intravenous contrast enhancement. 14 cc of Omniscan FINDINGS: HEMORRHAGE: None DWI: No evidence of an acute or early subacute infarction. BRAIN PARENCHYMA: No mass,mass effect or edema. No atrophy or chronic microvascular ischemic changes. ENHANCEMENT: No abnormal intracranial enhancement. VENTRICLES: Unremarkable. No hydrocephalus. CRANIUM: Unremarkable. ORBITS: Grossly unremarkable. PARANASAL SINUSES/MASTOIDS: Clear VASCULAR SYSTEM: Skull base flow voids intact. OTHER FINDINGS: None . IMPRESSION: Unremarkable pre and post contrast enhanced MRI of the brain.
[2018-12-24 11:07] LABS: TROPONIN I < 0.01 ng/mL
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
--- NOTE | 2018-12-24 14:25 | CP.PCM.PCO ---
Physician Communication Note - Physician Communication Note Physician Communication Note: EEG, VEEG pending
--- NOTE | 2018-12-24 15:26 | CON ---
DATE: 12/24/2018 HISTORY OF PRESENT ILLNESS: This is a 58-year-old male with the past medical history of DVT and PE 2 months ago on Xarelto, COPD, chronic arthritis, seizure who presents to the hospital and no tongue bite and no urinary incontinence and we were called to evaluate the patient. The patient noted to have seizure like episode and was given 2 mg of Ativan. No tongue bite. No urinary incontinence. Past medical history of DVT and COPD, chronic back pain and anxiety with opiate. PAST MEDICAL HISTORY: As above. ALLERGIES: TO IBUPROFEN, NAPROXEN AND CELEBREX. PHYSICAL EXAMINATION: VITAL SIGNS: Blood pressure 127/78. HEENT: Normocephalic and atraumatic. NECK: Supple. NEURO: Alert, awake and oriented x3. No aphasia. Cranial nerve II through XII were tested. Pupil reactive. EOM intact. Visual field full. No facial asymmetry. Tongue midline. Motor examination, moves all the extremities equally. Tone normal. Deep tendon reflexes 1+. Both plantars are downgoing. Sensory appears intact. Cerebellar, gait deferred. LABORATORY DATA: WBC 8.3, hemoglobin 13.4, hematocrit 40 and platelet 449. Sodium 141, potassium 3.4, CO2 of 24, chloride 102, glucose 136, BUN 16, creatinine 0.6. IMPRESSION AND PLAN: Workup is in progress. MRI of the head was negative. CAT scan of the head is negative. Continue present management. We will followup. Ernst Snyder MD
--- NOTE | 2018-12-24 16:00 | PN ---
DATE: 12/24/2018 LOCATION: The patient is seen in room 363, bed 1. SUBJECTIVE: Overnight nurse's notes were reviewed. There was no documented witnessed seizure noted. The patient stayed stable, requesting pain medication and Xanax. The patient's pain medications and Xanax was ordered with holding parameters. PHYSICAL EXAMINATION: VITAL SIGNS: In the last 12 to 24 hours, T-max 98.6. Telemetry, normal sinus rhythm, heart rate 85 to 92, blood pressure 128/78, respirations 16, O2 sat 95%. HEENT: Head, normocephalic and atraumatic. Pinkish pale conjunctivae. Anicteric sclerae. No oropharyngeal lesion. Dry oral mucosa. NECK: No neck rigidity. CHEST: Kyphosis. LUNGS: No audible crackle, rales, or wheezing. CARDIOVASCULAR: S1, S2, regular rhythm. Questionable soft systolic murmur at left sternal border, right second intercostal space, left second intercostal space. ABDOMEN: Soft. Positive bowel sounds. No palpable hepatosplenomegaly. GENITALIA: Male. RECTAL: Examination is deferred. EXTREMITIES: No pitting edema, no calf tenderness, no Homans sign. NEUROLOGIC: The patient is alert, awake, responsive. MUSCULOSKELETAL: As per the body mass index. GAIT: Not tested. DIAGNOSTICS: From 12/24/2018, WBC 10.5, hemoglobin and hematocrit 11.9 and 36.1, platelet 381. Sodium 141, potassium 3.7 which is low normal, chloride 107, CO2 of 28, BUN 14, creatinine 0.5, glucose 92, calcium 8.4, phosphorus 4.7, magnesium 2.3. Urine drug screen positive for opiate and benzos. CAT scan of the head shows microvascular ischemic disease of the brain and questionable fibrous dysplasia of the left maxillary sinus. IMPRESSION AND PLAN: 1. Witnessed seizure versus breakthrough seizure. 2. Questionable syncope. 3. Anemia. 4. Hypokalemia. 5. Proteinuria. 6. History of narcotic-dependent chronic pain syndrome. 7. Narcotic-induced and opioid-induced chronic constipation. 8. Microvascular ischemic disease of the brain. 9. Left maxillary sinus fibrous dysplasia, questionable. 10. Chronic opioid-dependent pain syndrome. 11. Anxiety disorder. 12. Normocytic anemia. 13. Borderline hypokalemia. 14. Questionable withdrawal seizure. 15. History of poor compliance. Plan at this time, the patient is awaiting for the MRI of the brain and EEG. The patient at present is awaiting Neurology and Cardiology evaluation and further diagnostic therapeutic intervention as discussed above. The patient has been ordered repeat labs. The patient's current medications will be as per the MAR of today, which is reviewed. The patient will undergo further diagnostic therapeutic intervention as ordered. The patient will be continued on neuro checks, seizure precaution. At present, the patient will be continued on pharmacological, non-pharmacological, GI and DVT prophylaxis. The patient has been ordered out of bed to chair, physical therapy, occupational therapy, ambulation therapy, and TCU evaluation. The patient's further management will be dependent upon the patient's clinical condition, hemodynamic status, and as per the patient's response to therapeutic intervention as per the patient's diagnostic test results and as per recommendation by all the physicians involved in the care of the patient. Dictated and electronically signed, not read. Luis San MD
[2018-12-24 17:18] LABS: RAPID PLASMA REAGIN NONREACTIVE (NONREACTIVE)
--- NOTE | 2018-12-24 19:07 | CARD ---
APPROVED REPORT Date of service: 12/23/2018 EKG Measurement Heart [id number] <Conclusion> Normal sinus rhythm Left axis deviation Right bundle branch block Inferior infarct, age undetermined Abnormal ECG
[2018-12-24] MEDS: Sodium Chloride 0.9% 1,000 ML IV SCH (21:44)
[2018-12-25] MEDS: oxyCODONE 30 mg Immediate Release Tab PO PRN ×3 (02:28→23:49)
[2018-12-25] MEDS: Pantoprazole 40 mg EC Tab PO SCH (06:38)
[2018-12-25 06:42] LABS: BASO # 0.05 K/mm3 (0.0-2.0); BASO % 0.8 % (0.0-3.0); EOS # 0.3 (0.0-0.7); EOS % 4.4 % (1.5-5.0); HEMOGLOBIN 10.7 g/dL (14.0-18.0); LYMPH # 2.2 (1.2-3.4); LYMPH % 33.4 % (22.0-35.0); MEAN CELL VOLUME 90.3 fl (80.0-105.0); MEAN CORPUSCULAR HEMOGLOBIN 28.8 pg (25.0-35.0); MEAN CORPUSCULAR HGB CONC 31.8 g/dl (31.0-37.0); MEAN PLATELET VOLUME 9.2 fl (7.0-11.0); MONO # 0.5 (0.1-0.6); MONO % 8.2 % (1.0-6.0); RBC 3.72 10^6/uL (3.5-6.1); RED CELL DISTRIBUTION WIDTH 14.1 % (11.5-14.5); WHITE BLOOD COUNT 6.6 10^3/uL (4.5-11.0)
[2018-12-25 07:39] LABS: ALB/GLOB RATIO 1.2 (1.1-1.8); ALBUMIN 3.4 g/dL (3.0-4.8); ALT/SGPT 9 U/L (7-56); AST/SGOT 20 U/L (17-59); BILIRUBIN,DIRECT 0.1 mg/dL (0.0-0.4); BLOOD UREA NITROGEN 17 mg/dL (7-21); CALCIUM 8.1 mg/dL (8.4-10.5); GFR NON-AFRICAN AMERICAN > 60
[2018-12-25] MEDS: Magnesium Oxide 400 mg Tab UD PO SCH ×2 (09:15→17:18)
[2018-12-25] MEDS: Enoxaparin 40 mg Syringe SC SCH (09:16)
[2018-12-25] MEDS: levETIRAcetam 500mg IVPB 500 MG/100 ML BAG IVPB SCH ×2 (09:16→21:32)
[2018-12-25] MEDS: POLYETHYLENE GLYCOL 3350 17 GM/Dose PACKET PO SCH ×2 (09:16→17:18)
[2018-12-25] MEDS: Morphine 30 mg SR Tab PO SCH ×2 (09:28→21:31)
--- NOTE | 2018-12-25 15:58 | PN ---
DATE: 12/25/2018 SUBJECTIVE: The patient is in room 363, bed 1. Overnight nurse's notes were reviewed. The patient finally underwent the MRI of the brain, which the patient tolerated. Results pending. PHYSICAL EXAMINATION VITAL SIGNS: T-max 98, pulse 64. Telemetry shows sinus rhythm, blood pressure 102/67, respirations 18, O2 sat 98%. HEENT: Head: Normocephalic, atraumatic. HEENT examination shows pinkish pale conjunctivae. Anicteric sclerae. No oropharyngeal lesion. NECK: No neck rigidity. CHEST: Kyphosis. LUNGS: Show no audible crackles, rales or wheezing. CARDIOVASCULAR: S1, S2, regular rhythm. Questionable soft systolic murmur, left sternal border, right second intercostal space, left second intercostal space. ABDOMEN: Soft, positive bowel sound. No palpable hepatosplenomegaly. GENITALIA: Male. RECTAL: Deferred. NEUROLOGIC: Gait examination is not tested. Motor strength is 5/5 in upper and lower extremities. Cranial nerves II-XII are intact and limited. DIAGNOSTICS: Lab data from 10/27; WBC 6.6, hemoglobin and hematocrit 10.7 and 33.6, platelets 321. Sodium 139, potassium 3.8, chloride 103, CO2 30, BUN 17, creatinine 0.7, glucose 96, calcium 8.1, phosphorus 4.5, magnesium 1.9. LFTs are within normal limits. IMPRESSION 1. Witness seizure, etiology undetermined. 2. Questionable withdrawal seizure. 3. Opioid dependent chronic pain syndrome. 4. Gait dysfunction. 5. Mild normocytic anemia. 6. Opioid-induced constipation. 7. Questionable syncopal seizure. 8. Anemia. 9. Hypokalemia. 10. Proteinuria. 11. Urine drug screen positive for opiates and benzodiazepine. 12. Microvascular ischemic disease of the brain. 13. Left maxillary sinus fibrous dysplasia. 14. Chronic narcotic and opioid dependent pain syndrome. 15. Anxiety disorder. 16. Gait dysfunction. 17. History of right bundle-branch block. 18. Questionable hypotension, probably opiate induced. PLAN: At this time, the patient is awaiting further recommendations from Neurology. Neurology has recommended that the patient's opioid medication should be decreased and to continue Keppra 500 twice a day. The patient was advised to contact the patient's pain management doctor to decrease and taper down the narcotic and opioid dose, because Neurology suspects that the patient's seizure is probably related to opioid use and high doses of opioids, which the patient has been advised. The patient will be continued on all the medications as per the MAR. The patient has been ordered pharmacological, non-pharmacological GI/DVT prophylaxis. The patient has been ordered out of bed to chair, physical therapy, occupational therapy, ambulation therapy, gait training, TCU evaluation has been ordered. At present, the patient's EEG and video-EEG is pending, which will be reviewed when available. The patient updated about his condition, diagnosis, treatment plan, management plan at length, which the patient understands and acknowledges. The patient's EEG will be reviewed when available. Upon review of the EEG completion and the results of the EEG, the patient's further management will be planned. In addition, the patient will be considered for transfer to TCU if accepted; otherwise, the patient will be considered for discharge home. The patient updated about his condition, diagnosis, diagnostic test results, and recommendation by all the physicians involved in the care of the patient, which he acknowledged to understand. Dictated and electronically signed, not read. Luis San MD
[2018-12-25] MEDS: Sodium Chloride 0.9% 1,000 ML IV SCH (17:20)
[2018-12-26] MEDS: Pantoprazole 40 mg EC Tab PO SCH (06:05)
[2018-12-26] MEDS: oxyCODONE 30 mg Immediate Release Tab PO PRN ×2 (06:17→16:50)
[2018-12-26 06:31] LABS: BASO # 0.04 K/mm3 (0.0-2.0); BASO % 0.7 % (0.0-3.0); EOS # 0.4 (0.0-0.7); EOS % 6.3 % (1.5-5.0); HEMOGLOBIN 10.9 g/dL (14.0-18.0); LYMPH # 1.9 (1.2-3.4); LYMPH % 32.3 % (22.0-35.0); MEAN CELL VOLUME 89.9 fl (80.0-105.0); MEAN CORPUSCULAR HEMOGLOBIN 29.1 pg (25.0-35.0); MEAN CORPUSCULAR HGB CONC 32.3 g/dl (31.0-37.0); MEAN PLATELET VOLUME 9.3 fl (7.0-11.0); MONO # 0.5 (0.1-0.6); MONO % 7.8 % (1.0-6.0); RBC 3.75 10^6/uL (3.5-6.1); RED CELL DISTRIBUTION WIDTH 13.8 % (11.5-14.5)
[2018-12-26 07:17] LABS: ALB/GLOB RATIO 1.2 (1.1-1.8); ALBUMIN 3.5 g/dL (3.0-4.8); ALT/SGPT 9 U/L (7-56); AST/SGOT 25 U/L (17-59); BILIRUBIN,DIRECT 0.2 mg/dL (0.0-0.4); BLOOD UREA NITROGEN 13 mg/dL (7-21); CALCIUM 8.4 mg/dL (8.4-10.5); GFR NON-AFRICAN AMERICAN > 60
[2018-12-26] MEDS ORDERED: Magnesium Sulfate 2 gm/50 ml 2 GM/50 ML BAG IVPB ONE (07:53)
[2018-12-26] MEDS ORDERED: Potassium Chloride 20 mEq ER Tab PO ONE (07:53)
[2018-12-26 08:46] VITALS: BP 110/73; RESP 20; TEMP 97.7; O2SAT 94
[2018-12-26] MEDS: Enoxaparin 40 mg Syringe SC SCH (09:49)
[2018-12-26] MEDS: Morphine 30 mg SR Tab PO SCH (09:50)
[2018-12-26] MEDS: Magnesium Oxide 400 mg Tab UD PO SCH ×2 (09:51→16:51)
[2018-12-26] MEDS: POLYETHYLENE GLYCOL 3350 17 GM/Dose PACKET PO SCH ×2 (09:52→16:51)
[2018-12-26] MEDS: levETIRAcetam 500mg IVPB 500 MG/100 ML BAG IVPB SCH (09:52)
--- NOTE | 2018-12-26 09:57 | PCM.VEEG ---
Video EEG - Procedure Start Date: 12/25/18 Start Time: 15:10 End Date: 12/26/18 End Time: 07:25 Technical Summary: DATA ACQUISITION: This was a multichannel inpatient video-EEG, a minimum of 22 channels were uti lized, performed in accordance with recommendations specified by the [place] [employer] Society (Pal Obrien et al. ACNS Guideline 1: Minimum Technical Requirements for Performing Clinical Electroencephalography. Journal of Clinical Neurophysiology 2016;33:303-7). The 10-20 electrode placement system was utilized in accordance with guidelines detailed by the International Federation of Clinical Neurophysiology (Marry Decker et al. The Ten-Twenty Electrode System of the International Federation. Recommendations for the Practice of Clinical Neurophysiology: Guidelines of the International Federation of Clinical Physiology 1999; EEG Suppl. 52.). DATA REVIEW / SPIKE DETECTION / DIGITAL ANALYSIS: The entire EEG was scanned and reviewed. Synchronized audio and video recording were reviewed at the time of each alarm and whenever an abnormality or suspicious activity was noted. The entire recording was analyzed utilizing an automated digital spike and seizure analysis program and all automatic spike and seizure detections were manually reviewed. A compressed spectral array was displayed and reviewed alongside the raw EEG tracings. In addition, further analysis of the EEG was performed when abnormalities were identified, including montage changes, dipole source localization, and frequency band identification. This study was attended 24 hours per day. - Interpretation Description of the study: Indication syncope EEG Finding during wakefulness: During active states, the EEG was characterized by 14-25 Hz, 15-30 uV activity bilaterally in fronto-central regions. Resting wakefulness was characterized by a symmetric posterior dominant rhythm of 9 to 10 Hz, 30-50 uV, which was r eactive to eye opening and closing. Drowsiness was associated with slow roving eye movements, slowing and fragmentation of the posterior dominant rhythm, and bilateral 4-7 Hz, 40-70 uV theta activity, sometimes with a shifting predominance. Hyperventilation and photic stimulation were not performed. EEG Finding during sleep: Light sleep was recorded and was characterized by fronto-central slowing at 5-7 H, 50-125 uV, sharp central vertex waves, bilateral sleep spindles, and K- complexes; shifting asymmetries were evident. Deeper stages of sleep were recorded and were characterized an increasing frequency of 1-4 Hz, 50-100 uV delta activity. REM sleep was also recorded and was characterized by mixed frequency (3-15 Hz) low voltage (< 20 uV) activity with clusters of rapid horizontal and vertical eye movements. There were no significant asymmetries noted during sleep. Interictal non-epileptiform abnormalities: None Interictal epileptiform abnormalities: None Ictal epileptiform abnormalities: None - Impression Impression: This is a normal inpatient Video EEG monitoring study.
[2018-12-26] MEDS ORDERED: CHOLECALCIFEROL 50000 UNIT PO SCH (10:00)
--- NOTE | 2018-12-26 14:04 | DS ---
DATE: 12/26/2018 SUBJECTIVE: The patient is seen lying in the bed in room 363, bed 1. The patient is undergoing video EEG. The patient is alert, awake, responsive. The patient's overnight nurse's notes were reviewed. The patient slept well overnight. PHYSICAL EXAMINATION: VITAL SIGNS: T-max 97.7, pulse 61-64, blood pressure 110/73, respirations 20, O2 sat is 94%-97%-98%. HEENT: Head examination shows a positive EEG electrodes. Pinkish pale conjunctivae. Anicteric sclerae. No oropharyngeal lesion. NECK: No neck rigidity. CHEST: Kyphosis. LUNGS: Shows, no audible crackle, rales, or wheezing. CARDIOVASCULAR: S1, S2 regular rhythm. ABDOMEN: Soft, positive bowel sounds. No palpable hepatosplenomegaly. GENITALIA: Male. RECTAL: Deferred. EXTREMITIES: Shows positive swelling of the lower extremity, missing CLIFFORD stocking despite my multiple orders. NEUROLOGIC: The patient is alert, awake, oriented x3, he is able to move upper and lower extremity without assistance. Gait examination is not tested. VASCULAR: Palpable pulses. DIAGNOSTIC DATA: On 12/26/2018; WBC 6.0, hemoglobin/hematocrit 11/33.7, platelets 336. Sodium 138, potassium 3.9, chloride 98, CO2 of 35, anion gap 9, BUN 13, creatinine 0.7, GFR greater than 60, glucose 92, calcium 8.4, phosphorus 4.3, magnesium 1.9. LFTs are normal. Urine protein 30s, trace ketones, small blood, moderate bacteria. Urine drug screen positive for opiate, positive for benzos. RPR is nonreactive. Lyme titers are pending. Blood and urine cultures are negative and EEG which was done today, started yesterday shows normal inpatient video EEG monitoring. IMPRESSION AND PLAN: 1. Chronic opioid dependent pain syndrome. 2. History of deep venous thrombosis/pulmonary embolism noncompliant with anticoagulation. 3. Witnessed seizure versus syncopal convulsion. 4. Right bundle-branch block. 5. Left axis deviation. 6. Gait dysfunction. 7. Hypovitaminosis D. 8. Opioid induced constipation. 9. Borderline hypokalemia and borderline hypomagnesemia. 10. Hyperlipidemia. 11. Insomnia. 12. Anxiety disorder. 13. Anemia with granulocytosis. 14. Hypokalemia. PLAN: At this time, the patient is being evaluated for TCU evaluation and admission. The patient's current medications are vitamin D 50,000 units weekly, Colace 100 mg daily, Ecotrin 81 mg daily, K-Dur 20 mEq x1 dose Keppra 500 IV every 12, Lipitor 40 mg daily, Lovenox 40 mg subcu daily, magnesium oxide 400 mg twice a day with one magnesium rider ordered MiraLax 17 g twice a day, morphine 90 mg every 12 hours, oxycodone 30 mg p.o. every hours. p.r.n. Protonix 40 mg daily, Remeron 15 mg at bedtime p.r.n., Senokot 8.6 mg twice a day, Singulair 10 mg at bedtime, Tylenol p.o. suppository every 6 hours p.r.n., Xanax 2 mg three times a day p.r.n., Zofran 4 mg IV every 4 hours p.r.n. oxygen nasal cannula incentive spirometry heart healthy diet. CLIFFORD raman, out of bed to chair. The occupational therapy, physical therapy ordered. The patient is still awaiting for approval and acceptance to TCU. The patient was seen by physical therapist the recommended discharge option is Transitional Care Unit. Dictated and electronically signed, not read. Luis San MD
[2018-12-26 19:09] VITALS: PULSE 79
[2018-12-26 20:04] LABS: GLYCOMARK(R) 16.8 mcg/mL (7.3-36.6)
[2018-12-27 20:54] LABS: LYME IGG NEGATIVE (NEGATIVE)
[2018-12-27 21:08] LABS: LYME IGM NEGATIVE (NEGATIVE)
== END 2018-12-26 19:03 | DRG 101 ==
LOC: ED 15:10 → ERH 18:48 → 3RNO 20:39
PROVIDERS: ADMIT Internal Medicine; ATTEND Internal Medicine
DX: G40.89 Other seizures (principal); F11.20 Opioid dependence, uncomplicated; G89.4 Chronic pain syndrome; J44.9 Chronic obstructive pulmonary disease, unspecified; E87.6 Hypokalemia; K59.03 Drug induced constipation; T40.2X5A Adverse effect of other opioids, initial encounter; E55.9 Vitamin D deficiency, unspecified; G47.00 Insomnia, unspecified; E78.5 Hyperlipidemia, unspecified; I45.10 Unspecified right bundle-branch block; D64.9 Anemia, unspecified; M54.9 Dorsalgia, unspecified; R32 Unspecified urinary incontinence; F41.9 Anxiety disorder, unspecified; H54.7 Unspecified visual loss; M19.90 Unspecified osteoarthritis, unspecified site; Z86.711 Personal history of pulmonary embolism; Z86.718 Personal history of other venous thrombosis and embolism; Z91.14 Patient's other noncompliance with medication regimen; Z87.891 Personal history of nicotine dependence

== ENCOUNTER 2018-12-26 19:06 | Inpatient (IN) | payer OTHER ==
[2018-12-26 20:29] VITALS: BMI 25.7
[2018-12-26] MEDS ORDERED: ALPRAZOLAM 2 MG PO PRN (20:31)
[2018-12-26] MEDS: Morphine 30 mg SR Tab PO SCH (21:51)
[2018-12-26 23:11] VITALS: RESP 18
[2018-12-26] MEDS ORDERED: Pneumococcal 23-Valent Vaccine IM ONE (23:11)
[2018-12-27] MEDS: Enoxaparin 40 mg Syringe SC SCH (05:34)
[2018-12-27] MEDS: oxyCODONE 30 mg Immediate Release Tab PO PRN ×2 (05:35→15:16)
[2018-12-27] MEDS: Pantoprazole 40 mg EC Tab PO SCH (05:35)
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
[2018-12-27] MEDS: Morphine 30 mg SR Tab PO SCH ×2 (10:32→21:14)
[2018-12-27] MEDS: Magnesium Oxide 400 mg Tab UD PO SCH ×2 (10:34→18:04)
[2018-12-27] MEDS: POLYETHYLENE GLYCOL 3350 17 GM/Dose PACKET PO SCH ×2 (10:35→18:09)
--- NOTE | 2018-12-27 14:04 | CP.PCM.PCO ---
Physician Communication Note - Physician Communication Note Physician Communication Note: c/w current keppra/lamictal. taper dowb opiates. f/u with pain mx. PT
--- NOTE | 2018-12-27 18:43 | CON ---
DATE: 12/27/2018 HISTORY OF PRESENT ILLNESS: This is a 58-year-old male with the past medical history of DVT, on Xarelto; COPD; arthritis; and seizure. No tongue bite. No urinary incontinence. The patient was started on Keppra and because of side effects, he wants to go to Lamictal. PAST MEDICAL HISTORY: As above. SOCIAL HISTORY: Does not smoke; does not drink. PHYSICAL EXAMINATION NEUROLOGIC: Alert, awake, and oriented x3. No aphasia. Cranial nerves II through XII are tested. Pupil reactive. EOM intact. Visual hazel full. No facial asymmetry. Tongue midline. Motor examination; moves all the extremities equally. Tone normal. Deep tendon reflexes 1+. Both plantars are downgoing. Sensory appears intact. Cerebellar; gait normal. IMPRESSION AND PLAN: Seizure disorder and MRI of the head was negative. The patient changed from Keppra to Lamictal as per order. Ernst Snyder MD
[2018-12-28] MEDS: oxyCODONE 30 mg Immediate Release Tab PO PRN ×3 (04:13→16:44)
[2018-12-28] MEDS: Enoxaparin 40 mg Syringe SC SCH (05:28)
[2018-12-28] MEDS: Pantoprazole 40 mg EC Tab PO SCH (05:29)
[2018-12-28] MEDS: POLYETHYLENE GLYCOL 3350 17 GM/Dose PACKET PO SCH ×2 (10:33→17:19)
[2018-12-28] MEDS: Magnesium Oxide 400 mg Tab UD PO SCH ×2 (10:33→17:28)
[2018-12-28] MEDS: Morphine 30 mg SR Tab PO SCH ×2 (11:11→21:50)
[2018-12-28] MEDS ORDERED: Enoxaparin 40 mg Syringe SC SCH (15:15)
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
[2018-12-29] MEDS: oxyCODONE 30 mg Immediate Release Tab PO PRN ×3 (05:22→17:10)
[2018-12-29] MEDS: Pantoprazole 40 mg EC Tab PO SCH (05:47)
[2018-12-29] MEDS: Enoxaparin 40 mg Syringe SC SCH (05:47)
--- NOTE | 2018-12-29 10:12 | PN ---
DATE: 12/29/2018 SUBJECTIVE: The patient is seen sitting up in the bed in room 313, bed 2. The patient states he has swelling of the left leg which could not completely resolve with swelling of the left ankle. Overnight nurse's notes were reviewed, no adverse events were documented. PHYSICAL EXAMINATION: VITAL SIGNS: T-max 98, pulse 74, blood pressure 102/67. HEENT: Head is normocephalic, atraumatic. Eyes; shows pinkish conjunctiva. Anicteric sclerae. NECK: No neck rigidity. CHEST: Kyphosis. LUNGS: Shows no audible crackle, rales or wheezing. Occasional upper lung rhonchi anteriorly. CARDIOVASCULAR: Shows S1, S2, regular rhythm. ABDOMEN: Soft, positive bowel sound. No palpable hepatosplenomegaly. GENITALIA: Male. RECTAL: Deferred. EXTREMITIES: Shows positive swelling of the lower extremity, left more than the right with ankle swelling. MUSCULOSKELETAL: Shows a body mass index of 27. NEUROLOGIC: The patient is alert, awake, oriented x3. He is able to move upper and lower extremity without assistance. Gait examination is not tested. The patient ambulates with the cane. DIAGNOSTICS: None. IMPRESSION: 1. Gait dysfunction. 2. Deconditioning. 3. Bilateral lower extremity venous stasis, left more than the right. 4. Hypovitaminosis D. 5. Seizure disorder. 6. Hyperlipidemia. 7. Hypomagnesemia. 8. Opioid induced constipation. 9. Chronic narcotic and opioid dependent pain syndrome. 10. Questionable insomnia. 11. Anxiety disorder. PLAN: At this time, the patient has been consulted with the Neurology. Their recommendations noted. The patient is on Colace 100 mg three times a day, Drisdol 50,000 units weekly, Ecotrin 81 mg daily, Keppra 500 mg twice a day, Lamictal 25 mg twice a day. The patient is ordered a dose of Lasix 40 IV x1, Lipitor 40 mg daily, Lovenox 40 mg subcu daily, magnesium oxide 400 mg twice a day, MiraLax 17 g twice a day, morphine extended release 90 mg every 12 hours, oxycodone immediate release 30 mg every 6 hours p.r.n., Protonix 40 mg daily, Remeron 15 mg p.o. at bedtime p.r.n., Senokot 8.6 mg twice a day, Singulair 10 mg at bedtime, Tylenol 650 mg p.o. suppository every 6 hours p.r.n., Xanax 2 mg three times a day p.r.n., Zofran 4 mg IV every 4 hours p.r.n. The patient has been ordered venous Doppler of the both lower extremity stat for evaluation of DVT, incentive spirometry, oxygen 2 liters has been ordered. The patient has been ordered SCDs, CLIFFORD stockings, elevation of the head of the bed, elevation of the legs on two pillows lying and sitting out of bed to chair with assistance, daily weights, physical therapy, occupational therapy ordered. At present, the patient's further management will be dependent upon the patient's clinical condition, hemodynamic status and as per the patient response to therapeutic intervention as per the patient's diagnostic test results and as per recommendation by all the physicians involved in the care of the patient. Dictated and electronically signed, not read. Luis San MD
[2018-12-29] MEDS: Morphine 30 mg SR Tab PO SCH ×2 (10:13→22:13)
[2018-12-29] MEDS: Magnesium Oxide 400 mg Tab UD PO SCH ×2 (10:14→17:09)
[2018-12-29] MEDS: POLYETHYLENE GLYCOL 3350 17 GM/Dose PACKET PO SCH ×2 (10:17→17:54)
[2018-12-29 11:52] LABS: BASO # 0.12 K/mm3 (0.0-2.0); BASO % 1.6 % (0.0-3.0); EOS # 0.4 (0.0-0.7); EOS % 4.6 % (1.5-5.0); HEMOGLOBIN 12.7 g/dL (14.0-18.0); LYMPH # 1.6 (1.2-3.4); LYMPH % 20.3 % (22.0-35.0); MEAN CELL VOLUME 90.7 fl (80.0-105.0); MEAN CORPUSCULAR HEMOGLOBIN 29.6 pg (25.0-35.0); MEAN CORPUSCULAR HGB CONC 32.6 g/dl (31.0-37.0); MEAN PLATELET VOLUME 9.8 fl (7.0-11.0); MONO # 0.6 (0.1-0.6); MONO % 8.4 % (1.0-6.0); RBC 4.29 10^6/uL (3.5-6.1); RED CELL DISTRIBUTION WIDTH 13.7 % (11.5-14.5); WHITE BLOOD COUNT 7.7 10^3/uL (4.5-11.0)
[2018-12-29 11:53] LABS: INR 1.13; PARTIAL THROMBOPLASTIN TIME 41.2 Seconds (26.9-38.3); PROTHROMBIN TIME 12.8 SECONDS (9.4-12.5)
[2018-12-29 12:10] LABS: ALB/GLOB RATIO 1.2 (1.1-1.8); ALBUMIN 4.7 g/dL (3.0-4.8); ALT/SGPT 8 U/L (7-56); AST/SGOT 29 U/L (17-59); BILIRUBIN,DIRECT 0.5 mg/dL (0.0-0.4); BLOOD UREA NITROGEN 28 mg/dL (7-21); GFR NON-AFRICAN AMERICAN > 60
[2018-12-30] MEDS: oxyCODONE 30 mg Immediate Release Tab PO PRN ×4 (01:26→22:33)
[2018-12-30] MEDS: Pantoprazole 40 mg EC Tab PO SCH (05:19)
[2018-12-30] MEDS: Morphine 30 mg SR Tab PO SCH ×2 (09:23→21:30)
[2018-12-30] MEDS: Magnesium Oxide 400 mg Tab UD PO SCH ×2 (09:25→17:25)
[2018-12-30] MEDS: POLYETHYLENE GLYCOL 3350 17 GM/Dose PACKET PO SCH ×2 (09:25→17:25)
--- NOTE | 2018-12-30 11:29 | PN ---
DATE: 12/30/2018 SUBJECTIVE: The patient is in [facility] transitional care unit. The patient is admitted for treatment for seizure disorder. The patient also has history of deep venous thrombosis of the left leg. He has history of substance abuse in the past, history of depression, inability to sleep and insomnia. The patient has history of cerebrovascular disease and hyperlipidemia. PHYSICAL EXAMINATION GENERAL: The patient has deformity and has swelling of the left leg and is sitting in the bed. VITAL SIGNS: This morning the patient's vital signs, pulse is 84, blood pressure 101/64, respirations are 18 and O2 saturation is 94% on room air. HEENT: Head is normocephalic. NECK: The thyroid is not enlarged. JVP is flat. LUNGS: Clear. HEART: Normal sinus rhythm. S1 and S2, present. ABDOMEN: Soft. Liver and spleen are not palpable. CENTRAL NERVOUS SYSTEM: No focal deficits are noted. The patient has history of seizure. The patient is on Keppra and also Lamictal. MEDICATIONS: The patient's list of medications consist of Colace, vitamin D, aspirin, Eliquis for deep vein thrombosis, Keppra 500 mg b.i.d. The patient is on Lamictal 25 mg b.i.d. and Lipitor 40 mg daily. The patient is on magnesium oxide 400 mg b.i.d., morphine extended release tablets 90 mg every 12 hours for pain management. The patient is on oxycodone immediate release 30 mg every 6 hours p.r.n. for pain and pantoprazole 40 mg daily. The patient gets Remeron 50 mg at bedtime, Senokot 8.6 mg for constipation, and Singulair 10 mg daily. The patient was on heart healthy diet. LABORATORY DATA: The BUN is 28 and creatinine is 0.8. All other chemical parameters seem to be within normal range. The CBC; hemoglobin 12.7. The patient was advised this morning to take the Keppra; he keeps refusing to take the Keppra from the nurse. We requested nurse to call Dr. Snyder the neurologist to advise and consult with the patient again to emphasize the need for Keppra. The patient's prognosis is guarded. Overall condition is improving. We will follow up. Sury Azul MD Price # [id number] ABNER
[2018-12-31] MEDS: oxyCODONE 30 mg Immediate Release Tab PO PRN ×4 (04:25→23:07)
[2018-12-31] MEDS: Pantoprazole 40 mg EC Tab PO SCH (05:51)
--- NOTE | 2018-12-31 09:42 | US ---
HISTORY: Leg pain and swelling. Evaluate for DVT PHYSICIAN(S): David Patel MD. TECHNIQUE: Duplex sonography and color-flow Doppler with graded compression were used to evaluate the deep venous systems of both lower extremities. FINDINGS: There is hypoechoic occlusive thrombus in the left external iliac vein, left common femoral vein, left femoral vein, left popliteal vein and visualized left tibial veins. The superior extent of the thrombus is not determined. There is no sonographic evidence for deep venous thrombosis the visualized segments of the right lower extremity. IMPRESSION: Extensive acute hypoechoic left iliofemoral DVT. The superior extent of the thrombus is not determined. The patient may benefit from a CTA of the pulmonary arteries followed immediately by CT of the abdomen and pelvis to evaluate the IVC and iliac veins.
[2018-12-31] MEDS: Magnesium Oxide 400 mg Tab UD PO SCH ×2 (10:52→17:37)
[2018-12-31] MEDS: Morphine 30 mg SR Tab PO SCH ×2 (10:53→21:39)
[2018-12-31] MEDS: POLYETHYLENE GLYCOL 3350 17 GM/Dose PACKET PO SCH ×2 (10:53→17:46)
--- NOTE | 2018-12-31 13:11 | PN ---
DATE: 12/31/2018 SUBJECTIVE: The patient was seen sitting up in the chair in room 313, bed 2. The patient is alert, awake, awake, oriented x3. PHYSICAL EXAMINATION VITAL SIGNS: T-max 98.2, heart rate 84, blood pressure 101/64, respirations 18, O2 sat 93-94%. HEENT AND NECK: Head: Normocephalic, atraumatic. HEENT examination shows pinkish pale conjunctivae. Anicteric sclerae. No oropharyngeal lesion. No neck rigidity. CHEST: Positive kyphosis of the thoracic spine. LUNGS: Show no audible crackles, rales or wheezing. CARDIOVASCULAR: S1, S2, regular rhythm. Questionable soft systolic murmur left sternal border, right second intercostal space, left second intercostal space. ABDOMEN: Soft, positive bowel sounds. GENITALIA: Male. RECTAL: Deferred. EXTREMITIES: Show positive swelling of the lower extremity. MUSCULOSKELETAL: Shows a body mass index of 26.1. NEUROLOGIC: The patient is alert, awake, oriented x3, is able to move upper and lower extremities without assistance. Gait examination is not tested. DIAGNOSTICS: The patient's CBC from 12/29; PT, PTT, chemistry reviewed. Venous Doppler reviewed. IMPRESSION 1. Extensive acute hypoechoic left iliofemoral deep venous thrombosis with superior extent of the thrombus not determined. 2. Bilateral lower extremity venous stasis. 3. Transient tachycardia. 4. History of deep venous thrombosis and pulmonary embolism. 5. Mild normocytic anemia. 6. Mild metabolic alkalosis. 7. Prerenal kidney injury. 8. Mild hypoglycemia. 9. Gait dysfunction. 10. Deconditioning. 11. Seizure disorder. 12. Hypovitaminosis D. 13. Hyperlipidemia. 14. Hypomagnesemia. 15. Opioid-induced constipation and chronic narcotic and opioid dependent pain syndrome. 16. Insomnia. 17. Anxiety disorder. 18. Opioid-induced constipation. PLAN: The patient was seen and explained about the recurrent blood clots of the legs and need for long-term anticoagulation which he acknowledged understand. The patient's case was discussed with Dr. David Patel. Dr. David Patel recommends to get a CTA of the chest and abdomen and pelvis for evaluation of the extent of the left iliofemoral DVT. In the interim, the patient will be continued on Eliquis 5 mg twice a day, Colace 100 mg 3 times a day, Drisdol 50,000 weekly, Ecotrin 81 mg daily, Lamictal 50 mg twice a day, Lipitor 40 mg daily, magnesium oxide 400 mg twice a day, MiraLax 17 g twice a day, morphine extended release 90 mg every 12 hours, oxycodone 30 mg every 6 hours p.r.n., Protonix 40 mg daily for GI prophylaxis, Remeron 50 mg at bedtime p.r.n., Senokot 8.6 mg b.i.d., Singulair 10 mg daily, Tylenol p.o. suppository every 6 hours p.r.n., Xanax 2 mg t.i.d. p.r.n., Zofran 4 mg IV every 4 hours p.r.n. The patient will be ordered CTA of the chest, abdomen, and pelvis. The patient has been advised and we re-advised the need to continue long-term anticoagulation, risk of thromboembolic phenomena explained to the patient in layman's language. All questions concerned answered. Dictated and electronically signed, not read. Luis San MD
[2019-01-01] MEDS: Pantoprazole 40 mg EC Tab PO SCH (05:10)
[2019-01-01] MEDS: oxyCODONE 30 mg Immediate Release Tab PO PRN ×4 (05:10→23:30)
[2019-01-01 08:32] LABS: BLOOD UREA NITROGEN 19 mg/dL (7-21); CALCIUM 8.5 mg/dL (8.4-10.5); GFR NON-AFRICAN AMERICAN > 60
[2019-01-01] MEDS: Morphine 30 mg SR Tab PO SCH ×2 (10:08→21:38)
[2019-01-01] MEDS: Magnesium Oxide 400 mg Tab UD PO SCH ×2 (10:10→17:25)
[2019-01-01] MEDS: POLYETHYLENE GLYCOL 3350 17 GM/Dose PACKET PO SCH ×3 (10:10→17:25)
--- NOTE | 2019-01-01 15:43 | PN ---
DATE: 01/01/2019 SUBJECTIVE: The patient is in CCU room 313, bed 2. Overnight nurse's notes were reviewed. The patient underwent CTA of the chest and CT of the abdomen and pelvis with contrast venous phase, which the patient tolerated. Overnight nurse's notes were reviewed. No adverse events were documented, notified, called for. PHYSICAL EXAMINATION VITAL SIGNS: T-max 98.2, pulse 84, blood pressure 101/64, respirations 18, O2 sat 94%. HEENT AND NECK: Head: Normocephalic, atraumatic. HEENT examination shows pinkish conjunctivae. Anicteric sclerae. No oropharyngeal lesion. No neck rigidity. CHEST: Kyphosis. LUNGS: Show no audible crackles, rales or wheezing. CARDIOVASCULAR: S1, S2, regular rhythm. Positive systolic murmur left sternal border, right second intercostal space, left second intercostal space. ABDOMEN: Soft, positive bowel sounds. GENITALIA: Male. RECTAL: Deferred. EXTREMITIES: Show positive swelling of the lower extremity, left more than the right. Gait examination is not tested. VASCULAR: Palpable pulses. Cranial nerves II-XII intact. PSYCHIATRIC: Positive for history of anxiety. LABORATORY DATA: Lab data from today; sodium 138, potassium 3.9, chloride 95, CO2 of 37, BUN 19, creatinine 0.6, glucose 90, calcium 8.5, magnesium 2.0. CTA of the chest and CT of the abdomen and pelvis reviewed. IMPRESSION 1. Acute left iliofemoral deep venous thrombosis. 2. Bibasilar atelectasis. 3. Thoracic spine compression fracture, status post kyphoplasty. 4. Sigmoid diverticulosis. 5. Left hip postoperative changes with muscular atrophy of the left iliopsoas muscle. 6. Acute left iliofemoral deep vein thrombosis and upper extent of the deep vein thrombosis unaccessible. 7. History of poor compliance and noncompliance. 8. Seizure disorder. 9. Chronic opioid and narcotic dependent pain syndrome. 10. Deconditioning. 11. Gait dysfunction. 12. Right bundle-branch block. 13. Hyperlipidemia. 14. Narcotic and opioid induced chronic constipation. 15. Thoracolumbar spine kyphosis. 16. Anxiety disorder. 17. Insomnia. PLAN: At this time, the patient is to be continued on all the therapeutic intervention as per the MAR including the Eliquis. The patient has been requested to be seen by Dr. David Patel. Case discussed with Dr. David Patel at length, the recommendations from the Interventional Radiology due to the patient's history of noncompliance with anticoagulation in the past. The best therapeutic intervention at this time is the patient will require an IVC filter. About this issue, the patient was explained about the need for IVC filter which was discussed by Dr. David Patel with the patient. I have also reinforced to the patient that because of the previous history of noncompliance with anticoagulation, the patient will be extremely high risk for further thromboembolic complication, so the best option available is placement of the IVC filter placement, which will be done either on the day of discharge from TCU or immediately after to that. Once the patient is discharged from TCU, Dr. David Patel will place IVC filter. At this time, the patient will be continued on all the therapeutic intervention as per the MAR, which has been reviewed. The patient has been updated about his condition, diagnosis, test results at length. All questions concerned answered. Dictated and electronically signed, not read. Luis San MD
[2019-01-02] MEDS: Pantoprazole 40 mg EC Tab PO SCH (05:43)
[2019-01-02] MEDS: oxyCODONE 30 mg Immediate Release Tab PO PRN ×3 (05:43→18:15)
[2019-01-02] MEDS ORDERED: Non Formulary Medication (Cholecalciferol (Vitamin D3) [Vitamin D3] 50,000 UNIT) PO SCH (10:00)
[2019-01-02] MEDS ORDERED: Ergocalciferol 50,000 Intl Units Cap PO SCH (10:00)
[2019-01-02] MEDS: Magnesium Oxide 400 mg Tab UD PO SCH ×2 (10:25→17:44)
[2019-01-02] MEDS: POLYETHYLENE GLYCOL 3350 17 GM/Dose PACKET PO SCH ×2 (10:25→17:44)
[2019-01-02] MEDS: Morphine 30 mg SR Tab PO SCH ×2 (10:26→21:36)
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
[2019-01-03] MEDS: oxyCODONE 30 mg Immediate Release Tab PO PRN ×3 (02:01→14:04)
[2019-01-03] MEDS: Pantoprazole 40 mg EC Tab PO SCH (05:45)
[2019-01-03] MEDS: Magnesium Oxide 400 mg Tab UD PO SCH (10:37)
[2019-01-03] MEDS: POLYETHYLENE GLYCOL 3350 17 GM/Dose PACKET PO SCH (10:38)
[2019-01-03] MEDS: Morphine 30 mg SR Tab PO SCH (10:38)
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
--- NOTE | 2019-01-03 12:56 | PN ---
DATE: 01/03/2019 TIME: 10:45 a.m. SUBJECTIVE: The patient is refusing IVC filter placement. He has been extensively counseled about compliance with his anticoagulation as an outpatient. He has had recurrent venous thromboembolic events and this is a life-threatening condition. He appears to understand. Dr. San was notified. David Patel MD MTDD
[2019-01-03 15:08] VITALS: BP 121/73; PULSE 78; TEMP 98.3; O2SAT 95
== END 2019-01-03 15:46 | disposition home or self-care (01) | DRG 101 ==
LOC: TRCU 19:06
PROVIDERS: ADMIT Internal Medicine; ATTEND Internal Medicine
PROC: F07Z9FZ Gait Training/Functional Ambulation Treatment using Assistive, Adaptive, Supportive or Protective Equipment (ICD-10-PCS; principal; 2018-12-27)
PROC: F07M6ZZ Therapeutic Exercise Treatment of Musculoskeletal System - Whole Body (ICD-10-PCS; 2018-12-27)
PROC: F08Z1ZZ Dressing Techniques Treatment (ICD-10-PCS; 2018-12-27)
PROC: F08Z2ZZ Grooming/Personal Hygiene Treatment (ICD-10-PCS; 2018-12-27)
PROC: F08Z0ZZ Bathing/Showering Techniques Treatment (ICD-10-PCS; 2018-12-27)
PROC: F08Z4ZZ Home Management Treatment (ICD-10-PCS; 2018-12-27)
DX: G40.909 Epilepsy, unspecified, not intractable, without status epilepticus (principal); E87.3 Alkalosis; F11.20 Opioid dependence, uncomplicated; J98.11 Atelectasis; D64.9 Anemia, unspecified; E16.2 Hypoglycemia, unspecified; E55.9 Vitamin D deficiency, unspecified; E78.5 Hyperlipidemia, unspecified; E83.42 Hypomagnesemia; E87.6 Hypokalemia; F41.9 Anxiety disorder, unspecified; G47.00 Insomnia, unspecified; G89.4 Chronic pain syndrome; I10 Essential (primary) hypertension; I45.10 Unspecified right bundle-branch block; I67.9 Cerebrovascular disease, unspecified; I87.8 Other specified disorders of veins; J44.9 Chronic obstructive pulmonary disease, unspecified; K57.30 Diverticulosis of large intestine without perforation or abscess without bleeding; K59.03 Drug induced constipation; M40.209 Unspecified kyphosis, site unspecified; R09.02 Hypoxemia; T40.2X5A Adverse effect of other opioids, initial encounter; Z79.01 Long term (current) use of anticoagulants; Z79.899 Other long term (current) drug therapy; Z86.711 Personal history of pulmonary embolism; Z86.718 Personal history of other venous thrombosis and embolism; Z87.891 Personal history of nicotine dependence; Z88.6 Allergy status to analgesic agent; Z91.14 Patient's other noncompliance with medication regimen; Z91.19 Patient's noncompliance with other medical treatment and regimen; R26.9 Unspecified abnormalities of gait and mobility; M62.50 Muscle wasting and atrophy, not elsewhere classified, unspecified site

== ENCOUNTER 2018-12-31 17:14 | Outpatient (CLI) | payer MEDICARE, OTHER | END 2018-12-31 17:15 | disposition home or self-care (01) | LOC: RAD 17:14 ==